=== PATIENT | female | born 1955 | race Caucasian/White ===

== ENCOUNTER → 2019-10-14 12:12 | Outpatient (BNVA) | payer MEDICARE, OTHER, SELFPAY | PROVIDERS: PCP Family Medicine; Visit Provider Family Medicine | DX: I10 Essential (primary) hypertension (principal); M25.50 Pain in unspecified joint; Z12.31 Encounter for screening mammogram for malignant neoplasm of breast; Z12.11 Encounter for screening for malignant neoplasm of colon; R60.0 Localized edema; Z00.00 Encounter for general adult medical examination without abnormal findings | CPT/HCPCS: 80053; 80061; 84443; 84550; 85025; 85651; 86431 ==

== ENCOUNTER 2019-10-27 08:39 | Day surgery (SDC) | payer MEDICARE, OTHER, SELFPAY ==
[2019-10-23 10:45] VITALS: BMI 57.4
[2019-10-27 08:55] VITALS: BP 198/88; PULSE 80; RESP 18; TEMP 36.3; O2SAT 98
[2019-10-27] MEDS: sodium chloride 0.9% 1,000 ML 30 ML IV (09:05)
--- NOTE | 2019-10-27 09:10 | P.ANESASSM_ITS ---
Pre-Anesthetic Assessment Pre-Anesthetic Assessment: Height/Weight: Height 1.65 m Weight 156.489 kg Temp Pulse Resp BP Pulse Ox 97.3 F L 80 18 198/88 98 10/27/19 08:55 10/27/19 08:55 10/27/19 08:55 10/27/19 08:55 10/27/19 08:55 Preop Diagnosis: s Proposed Procedure: Operation Date: 10/27/19 10:15 Proposed Procedures p Colonoscopy 15052 Z12.11(Not Applicable) - Prabhjot Ojeda MD Last intake: Intake Last Liquid Date 10/26/19 Last Liquid Time 21:00 Last Solid Date 10/24/19 Last Solid Time 18:00 Social: Social History: Tobacco (quit 2002) and No alcohol Exam: Pre-Anes Outpt Exam: alert, oriented x 3, clear to auscultation bilater ally and regular rate & rhythm Airway: Submandibular: WNL Cervical ROM: WNL MP: 2 Dentition: False (upper and lower) History/ROS: No significant history except as noted Pulmonary: Pulmonary: None reported CV/HEM: CV/HEM: HTN : : None reported Hepatic: Hepatic: None reported GI: GI: GERD (occ) Metabolic: Metabolic: Hyperlipidemia and Morbid obesity Musc/skel: Musc/skel: OA/DJD Neuropsych: Neuropsych: None reported Anesthetic Plan: ASA status: 3 Anesthesia: Anesthesia Evaluation and MAC Risk of > 500 ml blood loss (7ml/kg in children): No Meds/Allergies Current Medications: Current Medications Generic Name Dose Route Start Last Admin Trade Name Freq PRN Reason Stop Dose Admin Sodium Chloride 1,000 mls @ 30 ml s/hr 10/27/19 09:00 10/27/19 09:05 Sodium Chloride 0.9% IV 10/28/19 08:59 30 mls/hr .Q24H BETTY Administration PFSH Anesthesia PFSH: Medical History Arthralgia Essential hypertension Surgical History History of appendectomy History of bilateral cataract extraction History of hysterectomy Family History Mother CAD (coronary artery disease) Diabetes Hypertension Sister CAD (coronary artery disease) Cancer Diabetes Social History Smoking and tobacco status: smoker, details unknown Quit status (tobacco): has quit using tobacco Year quit tobacco: 2002 Second hand smoke exposure: No Alcohol intake: never Household members: spouse Marital status: History of recent travel: No Data Anesthesia Cardiac Studies: No Data to Display
--- NOTE | 2019-10-27 10:51 | W.PM.OPSUD ---
Surgery/Procedure H&P Update DATE OF PROCEDURE: October 27, 2019 DATE H&P PERFORMED: 10/22/19 PREOP DIAGNOSIS: s PLANNED PROCEDURE: Operation Date: 10/27/19 10:15 Proposed Procedures p Colonoscopy 81463 Z12.11(Not Applicable) - Prabhjot Ojeda MD
[2019-10-27 11:06] VITALS: BP 112/67; PULSE 94; RESP 16; TEMP 36.6; O2SAT 97
--- NOTE | 2019-10-27 11:07 | ANE.PACU2 ---
Inpatient post-anesthesia follow up: Airway intact: Yes Vital signs: Temperature 97.3 F Pulse Rate 80 Respiratory Rate 18 Blood Pressure 198/88 Pulse Oximetry 98 Oxygen Delivery Me thod Oxygen Flow Rate Fraction of Inspir ed Oxygen Hydration adequate: Yes Nausea and vomiting: No Pain level: 1 Mental status: Baseline
[2019-10-27 11:18] VITALS: BP 120/74; PULSE 69; RESP 16; O2SAT 100
== END 2019-10-27 11:33 | disposition home or self-care (01) ==
PROVIDERS: PCP Family Medicine; Visit Provider Internal Medicine
PROC: 0DJD8ZZ Inspection of Lower Intestinal Tract, Via Natural or Artificial Opening Endoscopic (ICD-10-PCS; CPT 45378; principal; 2019-10-27 10:15)
DX: Z12.11 Encounter for screening for malignant neoplasm of colon (principal); I10 Essential (primary) hypertension; K21.9 Gastro-esophageal reflux disease without esophagitis; E78.5 Hyperlipidemia, unspecified; E66.01 Morbid (severe) obesity due to excess calories; Z68.43 Body mass index [BMI] 50.0-59.9, adult; M19.90 Unspecified osteoarthritis, unspecified site; Z87.891 Personal history of nicotine dependence
CPT/HCPCS: 12345; G0121; J2704; J7030

== ENCOUNTER 2019-10-28 09:05 | Emergency (ER) | payer MEDICARE, OTHER, SELFPAY ==
[2019-10-28 09:11] VITALS: BMI 57.0
[2019-10-28 09:17] VITALS: BP 178/74; PULSE 73; RESP 20; TEMP 36.8; O2SAT 97
--- NOTE | 2019-10-28 09:27 | XR_ITS ---
WS: [id number] PORTABLE CHEST HISTORY: cp COMPARISON: 04/27/2009 Lungs are clear and well expanded. No pleural effusion or pneumothorax. Cardiac size: Normal. Mediastinum/Aorta: Normal mediastinum. No osseous abnormality seen. XR/XR chest 1V portable [id number] IMPRESSION: Unremarkable portable chest.
--- NOTE | 2019-10-28 09:27 | ECG_ITS ---
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 Measurements Intervals [place] Rate: 72 P: 83 FL: 172 QRS: -41 QRSD: 134 T: 80 QT: 391 QTc: 430 Interpretive Statements SINUS RHYTHM LEFT AXIS DEVIATION [QRS AXIS < -30] INTRAVENTRICULAR CONDUCTION DELAY [130+ ms QRS DURATION] LEFT VENTRICULAR HYPERTROPHY AND ST-T CHANGE [VOLTAGE CRITERIA PLUS ST/T ABNORMALITY] POSSIBLE SEPTAL MYOCARDIAL INFARCTION , OF INDETERMINATE AGE [30 ms Q WAVE IN V1/V2] No previous ECG available for comparison Electronically Signed On 10-28-2019 23:41:31 CDT by Yamil Vu M.D. [id number]
[2019-10-28 09:33] LABS: Basophils # 0.1 10^3/uL (0.0-0.1); Eosinophils # 0.3 10^3/uL (0.0-0.8); Eosinophils % 3.1 %; Hematocrit 40.3 % (37.0-47.0); Hemoglobin 12.5 g/dL (11.5-15.3); Lymphocytes # 1.5 10^3/uL (0.8-4.8); Lymphocytes % 14.9 %; Mean Corpuscular Hemoglobin 27.1 pg (28.0-34.0); Mean Corpuscular Volume 87.4 fL (81-99); Mean Platelet Volume 10.9 fL (7.4-10.4); Monocytes # 0.8 10^3/uL (0.2-0.9); Monocytes % 8.4 %; Neutrophils # 7.2 10^3/uL (1.8-7.7); Neutrophils % 72.4 %; Nucleated Red Blood Cells % 0 %; Platelet Count 273 10^3/cmm (130-400); Red Blood Count 4.61 10^6/uL (4.1-5.3); Red Cell Distribution Width 13.3 % (12.1-15.1)
[2019-10-28 09:58] LABS: Alanine Aminotransferase 13 U/L (0-33); Albumin Level 4.1 g/dL (3.5-5.2); Alkaline Phosphatase 83 IU/L (35-105); Anion Gap 16.9 (5-19); Aspartate Amino Transferase 12 U/L (0-32); Blood Urea Nitrogen 19 mg/dL (8-23); Calcium 9.3 mg/dL (8.5-10.5); Carbon Dioxide 28 mmol/L (22-29); Chloride 96 mmol/L (98-107); Globulin 2.7 g/dL (1.3-4.6); Glucose 275 mg/dL (65-115); Osmolality Calculated 290 mOsm/kg (285-295); Potassium 3.9 mmol/L (3.5-5.1); Sodium 137 mmol/L (136-145); Total Bilirubin 0.5 mg/dL (0.15-1.2); Total Protein 6.8 g/dL (6.6-8.7); Troponin(5th) Baseline 10 ng/L (0-10)
--- NOTE | 2019-10-28 11:25 | W.ED.CHESTPA ---
HPI - Chest Pain General: Chief Complaint: Chest Pain Stated Complaint: CP/HEAVY ARMS Time Seen by Provider: 10/28/19 09:14 History of Present Illness: HPI narrative: 63-year-old female presents with left jaw pain and left arm pain. She had some left-sided chest pain she describes as a stabbing sensation that began while she was sitting at the table and picked up a bowl. She is not previously had episodes like this before she has no known cardiac history she is never had any kind of cardiac work-up. She denied any shortness of breath or diaphoresis with it she did get nauseous she said it only lasted for a few minutes and then is completely resolved. She did have a colonoscopy yesterday. She still has some loose stools as a result of that. MD complaint: chest pain and chest heaviness Onset (ago): minute(s) Timing of current episode: episodic and now resolved Prior episodes: No Onset: during rest Pain location: left chest Pain radiation: left arm and left shoulder Severity: mild Quality: sharp and shooting Relieving factors: nothing Exacerbating factors: nothing Context: recent surgery (Colonoscopy yesterday) Associated symptoms: Reports no associated symptoms; Deny abdominal pain, dyspnea, fever(s), nausea or vomiting Review of Systems Const: Denies: fever(s), chills, body aches, change in appetite, fatigue or malaise ENMT: Denies: throat pain, ear or mastoid pain, nasal discharge or nasal congestion Card: Denies: chest pain, edema, dyspnea on exertion or orthopnea Resp: Denies: dyspnea, productive cough or non-productive cough GI: Reports: diarrhea; Denies: abdominal pain, nausea, vomiting, hematemesis, coffee ground emesis, constipation, bloating, hematochezia or melena : Denies: flank pain, difficulty voiding, dysuria, urinary frequency or urinary urgency Skin/Breast: Denies: rash or pruritus PFSH ED PFSH: Medical History Arthralgia Essential hypertension Surgical History History of appendectomy History of bilateral cataract extraction History of hysterectomy Family History Mother CAD (coronary artery disease) Diabetes Hypertension Sister CAD (coronary artery disease) Cancer Diabetes Social History Smoking and tobacco status: former smoker Quit status (tobacco): has quit using tobacco Year quit tobacco: 2002 Second hand smoke exposure: No Alcohol intake: never Household members: spouse Marital status: History of recent travel: No Physical Exam Const: COMMON NORMALS: no acute distress GENERAL APPEARANCE: cooperative and comfortable ORIENTATION/CONSCIOUSNESS: Yes awake, Yes oriented to person, Yes oriented to place and Yes oriented to time HENMT: COMMON NORMALS: normocephalic, atraumatic, hearing grossly normal bilaterally, external ears normal, EAC's normal, TM's normal bilaterally, Normal nasal mucous membranes and turbinates present, moist oral mucous membranes and oropharynx normal HEAD & SCALP: normocephalic and atraumatic NOSE: Normal nasal mucous membranes and turbinates present EXTERNAL EAR: Yes external ears normal EXTERNAL AUDITORY CANAL: EAC's normal TYMPANIC MEMBRANE: TM's normal bilaterally Eye: COMMON NORMALS: Equal, round and reactive pupils present, EOMs intact bilaterally, conjunctivae normal and no scleral icterus CONJUNCTIVA: Yes conjunctivae normal PUPIL: Yes Equal, round and reactive pupils present Neck/C-Spine: COMMON NORMALS: full ROM, no lymphadenopathy, supple and no JVD Lymph: LYMPHATIC: no lymphadenopathy noted and no lymphedema noted Resp: COMMON NORMALS: normal respiratory effort, No retractions, No use of accessory muscles and clear to auscultation bilaterally AUSCULTATION: clear to auscultation bilaterally Cardio: COMMON NORMALS: no JVD, regular rate, regular rhythm and No murmurs present (Cardio) RATE: regular rate RHYTHM: regular rhythm GI: COMMON NORMALS: Soft to palpation and No hepatosplenomegaly present AUSCULTATION: Yes normoactive bowel sounds PALPATION: Yes Soft to palpation, No Tenderness to palpation present (GI), No Guarding due to palpation present (GI) and Yes No hepatosplenomegaly present Extremity: COMMON NORMALS: normal to inspection, capillary refill normal, no clubbing, cyanosis or edema, no calf tenderness and no pedal edema Neuro: SENSORIUM/ORIENTATION: Yes oriented to person, Yes oriented to place and Yes oriented to time Skin: COMMON NORMALS: no rashes or lesions noted GENERAL SKIN EXAM: no rashes or lesions noted Course Vital Signs: Vital signs: Vital Signs Temperature 98.2 F 10/28/19 09:17 Pulse Rate 64 10/28/19 12:29 Respiratory Rate 16 10/28/19 12:29 Blood Pressure 141/56 10/28/19 12:29 Pulse Oximetry 96 10/28/19 12:29 MDM - Chest Pain MDM Narrative: Medical decision making narrative: Troponin x2 is negative. We will go ahead and discharge patient home on baby aspirin daily and set up for outpatient stress testing. Lab Data: Labs: Lab Results 10/28/19 10/28/19 10/28/19 Range/Units 09:27 09:27 09:27 WBC 10.0 (4.0-10.0) 10^3/ uL RBC 4.61 (4.1-5.3) 10^6/u L Hgb 12.5 (11.5-15.3) g/dL Hct 40.3 (37.0-47.0) % MCV 87.4 (81-99) fL MCH 27.1 L (28.0-34.0) pg MCHC 31.0 (30.0-36.0) g/dL RDW 13.3 (12.1-15.1) % Plt Count 273 (130-400) 10^3/c mm MPV 10.9 H (7.4-10.4) fL Neut % (Auto) 72.4 % Lymph % (Auto) 14.9 % [place] % (Auto) 8.4 % Eos % (Auto) 3.1 % Baso % (Auto) 1.0 % Neut # (Auto) 7.2 (1.8-7.7) 10^3/u L Lymph # (Auto) 1.5 (0.8-4.8) 10^3/u L [place] # (Auto) 0.8 (0.2-0.9) 10^3/u L Eos # (Auto) 0.3 (0.0-0.8) 10^3/u L Baso # (Auto) 0.1 (0.0-0.1) 10^3/u L Nucleated RBC % (a uto) 0 % Nucleated RBCs # 0.0 /100WBC Sodium 137 (136-145) mmol/L Potassium 3.9 (3.5-5.1) mmol/L Chloride 96 L (98-107) mmol/L Carbon Dioxide 28 (22-29) mmol/L Anion Gap 16.9 (5-19) BUN 19 (8-23) mg/dL Creatinine 1.1 H (0.5-0.9) mg/dL GFR Calculation 50.0 L (90-130) mL/min Glucose 275 H (65-115) mg/dL Calculated Osmolal ity 290 (285-295) mOsm/k g Calcium 9.3 (8.5-10.5) mg/dL Total Bilirubin 0.5 (0.15-1.2) mg/dL AST 12 (0-32) U/L ALT 13 (0-33) U/L Alkaline Phosphata se 83 (35-105) IU/L Troponin T Baselin e 10 (0-10) ng/L Troponin T 120 Min hoopa (0-10) ng/L Delta Troponin T (0-10) ABS# Total Protein 6.8 (6.6-8.7) g/dL Albumin 4.1 (3.5-5.2) g/dL Globulin 2.7 (1.3-4.6) g/dL 10/28/19 Range/Units 11:30 WBC (4.0-10.0) 10^3/ uL RBC (4.1-5.3) 10^6/u L Hgb (11.5-15.3) g/dL Hct (37.0-47.0) % MCV (81-99) fL MCH (28.0-34.0) pg MCHC (30.0-36.0) g/dL RDW (12.1-15.1) % Plt Count (130-400) 10^3/c mm MPV (7.4-10.4) fL Neut % (Auto) % Lymph % (Auto) % [place] % (Auto) % Eos % (Auto) % Baso % (Auto) % Neut # (Auto) (1.8-7.7) 10^3/u L Lymph # (Auto) (0.8-4.8) 10^3/u L [place] # (Auto) (0.2-0.9) 10^3/u L Eos # (Auto) (0.0-0.8) 10^3/u L Baso # (Auto) (0.0-0.1) 10^3/u L Nucleated RBC % (a uto) % Nucleated RBCs # /100WBC Sodium (136-145) mmol/L Potassium (3.5-5.1) mmol/L Chloride (98-107) mmol/L Carbon Dioxide (22-29) mmol/L Anion Gap (5-19) BUN (8-23) mg/dL Creatinine (0.5-0.9) mg/dL GFR Calculation (90-130) mL/min Glucose (65-115) mg/dL Calculated Osmolal ity (285-295) mOsm/k g Calcium (8.5-10.5) mg/dL Total Bilirubin (0.15-1.2) mg/dL AST (0-32) U/L ALT (0-33) U/L Alkaline Phosphata se (35-105) IU/L Troponin T Baselin e (0-10) ng/L Troponin T 120 Min hoopa 9.87 (0-10) ng/L Delta Troponin T -0.13 L (0-10) ABS# Total Protein (6.6-8.7) g/dL Albumin (3.5-5.2) g/dL Globulin (1.3-4.6) g/dL Discharge Plan Discharge Patient Disposition: Home, Self-Care Clinical Impression: Atypical chest pain, Essential hypertension Condition: Stable Prescriptions: New Aspir-81 81 mg tablet,delayed release (DR/EC) 81 mg PO DAILY Qty: 30 RF: 0 No Action lisinopril-hydrochlorothiazide 20-25 mg tablet 1 tab PO DAILY Qty: 30 RF: 1 acetaminophen [Tylenol Arthritis Pain] 650 mg tablet extended release 650 mg PO DAILY RF: 0 rosuvastatin [Crestor] 5 mg tablet 5 mg PO DAILY Qty: 90 RF: 0 Discharge Orders: Discharge Order (Routine); Ordered 10/28/19 Ordered By: Remberto Sheffield Referrals: Helena Frazier MD [Primary Care Provider] - Discharge Diet: Usual diet Discharge Activity: Limit activity as instructed Activity Restrictions/Additional Instructions: Case management will call to set up a stress test for you. Discharge Date/Time: 10/28/19 12:30 Coding Level of Care Code ED Manager Location for Chg Fwd Exam Comprehensive
--- NOTE | 2019-10-28 11:27 | ECG_ITS ---
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 Measurements Intervals [place] Rate: 61 P: 64 [place]: 175 QRS: -38 QRSD: 129 T: 53 QT: 409 QTc: 413 Interpretive Statements SINUS RHYTHM LEFT AXIS DEVIATION [QRS AXIS < -30] POSSIBLE RIGHT VENTRICULAR CONDUCTION DELAY [RSR (QR) IN V1/V2] MINIMAL VOLTAGE CRITERIA FOR LVH, CONSIDER NORMAL VARIANT [MEETS CRITERIA IN ONE OF: R(aVL), S(V1), R(V5), R(V5/V6)+S(V1)] SEPTAL MYOCARDIAL INFARCTION , OF INDETERMINATE AGE [40+ ms Q WAVE IN V1/V2] No previous ECG available for comparison Electronically Signed On 10-29-2019 0:10:17 CDT by Yamil Vu M.D. [id number]
[2019-10-28 11:52] LABS: Troponin 5 2HR 9.87 ng/L (0-10)
[2019-10-28 11:57] LABS: Troponin 5 2HR Delta -0.13 ABS# (0-10)
[2019-10-28 12:29] VITALS: BP 141/56; PULSE 64; RESP 16; O2SAT 96
--- NOTE | 2019-10-28 12:39 | DCPLANNER ---
manager golf was asked to schedule an outpatient stress test for patient. manager golf spoke with patient, she stated that she did want test scheduled and that she sees at the [facility]. manager golf had order signed, faxed to centralized scheduling, will call for appointment information.
--- NOTE | 2019-10-30 14:18 | DCPLANNER ---
Patient has an out patient stress test scheduled for , November at 10:00. Centralized scheduling will call patient with appointment information.
--- NOTE | 2019-11-18 11:24 | DCPLANNER ---
Patient did attend stress test scheduled for 11.13.19.
== END 2019-10-28 12:30 | disposition home or self-care (01) ==
PROVIDERS: Emergency Provider Family Medicine; PCP Family Medicine
DX: R07.89 Other chest pain (principal); I10 Essential (primary) hypertension; Z87.891 Personal history of nicotine dependence
CPT/HCPCS: 12345; 36415; 71045; 80053; 84484; 85025; 93005; 99283; 99284

== ENCOUNTER 2019-11-13 07:13 | Outpatient (CLI) | payer MEDICARE, OTHER, SELFPAY ==
--- NOTE | 2019-11-13 07:37 | NMCV_ITS ---
NM brenda perf SPECT r/s* [id number] Alicja Flaherty Age: 64 Gender: F : 1955 Exam Date: 11/13/2019 08:46 Ordering Phys: Helena Frazier MD Technologist: IRA Garduno Exam Location: [facility] Indications: Atypical chest pain STRESS TEST [facility] IMAGE PROTOCOL Rest/Stress 1 Lexiscan Day Radiopharmaceutical Dose (mCi) Administration Site Administered by Rest: Tc-99m 10.2 IV IRA Garduno Sestamibi Stress:Tc-99m 33.0 IV IRA Holman Sestamibi Rest: 13-Nov-2019 60 Discovery 630 Stress: 13-Nov-2019 60 Discovery 630 0.4mg Lexiscan. Images obtained in supine and prone position. SPECT RESULTS Technical Quality: Good Raw Data Analysis: Breast attenuation, Soft tissue attenuation Image Corrections: No attenuation or motion correction applied Summed Stress Score: 0 Summed Rest Score: 0 Summed Difference Score: 0 PERFUSION FINDINGS SPECT images demonstrate homogeneous tracer distribution throughout the myocardium. FUNCTIONAL RESULTS (calculated via Gated SPECT) Stress Image LV EF (%): 74 Stress EDV (mL):101 TID: 1.02 Stress ESV (mL):26 FUNCTIONAL FINDINGS: The left ventricle is normal in size. Transient Ischemia Dilatation of 1. There is normal left ventricular systolic function. The left ventricular ejection fraction is normal with a value of 74%. There is normal left ventricular wall thickening. Normal end diastolic and end systolic volumes. IMPRESSIONS 1. Myocardial perfusion imaging is normal. 2. Overall left ventricular systolic function is normal without regional wall motion abnormalities. 3. The left ventricular ejection fraction is normal with a value of 74%. 4. This study suggests a low likelihood of angiographically significant coronary artery disease. Edith Mcdaniels MD (Electronically Signed) Final Date: 13 November 2019 12:21 S
--- NOTE | 2019-11-13 07:37 | ECG_ITS ---
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 Interpretive Statements NAME OF STUDY: LEXISCAN SESTAMIBI STRESS TEST INDICATION: Atypical Chest Pain, NOTE: Please note that this is the electrocardiogram portion of the Lexiscan/Sestamibi stress test. The perfusion scan will be documented separately. DATA: Baseline heart rate was 72 beats per minute. Baseline blood pressure was 146/82 millimeters of mercury. Target heart rate was 155. Maximum heart rate achieved was 84. which was 54 % of the predicted target heart rate. Maximum blood pressure was 150/83 millimeters of mercury. The reason for ending the test was completion of the protocol. The patient did not experience any symptoms. ELECTROCARDIOGRAM: BASELINE: Sinus rhythm. Normal axis. Interventricular conduction delay old anterior wall myocardial infarction EXERCISE: After Lexiscan injection, no ST-T changes suggestive of ischemic noted. No arrhythmia noted. CONCLUSION: Please note due to baseline abnormality of the EKG specificity and sensitivity of the EKG portion of LexiScan MIBI stress test will be low 1. EKG not suggestive of ischemia 2. Lexiscan injection unremarkable. 3. Perfusion scan will be documented separately. Electronically Signed On 11-18-2019 19:43:17 CDT by Africa Carr M.D. [id number]
[2019-11-13 08:01] VITALS: BMI 57.0
[2019-11-13] MEDS: ondansetron 2 mg/ML SDV 2 mL 4 MG IVP (09:41)
[2019-11-13 10:23] VITALS: BP 144/79; PULSE 83
== END 2019-11-13 07:14 | disposition home or self-care (01) ==
PROVIDERS: PCP Family Medicine; Visit Provider Family Medicine
DX: R07.89 Other chest pain (principal)
CPT/HCPCS: 78452; 93017; A9500; J2785

== ENCOUNTER 2019-11-18 13:29 | Outpatient (CLI) | payer MEDICARE, OTHER, SELFPAY ==
--- NOTE | 2019-11-18 14:00 | MM_ITS ---
WS: [id number] BILATERAL DIGITAL SCREENING MAMMOGRAPHY WITH CAD CLINICAL INFORMATION: screening HISTORY: Screening mammogram. No current complaints. COMPARISON: February 06, 2007 TECHNIQUE: Bilateral CC and MLO views. FINDINGS: Scattered fibroglandular densities bilaterally. No suspicious focal mass, asymmetry, calcifications, or architectural distortion. No evidence of malignancy. Stable Punctate calcifications left breast. MM/[place] [id number] IMPRESSION: BI-RADS: 2-Benign FOLLOW UP: 1 Year Follow-up Recommend return to annual screening mammography.
== END 2019-11-18 13:30 | disposition home or self-care (01) ==
LOC: RADSHAW 13:35
PROVIDERS: PCP Family Medicine; Visit Provider Family Medicine
DX: Z12.31 Encounter for screening mammogram for malignant neoplasm of breast (principal)
CPT/HCPCS: 77067

== ENCOUNTER → 2020-02-04 10:39 | Outpatient (BNVA) | payer MEDICARE, OTHER, SELFPAY | PROVIDERS: PCP Family Medicine; Visit Provider Family Medicine | DX: I10 Essential (primary) hypertension (principal); E78.5 Hyperlipidemia, unspecified; E78.2 Mixed hyperlipidemia | CPT/HCPCS: 80053; 80061; 84443; 85025 ==

== ENCOUNTER → 2020-02-11 13:56 | Outpatient (BNVA) | payer MEDICARE, OTHER, SELFPAY | PROVIDERS: PCP Family Medicine; Visit Provider Podiatrist Foot & Ankle Surgery | DX: M79.675 Pain in left toe(s) (principal) | CPT/HCPCS: 73630 ==

== ENCOUNTER 2020-04-14 12:18 | Outpatient (CLI) | payer MEDICARE, OTHER, SELFPAY ==
--- NOTE | 2020-04-14 12:45 | USCV_ITS ---
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 Some features of extensive arterial sclerosis Dr Yamil Vu MD [facility] (Electronically Signed) Final Date: 16 April 2020 18:53 S
== END 2020-04-14 12:19 | disposition home or self-care (01) ==
LOC: US 12:18
PROVIDERS: PCP Family Medicine; Visit Provider Podiatrist Foot & Ankle Surgery
DX: M79.672 Pain in left foot (principal)
CPT/HCPCS: 93923

== ENCOUNTER → 2020-05-26 11:59 | Outpatient (BNVA) | payer MEDICARE, OTHER, SELFPAY | PROVIDERS: PCP Family Medicine; Visit Provider Family Medicine | DX: E78.2 Mixed hyperlipidemia (principal); I10 Essential (primary) hypertension; Z76.0 Encounter for issue of repeat prescription; M25.50 Pain in unspecified joint | CPT/HCPCS: 80053; 80061; 84443; 85025 ==

== ENCOUNTER → 2020-08-25 11:38 | Outpatient (BNVA) | payer MEDICARE, OTHER, SELFPAY | PROVIDERS: PCP Family Medicine; Visit Provider Family Medicine | DX: E78.2 Mixed hyperlipidemia (principal); I10 Essential (primary) hypertension; M25.50 Pain in unspecified joint | CPT/HCPCS: 80053; 80061; 84443; 85025 ==

== ENCOUNTER → 2020-08-29 14:53 | Outpatient (BNVA) | payer MEDICARE, OTHER, SELFPAY | PROVIDERS: PCP Family Medicine; Visit Provider Nurse Practitioner | DX: M17.12 Unilateral primary osteoarthritis, left knee (principal) | CPT/HCPCS: 73562 ==

== ENCOUNTER → 2020-11-24 10:24 | Outpatient (BNVA) | payer MEDICARE, OTHER, SELFPAY | PROVIDERS: PCP Family Medicine; Visit Provider Nurse Practitioner Family | DX: I10 Essential (primary) hypertension (principal); E78.2 Mixed hyperlipidemia; M79.89 Other specified soft tissue disorders; M17.12 Unilateral primary osteoarthritis, left knee; R73.9 Hyperglycemia, unspecified | CPT/HCPCS: 80053; 80061; 83036; 84443; 85025 ==

== ENCOUNTER → 2020-12-01 09:12 | Outpatient (BNVA) | payer MEDICARE, OTHER, SELFPAY | PROVIDERS: PCP Family Medicine; Visit Provider Nurse Practitioner Family | DX: D64.9 Anemia, unspecified (principal); E11.9 Type 2 diabetes mellitus without complications | CPT/HCPCS: 82728; 83550 ==

== ENCOUNTER → 2020-12-10 10:16 | Outpatient (BNVA) | payer MEDICARE, OTHER, SELFPAY | PROVIDERS: PCP Nurse Practitioner Family; Visit Provider Nurse Practitioner Family | DX: D64.9 Anemia, unspecified (principal) | CPT/HCPCS: 82270 ==

== ENCOUNTER → 2020-12-22 09:42 | Outpatient (BNVA) | payer MEDICARE, OTHER, SELFPAY | PROVIDERS: PCP Nurse Practitioner Family; Visit Provider Podiatrist Foot & Ankle Surgery | DX: M19.072 Primary osteoarthritis, left ankle and foot (principal) | CPT/HCPCS: 73630 ==

== ENCOUNTER 2021-02-03 14:20 | Outpatient (CLI) | payer MEDICARE, OTHER, SELFPAY ==
--- NOTE | 2021-02-03 14:30 | MM_ITS ---
WS: [id number] BILATERAL SCREENING DIGITAL MAMMOGRAM WITH CAD HISTORY: SCREENING COMPARISON: 11/18/2019 and 02/06/2007 Bilateral CC and MLO views submitted. Computer aided detection analyzed. Breast composition: There are scattered areas of fibroglandular density. No suspicious masses, microc alcifications or architectural distortion. Benign calcifications in the LEFT breast is stable. No lili picious masses. MM/[place] [id number] IMPRESSION: BI-RADS: 2-Benign FOLLOW UP: 1 Year Follow-up
== END 2021-02-03 14:21 | disposition home or self-care (01) ==
LOC: RADSHAW 14:27
PROVIDERS: PCP Nurse Practitioner Family; Visit Provider Nurse Practitioner Family
DX: Z12.31 Encounter for screening mammogram for malignant neoplasm of breast (principal)
CPT/HCPCS: 77067

== ENCOUNTER → 2021-02-23 08:37 | Outpatient (BNVA) | payer MEDICARE, OTHER, SELFPAY | PROVIDERS: PCP Nurse Practitioner Family; Visit Provider Nurse Practitioner Family | DX: E11.9 Type 2 diabetes mellitus without complications (principal); Z79.4 Long term (current) use of insulin; E78.2 Mixed hyperlipidemia; M25.50 Pain in unspecified joint; M79.89 Other specified soft tissue disorders; I10 Essential (primary) hypertension | CPT/HCPCS: 80053; 80061; 83036; 84443; 85025 ==

== ENCOUNTER 2021-04-18 11:38 | Outpatient (CLI) | payer MEDICARE, OTHER, SELFPAY ==
--- NOTE | 2021-04-18 11:44 | XR_ITS ---
WS: [id number] CHEST 2 VIEWS HISTORY: R05.9 - Cough, unspecified COMPARISON: 10/28/2019 Lungs: Costophrenic angles are excluded on the PA projection. Diffuse haziness and increased intersti tial thickening throughout both lungs but greatest on the LEFT. Pulmonary vasculature is mildly promi nent. No pleural effusion. Cardiac size: Normal. Mediastinum/Aorta: Mild atherosclerosis aorta. Bones: Anterior bridging osteophytes throughout the thoracic spine. XR/XR chest 2V* [id number] IMPRESSION: 1. Mild diffuse acute pneumonitis versus mild pulmonary edema. 2. No pneumonia.
== END 2021-04-18 11:39 | disposition home or self-care (01) ==
PROVIDERS: PCP Nurse Practitioner Family; Visit Provider Nurse Practitioner Family
DX: R05.9 Cough, unspecified (principal); Z20.822 Contact with and (suspected) exposure to COVID-19
CPT/HCPCS: 71046; 87400; 87635

== ENCOUNTER 2021-04-27 10:26 | Outpatient (CLI) | payer MEDICARE, OTHER, SELFPAY ==
--- NOTE | 2021-04-27 10:41 | XR_ITS ---
WS: [id number] PROCEDURE: XR chest 2V* [id number] CLINICAL INFORMATION: J18.9 - Pneumonia, unspecified organism COMPARISON: April 18, 2021 FINDINGS: Heart: Mild cardiomegaly. Aortic calcification. Lungs: Both lungs are well aerated. No acute pulmonary infiltrates today. Previously described inters titial infiltrates have essentially resolved. No focal pneumonia or pleural fluid. Bones: Hypertrophic changes thoracic spine with bridging osteophytes.. XR/XR chest 2V* [id number] IMPRESSION: Previously described interstitial infiltrates have resolved. No acute pulmonary infiltrates today.
== END 2021-04-27 10:27 | disposition home or self-care (01) ==
PROVIDERS: PCP Nurse Practitioner Family; Visit Provider Nurse Practitioner Family
DX: J18.9 Pneumonia, unspecified organism (principal); R05.9 Cough, unspecified
CPT/HCPCS: 71046

== ENCOUNTER → 2021-05-11 08:39 | Outpatient (BNVA) | payer MEDICARE, OTHER, SELFPAY | PROVIDERS: PCP Nurse Practitioner Family; Visit Provider Nurse Practitioner Family | DX: E11.9 Type 2 diabetes mellitus without complications (principal); Z79.4 Long term (current) use of insulin; D64.9 Anemia, unspecified | CPT/HCPCS: 80053; 80061; 83036; 83540; 84443; 85025 ==

== ENCOUNTER → 2021-08-03 08:50 | Outpatient (BNVA) | payer MEDICARE, OTHER, SELFPAY | PROVIDERS: PCP Nurse Practitioner Family; Visit Provider Nurse Practitioner Family | DX: E78.2 Mixed hyperlipidemia (principal); E11.9 Type 2 diabetes mellitus without complications | CPT/HCPCS: 80053; 80061; 83036; 84443; 85025 ==

== ENCOUNTER → 2021-09-01 11:00 | Outpatient (BNVA) | payer MEDICARE, OTHER, SELFPAY | PROVIDERS: PCP Nurse Practitioner Family; Visit Provider Nurse Practitioner Family | DX: R10.30 Lower abdominal pain, unspecified (principal); R00.0 Tachycardia, unspecified | CPT/HCPCS: 80053; 81000; 84484; 85025; 87400 ==

== ENCOUNTER 2021-09-02 10:39 | Emergency (ER) | payer MEDICARE, OTHER, SELFPAY ==
[2021-09-02 10:44] VITALS: BP 198/62; PULSE 84; RESP 20; TEMP 36.3; O2SAT 95; BMI 59.3
--- NOTE | 2021-09-02 11:00 | ECG_ITS ---
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 Measurements Intervals [place] Rate: 65 P: 84 OH: 166 QRS: -62 QRSD: 116 T: 81 QT: 401 QTc: 417 Interpretive Statements SINUS RHYTHM LEFT ANTERIOR FASCICULAR BLOCK [QRS AXIS <= -45, QR IN I, RS IN II] Compared to ECG 10/28/2019 11:22:16 Left anterior fascicular block now present Left-axis deviation no longer present Myocardial infarct finding no longer present Electronically Signed On 09-02-2021 20:17:18 CDT by Edith Mcdaniels M.D. [email or web address] Bioscienceregency meridianGuangzhou Metechun[email or web address]/store/NU/[id number] sanderson
--- NOTE | 2021-09-02 11:00 | XRR_ITS ---
PROCEDURE INFORMATION: Exam: XR Chest Exam date and time: 09/02/2021 11:18 AM Age: 65 years old Clinical indication: Pain; Angina pectoris; Additional info: Cp TECHNIQUE: Imaging protocol: XR of the chest. Views: 1 view. COMPARISON: CR XR chest 2V* [id number] 04/27/2021 10:47 AM FINDINGS: Lungs: Unremarkable. No consolidation. Pleural spaces: Unremarkable. No pleural effusion. No pneumothorax. Heart/Mediastinum: Unremarkable. No cardiomegaly. Bones/joints: Unremarkable. XR/XR chest 1V portable [id number] IMPRESSION: No acute findings.
--- NOTE | 2021-09-02 11:01 | W.ED.RECABL ---
Documented by User: MARYSE Cook 09/02/21 11:04 HPI - Recheck/Abnormal Lab/Rx General: Chief Complaint: Recheck/Abnormal Lab/Rx Stated Complaint: poss heart attack Time Seen by Provider: 09/02/21 10:55 History of Present Illness: Patient states he started having some chest pain on Sunday then it woke her up with through the night occasionally she was seen at the clinic yesterday and had lab work done. Said her troponin was elevated so she was sent here to the ER patient she has mild discomfort middle of her chest. She denies any pressure. She had shortness of breath x1 with this. Denies any diaphoresis. Patient is diabetic and her blood sugars been doing well she said. She is currently treated for hypertension and high cholesterol and diabetes. Review of Systems Const: Denies: fever(s), chills or body aches Eyes: Denies: eye discomfort ENMT: Denies: throat pain Card: Reports: chest pain; Denies: irregular heart rhythm, lightheadedness or dyspnea on exertion Resp: Denies: dyspnea GI: Denies: abdominal pain, nausea or vomiting Skin/Breast: Denies: rash Neuro: Denies: headache(s) Psych: Denies: depression or suicidal ideation PFSH ED PFSH: Medical History Arthralgia Essential hypertension Surgical History History of appendectomy History of bilateral cataract extraction History of hysterectomy History of tonsillectomy History of tubal ligation Family History Mother CAD (coronary artery disease) Diabetes Hypertension Sister CAD (coronary artery disease) Cancer Diabetes Social History Smoking and tobacco status: never smoked Quit status (tobacco): has quit using tobacco Year quit tobacco: 2002 Second hand smoke exposure: No Alcohol intake: never Household members: spouse Marital status: History of recent travel: No Physical Exam Const: COMMON NORMALS: no acute distress, patient oriented x3 and alert HENMT: COMMON NORMALS: normocephalic and external ears normal HEAD & SCALP: normocephalic EXTERNAL EAR: Yes external ears normal Eye: COMMON NORMALS: EOMs intact bilaterally Neck/C-Spine: COMMON NORMALS: no JVD Resp: COMMON NORMALS: normal respiratory effort and No use of accessory muscles Cardio: COMMON NORMALS: no JVD GI: INSPECTION: Yes normal to inspection Extremity: COMMON NORMALS: normal to inspection and full ROM Neuro: COMMON NORMALS: patient oriented x3 SENSORIUM/ORIENTATION: Yes alert Psych: COMMON NORMALS: mental status grossly normal Skin: COMMON NORMALS: no rashes or lesions noted GENERAL SKIN EXAM: no rashes or lesions noted Course Vital Signs: Vital signs: Vital Signs Temperature 97.6 F 09/02/21 14:03 Pulse Rate 67 09/02/21 14:03 Respiratory Rate 17 09/02/21 14:03 Blood Pressure 124/78 09/02/21 14:03 Pulse Oximetry 95 09/02/21 14:03 MDM - Recheck/Abnormal Lab/Rx Lab Data : 09/02/21 11:20 09/02/21 11:20 Radiology Impressions Chest X-Ray 09/02/21 11:00 IMPRESSION: No acute findings. Laboratory Results WBC 10.7 10^3/uL (4.0-10.0) H 09/02/21 11:20 RBC 4.07 10^6/uL (4.1-5.3) L 09/02/21 11:20 Hgb 11.2 g/dL (11.5-15.3) L 09/02/21 11:20 Hct 35.7 % (37.0-47.0) L 09/02/21 11:20 MCV 87.7 fl (81-99) 09/02/21 11:20 MCH 27.5 pg (28.0-34.0) L 09/02/21 11:20 MCHC 31.4 g/dL (30.0-36.0) D 09/02/21 11:20 RDW 14.4 % (12.1-15.1) 09/02/21 11:20 Plt Count 316 10^3/cmm (130-400) 09/02/21 11:20 MPV 10.7 fL (7.4-10.4) H 09/02/21 11:20 Neut % (Auto) 71.4 % 09/02/21 11:20 Lymph % (Auto) 15.1 % 09/02/21 11:20 [place] % (Auto) 6.8 % 09/02/21 11:20 Eos % (Auto) 5.3 % 09/02/21 11:20 Baso % (Auto) 0.9 % 09/02/21 11:20 Neut # (Auto) 7.61 10^3/uL (1.8-7.7) 09/02/21 11:20 Lymph # (Auto) 1.6 10^3/uL (0.8-4.8) 09/02/21 11:20 [place] # (Auto) 0.7 10^3/uL (0.2-0.9) 09/02/21 11:20 Eos # (Auto) 0.6 10^3/uL (0.0-0.8) 09/02/21 11:20 Baso # (Auto) 0.1 10^3/uL (0.0-0.1) 09/02/21 11:20 Nucleated RBC % (auto) 0 % 09/02/21 11:20 Nucleated RBCs # 0.0 /100WBC 09/02/21 11:20 PT 13.10 SECONDS (12.1-14.9) 09/02/21 11:20 INR 0.96 (0.8-1.2) 09/02/21 11:20 Sodium 136 mmol/L (136-145) 09/02/21 11:20 Potassium 4.5 mmol/L (3.5-5.1) 09/02/21 11:20 Chloride 101 mmol/L (98-107) 09/02/21 11:20 Carbon Dioxide 25 mmol/L (22-29) 09/02/21 11:20 Anion Gap 14.5 (5-19) 09/02/21 11:20 BUN 23 mg/dL (8-23) 09/02/21 11:20 Creatinine 1.1 mg/dL (0.5-0.9) H 09/02/21 11:20 GFR Calculation 49.7 mL/min (90-130) L 09/02/21 11:20 Glucose 109 mg/dL (65-115) 09/02/21 11:20 Calculated Osmolality 286 mOsm/kg (285-295) 09/02/21 11:20 Calcium 8.6 mg/dL (8.5-10.5) 09/02/21 11:20 Total Bilirubin 0.3 mg/dL (0.15-1.2) 09/02/21 11:20 AST 13 U/L (0-32) 09/02/21 11:20 ALT 15 U/L (0-33) 09/02/21 11:20 Alkaline Phosphatase 71 IU/L (35-105) 09/02/21 11:20 Troponin T Baseline 15 ng/L (0-10) H 09/02/21 11:20 Troponin T 120 Minute 15.33 ng/L (0-10) H 09/02/21 12:43 Delta Troponin T 0.33 ABS# (0-10) 09/02/21 12:43 Total Protein 6.9 g/dL (6.6-8.7) 09/02/21 11:20 Albumin 4.4 g/dL (3.5-5.2) 09/02/21 11:20 Globulin 2.5 g/dL (1.3-4.6) 09/02/21 11:20 EKG Data EKG 1: EKG interpretation date: 09/02/21 EKG interpretation time: 10:51 Computer generated interpretation: Sinus rhythm with a ventricular rate 65 bpm left anterior fascicular block. RI interval 166 ms QRS duration 116 ms QT is 401 ms Discharge Plan Discharge Patient Disposition: Home Clinical Impression: Chest pain Condition: Stable Prescriptions: New isosorbide mononitrate 30 mg tablet extended release 24 hr 30 mg PO DAILY PRN (Reason: chest pain) 20 Days Qty: 20 0RF No Action Estroven Menopause 400 mcg-40 mg- 40 mg-100 mg tablet 1 tab PO BEDTIME 0RF albuterol sulfate [ProAir HFA] 90 mcg/actuation HFA aerosol inhaler 2 puff inhalation QID PRN (Reason: shortness of breath or wheezing) Qty: 6.7 0RF albuterol sulfate 2.5 mg /3 mL (0.083 %) solution for nebulization 2.5 mg inhalation QID PRN (Reason: shortness of breath or wheezing) Qty: 75 0RF (DME) compressor, for nebulizer Device See Rx Instructions .Route Qty: 1 0RF Rx Instructions: As directed (DME) nebulizer accessories Kit See Rx Instructions .Route Qty: 1 0RF Rx Instructions: As directed Aspir-81 81 mg Tablet,Delayed Release (Dr/Ec) 81 mg PO QAM 0RF budesonide 0.5 mg/2 mL suspension for nebulization 0.5 mg inhalation BID PRN (Reason: Shortness Of Breath) 0RF Vitamin B-12 1 tab PO QAM 0RF amlodipine 10 mg tablet 10 mg PO BEDTIME 0RF diclofenac sodium 75 mg tablet,delayed release (DR/EC) 75 mg PO BID 0RF Lasix 20 mg tablet 20 mg PO QAM 0RF lisinopril 40 mg tablet 40 mg PO QAM 0RF metformin 500 mg tablet extended release 24 hr 500 mg PO BEDTIME 0RF rosuvastatin 5 mg tablet 5 mg PO BEDTIME 0RF Discharge Orders: Discharge ED (Routine); Ordered 09/02/21 Ordered By: Doretha Urban Referrals: Joelle Jones FNP-C [Primary Care Provider] - Discharge Diet: Advance as tolerated Discharge Activity: Increase activity as tolerated Patient Instructions: Chest Pain (ED) Activity Restrictions/Additional Instructions: Come back to the emergency room if your chest pain worsens, have any fever or chills, worsening shortness of breath, worsening exertional lightheadedness, or any new or concerning complaints. Our catalytic case operator will have you follow-up with Cardiology in the next few days. You would be expected to have a phone call with our catalytic case operator who will put you on the schedule. You can expect a call from us in the next 2-3 days. If you don't hear from us, call us back in the emergency room at [phone]. Sign Out Sign Out Data: Patient Sign Out occurred on 09/02/21 at 12:31. Patient's care was discussed, and care was transferred from to Doretha Urban MD. Coding Level of Care Code ED Abap Developer for Chg Fwd Exam Comprehensive Documented by User: Doretha Urban MD 09/02/21 18:40 HPI - Recheck/Abnormal Lab/Rx General: Chief Complaint: Recheck/Abnormal Lab/Rx Stated Complaint: poss heart attack Time Seen by Provider: 09/02/21 10:55 PFSH ED PFSH: Medical History Arthralgia Essential hypertension Surgical History History of appendectomy History of bilateral cataract extraction History of hysterectomy History of tonsillectomy History of tubal ligation Family History Mother CAD (coronary artery disease) Diabetes Hypertension Sister CAD (coronary artery disease) Cancer Diabetes Social History Smoking and tobacco status: never smoked Quit status (tobacco): has quit using tobacco Year quit tobacco: 2002 Second hand smoke exposure: No Alcohol intake: never Household members: spouse Marital status: History of recent travel: No Physical Exam Cardio: COMMON NORMALS: regular rate and regular rhythm RATE: regular rate RHYTHM: regular rhythm OTHER: 2+ radial pulses b/l Course Vital Signs: Vital signs: Vital Signs Temperature 97.6 F 09/02/21 14:03 Pulse Rate 67 09/02/21 14:03 Respiratory Rate 17 09/02/21 14:03 Blood Pressure 124/78 09/02/21 14:03 Pulse Oximetry 95 09/02/21 14:03 MDM - Recheck/Abnormal Lab/Rx Medical Decision Making 65-year-old female with history of diabetes, hypertension, former smoking presenting to emergency room with concerns for chest pressure. On physical exam, patient has 2+ radial pulses. No active chest pressure currently. EKG showing regular sinus rhythm at HT of [56]. Normal axis. No ST elevations/depressions to suggest coronary occlusion. Normal RI, QRS, QT intervals. X-ray chest did not show any signs of acute pathologies. Troponin of 15 with similar deltra troponin. While observed the emergency room, patient did not have any active chest pain lightheadedness or shortness of breath. Patient did not have any dysrhythmia on the monitor. No suspicion for aortic dissection given no widened mediastinum, 2+ upper extremity pulses, or tearing pain. No suspicion for PE given no pleuritic chest pain, recent immobilization or surgery hemoptysis, or other VTE risk factors. EKG is non-ischemic. XR normal. At 1:20 PM, I discussed with case with Dr. Dominguez, on-call cardiology. Patient has 2 troponin with delta changes <5. EKG appears to be slightly different compared to prior. At the present time patient does not have any active chest pain. Because of all these factors, Dr. Dominguez recommend starting patient on isosorbide mononitrate with close outpatient follow-up at this time for chest pain. I have discussed this extensively with patient and informed patient to come back to the emergency room should she have any severe chest pain, palpitation, lightheadedness, or any new concerning complaints. Patient agrees with close follow-up with outpatient cardiology and tells me that she will take her isosorbide mononitrate. Rx isosorbide mononitrite PRN chest pain Disposition: Discharge. Patient counseled regarding diagnostic impression, treatment plan. Patient given ED strict return precautions to return for continuation, worsening, or development of new symptoms. Instructed to f/u w/ Cardiology regarding symptoms today. Patient verbalized understanding. Lab Data : 09/02/21 11:20 09/02/21 11:20 Radiology Impressions Chest X-Ray 09/02/21 11:00 IMPRESSION: No acute findings. Laboratory Results WBC 10.7 10^3/uL (4.0-10.0) H 09/02/21 11:20 RBC 4.07 10^6/uL (4.1-5.3) L 09/02/21 11:20 Hgb 11.2 g/dL (11.5-15.3) L 09/02/21 11:20 Hct 35.7 % (37.0-47.0) L 09/02/21 11:20 MCV 87.7 fl (81-99) 09/02/21 11:20 MCH 27.5 pg (28.0-34.0) L 09/02/21 11:20 MCHC 31.4 g/dL (30.0-36.0) D 09/02/21 11:20 RDW 14.4 % (12.1-15.1) 09/02/21 11:20 Plt Count 316 10^3/cmm (130-400) 09/02/21 11:20 MPV 10.7 fL (7.4-10.4) H 09/02/21 11:20 Neut % (Auto) 71.4 % 09/02/21 11:20 Lymph % (Auto) 15.1 % 09/02/21 11:20 [place] % (Auto) 6.8 % 09/02/21 11:20 Eos % (Auto) 5.3 % 09/02/21 11:20 Baso % (Auto) 0.9 % 09/02/21 11:20 Neut # (Auto) 7.61 10^3/uL (1.8-7.7) 09/02/21 11:20 Lymph # (Auto) 1.6 10^3/uL (0.8-4.8) 09/02/21 11:20 [place] # (Auto) 0.7 10^3/uL (0.2-0.9) 09/02/21 11:20 Eos # (Auto) 0.6 10^3/uL (0.0-0.8) 09/02/21 11:20 Baso # (Auto) 0.1 10^3/uL (0.0-0.1) 09/02/21 11:20 Nucleated RBC % (auto) 0 % 09/02/21 11:20 Nucleated RBCs # 0.0 /100WBC 09/02/21 11:20 PT 13.10 SECONDS (12.1-14.9) 09/02/21 11:20 INR 0.96 (0.8-1.2) 09/02/21 11:20 Sodium 136 mmol/L (136-145) 09/02/21 11:20 Potassium 4.5 mmol/L (3.5-5.1) 09/02/21 11:20 Chloride 101 mmol/L (98-107) 09/02/21 11:20 Carbon Dioxide 25 mmol/L (22-29) 09/02/21 11:20 Anion Gap 14.5 (5-19) 09/02/21 11:20 BUN 23 mg/dL (8-23) 09/02/21 11:20 Creatinine 1.1 mg/dL (0.5-0.9) H 09/02/21 11:20 GFR Calculation 49.7 mL/min (90-130) L 09/02/21 11:20 Glucose 109 mg/dL (65-115) 09/02/21 11:20 Calculated Osmolality 286 mOsm/kg (285-295) 09/02/21 11:20 Calcium 8.6 mg/dL (8.5-10.5) 09/02/21 11:20 Total Bilirubin 0.3 mg/dL (0.15-1.2) 09/02/21 11:20 AST 13 U/L (0-32) 09/02/21 11:20 ALT 15 U/L (0-33) 09/02/21 11:20 Alkaline Phosphatase 71 IU/L (35-105) 09/02/21 11:20 Troponin T Baseline 15 ng/L (0-10) H 09/02/21 11:20 Troponin T 120 Minute 15.33 ng/L (0-10) H 09/02/21 12:43 Delta Troponin T 0.33 ABS# (0-10) 09/02/21 12:43 Total Protein 6.9 g/dL (6.6-8.7) 09/02/21 11:20 Albumin 4.4 g/dL (3.5-5.2) 09/02/21 11:20 Globulin 2.5 g/dL (1.3-4.6) 09/02/21 11:20 Imaging Data Other Imaging: Radiologist's impression: [address] [address] XRay Report Signed Patient: Alicaj Flaherty Unit #: [id number] : 1955 Age/Sex: 65 / F ADM Date: 09/02/21 Loc: ER Room/Bed: Attending Dr: Ordering Provider/Ordering MD: Delores Mccarthy Sr, [facility]- Date of Service: 09/02/21 Procedure(s): XR chest 1V portable [id number] Accession Number(s): [id number] Report Number: [id number] PROCEDURE INFORMATION: Exam: XR Chest Exam date and time: 09/02/2021 11:18 AM Age: 65 years old Clinical indication: Pain; Angina pectoris; Additional info: Cp TECHNIQUE: Imaging protocol: XR of the chest. Views: 1 view. COMPARISON: CR XR chest 2V* [id number] 04/27/2021 10:47 AM FINDINGS: Lungs: Unremarkable. No consolidation. Pleural spaces: Unremarkable. No pleural effusion. No pneumothorax. Heart/Mediastinum: Unremarkable. No cardiomegaly. Bones/joints: Unremarkable. XR/XR chest 1V portable [id number] IMPRESSION: No acute findings. ? Dictated By: Nba Alford Signed By: Nba Alford Signed Date/Time: 09/02/21 1158 DD/ 1118 Discharge Plan Discharge Patient Disposition: Home Clinical Impression: Chest pain Condition: Stable Prescriptions: New isosorbide mononitrate 30 mg tablet extended release 24 hr 30 mg PO DAILY PRN (Reason: chest pain) 20 Days Qty: 20 0RF No Action Estroven Menopause 400 mcg-40 mg- 40 mg-100 mg tablet 1 tab PO BEDTIME 0RF albuterol sulfate [ProAir HFA] 90 mcg/actuation HFA aerosol inhaler 2 puff inhalation QID PRN (Reason: shortness of breath or wheezing) Qty: 6.7 0RF albuterol sulfate 2.5 mg /3 mL (0.083 %) solution for nebulization 2.5 mg inhalation QID PRN (Reason: shortness of breath or wheezing) Qty: 75 0RF (DME) compressor, for nebulizer Device See Rx Instructions .Route Qty: 1 0RF Rx Instructions: As directed (DME) nebulizer accessories Kit See Rx Instructions .Route Qty: 1 0RF Rx Instructions: As directed Aspir-81 81 mg Tablet,Delayed Release (Dr/Ec) 81 mg PO QAM 0RF budesonide 0.5 mg/2 mL suspension for nebulization 0.5 mg inhalation BID PRN (Reason: Shortness Of Breath) 0RF Vitamin B-12 1 tab PO QAM 0RF amlodipine 10 mg tablet 10 mg PO BEDTIME 0RF diclofenac sodium 75 mg tablet,delayed release (DR/EC) 75 mg PO BID 0RF Lasix 20 mg tablet 20 mg PO QAM 0RF lisinopril 40 mg tablet 40 mg PO QAM 0RF metformin 500 mg tablet extended release 24 hr 500 mg PO BEDTIME 0RF rosuvastatin 5 mg tablet 5 mg PO BEDTIME 0RF Discharge Orders: Discharge ED (Routine); Ordered 09/02/21 Ordered By: Doretha Urban Referrals: Joelle Jones FNP-C [Primary Care Provider] - Discharge Diet: Advance as tolerated Discharge Activity: Increase activity as tolerated Patient Instructions: Chest Pain (ED) Activity Restrictions/Additional Instructions: Come back to the emergency room if your chest pain worsens, have any fever or chills, worsening shortness of breath, worsening exertional lightheadedness, or any new or concerning complaints. Our catalytic case operator will have you follow-up with Cardiology in the next few days. You would be expected to have a phone call with our catalytic case operator who will put you on the schedule. You can expect a call from us in the next 2-3 days. If you don't hear from us, call us back in the emergency room at [phone]. Sign Out Sign Out Data: Patient Sign Out occurred on 09/02/21 at 12:31. Patient's care was discussed, and care was transferred from to Doretha Urban MD. Coding Level of Care Code ED Abap Developer for Chg Fwd Exam Comprehensive
[2021-09-02 11:40] LABS: Basophils # 0.1 10^3/uL (0.0-0.1); Basophils % 0.9 %; Eosinophils # 0.6 10^3/uL (0.0-0.8); Eosinophils % 5.3 %; Hematocrit 35.7 % (37.0-47.0); Hemoglobin 11.2 g/dL (11.5-15.3); Lymphocytes # 1.6 10^3/uL (0.8-4.8); Lymphocytes % 15.1 %; Mean Corpuscular HGB Conc 31.4 g/dL (30.0-36.0); Mean Corpuscular Hemoglobin 27.5 pg (28.0-34.0); Mean Corpuscular Volume 87.7 fl (81-99); Mean Platelet Volume 10.7 fL (7.4-10.4); Monocytes # 0.7 10^3/uL (0.2-0.9); Monocytes % 6.8 %; Neutrophils # 7.61 10^3/uL (1.8-7.7); Neutrophils % 71.4 %; Nucleated Red Blood Cells % 0 %; Platelet Count 316 10^3/cmm (130-400); Red Blood Count 4.07 10^6/uL (4.1-5.3); Red Cell Distribution Width 14.4 % (12.1-15.1); White Blood Count 10.7 10^3/uL (4.0-10.0)
[2021-09-02 12:05] VITALS: BP 164/65; PULSE 67; RESP 15; O2SAT 96
[2021-09-02 12:06] LABS: Alanine Aminotransferase 15 U/L (0-33); Albumin Level 4.4 g/dL (3.5-5.2); Alkaline Phosphatase 71 IU/L (35-105); Anion Gap 14.5 (5-19); Aspartate Amino Transferase 13 U/L (0-32); Blood Urea Nitrogen 23 mg/dL (8-23); Calcium 8.6 mg/dL (8.5-10.5); Carbon Dioxide 25 mmol/L (22-29); Chloride 101 mmol/L (98-107); Globulin 2.5 g/dL (1.3-4.6); Glomerular Filtration Rate 49.7 mL/min (90-130); Glucose 109 mg/dL (65-115); Osmolality Calculated 286 mOsm/kg (285-295); Potassium 4.5 mmol/L (3.5-5.1); Sodium 136 mmol/L (136-145); Total Bilirubin 0.3 mg/dL (0.15-1.2); Total Protein 6.9 g/dL (6.6-8.7)
[2021-09-02 12:07] LABS: Troponin(5th) Baseline 15 ng/L (0-10)
[2021-09-02 12:16] LABS: INR 0.96 (0.8-1.2)
--- NOTE | 2021-09-02 13:00 | ECG_ITS ---
[facility] Test Date: 2021-09-02 Pat Name: Alicja Flaherty Department: Room: Gender: Female Patient Care Representative: : 1955 Requested By: Govind Mccarthy Order Number: [id number] Lili MD: Edith Mcdaniels M.D. Measurements Intervals [place] Rate: 56 P: 81 IA: 160 QRS: -58 QRSD: 124 T: 76 QT: 435 QTc: 422 Interpretive Statements SINUS BRADYCARDIA WITH SINUS ARRHYTHMIA LEFT ANTERIOR FASCICULAR BLOCK [QRS AXIS <= -45, QR IN I, RS IN II] Compared to ECG 09/02/2021 10:51:19 Sinus rhythm no longer present Electronically Signed On 09-02-2021 20:46:29 CDT by Edith Mcdaniels M.D. [id number]
[2021-09-02 13:19] LABS: Troponin 5 2HR 15.33 ng/L (0-10)
[2021-09-02 13:21] LABS: Troponin 5 2HR Delta 0.33 ABS# (0-10)
[2021-09-02 14:02] VITALS: BP 124/78; PULSE 67; RESP 17; TEMP 36.4; O2SAT 95
[2021-09-02 14:03] VITALS: BP 124/78; PULSE 67; RESP 17; TEMP 36.4; O2SAT 95
--- NOTE | 2021-09-05 14:38 | DCPLANNER ---
Addendum entered by Nighat Covington 12/28/21 11:26: Patient had a follow up appointment scheduled for 11.02.[address] Mcdaniels at [facility] - patient did attend appointment. Addendum entered by Nighat Covington 09/08/21 10:36: Patient has a follow up appointment scheduled for Tuesday, November 02, 2021 at 1:[address] Mcdaniels at [facility]. Clinic will call patient with appointment information. Original Note: manager research development had message to schedule a follow up appointment for patient with heart care. manager research development sent patients information to the front office staff at [facility]. Patients information will be printed and reviewed. Clinic will call patient with appointment information.
== END 2021-09-02 14:00 | disposition home or self-care (01) ==
PROVIDERS: Nurse Practitioner Family; Emergency Provider Emergency Medicine; PCP Nurse Practitioner Family
DX: R07.9 Chest pain, unspecified (principal); I10 Essential (primary) hypertension; E11.9 Type 2 diabetes mellitus without complications; Z87.891 Personal history of nicotine dependence; Z82.49 Family history of ischemic heart disease and other diseases of the circulatory system; Z79.82 Long term (current) use of aspirin; Z79.84 Long term (current) use of oral hypoglycemic drugs
CPT/HCPCS: 71045; 80053; 84484; 85025; 85610; 93005; 99283

== ENCOUNTER → 2021-09-21 13:16 | Outpatient (BNVA) | payer MEDICARE, OTHER, SELFPAY | PROVIDERS: PCP Nurse Practitioner Family; Visit Provider Nurse Practitioner | DX: M16.11 Unilateral primary osteoarthritis, right hip (principal); M25.551 Pain in right hip | CPT/HCPCS: 73502 ==

== ENCOUNTER 2021-10-25 20:00 | Outpatient (CLI) | payer MEDICARE, OTHER, SELFPAY | END 2021-10-25 20:01 | disposition home or self-care (01) | LOC: SLEEP 10-26 05:02 | PROVIDERS: PCP Nurse Practitioner Family; Visit Provider Nurse Practitioner Family | DX: G47.33 Obstructive sleep apnea (adult) (pediatric) (principal) | CPT/HCPCS: 95810 ==

== ENCOUNTER → 2021-11-02 12:39 | Outpatient (BNVA) | payer MEDICARE, OTHER, SELFPAY | PROVIDERS: PCP Nurse Practitioner Family; Visit Provider Internal Medicine Cardiovascular Disease | DX: R07.9 Chest pain, unspecified (principal); I10 Essential (primary) hypertension; E78.2 Mixed hyperlipidemia; E11.9 Type 2 diabetes mellitus without complications; M19.079 Primary osteoarthritis, unspecified ankle and foot; Z87.891 Personal history of nicotine dependence | CPT/HCPCS: 80053; 80061; 84443; 99204 ==

== ENCOUNTER 2021-11-15 20:00 | Outpatient (CLI) | payer MEDICARE, OTHER, SELFPAY | END 2021-11-15 20:01 | disposition home or self-care (01) | LOC: SLEEP 11-16 06:24 | PROVIDERS: PCP Nurse Practitioner Family; Visit Provider Nurse Practitioner Family | DX: G47.33 Obstructive sleep apnea (adult) (pediatric) (principal) | CPT/HCPCS: 95811 ==

== ENCOUNTER → 2022-02-01 08:34 | Outpatient (BNVA) | payer MEDICARE, OTHER, SELFPAY | PROVIDERS: PCP Nurse Practitioner Family; Visit Provider Nurse Practitioner Family | DX: J44.9 Chronic obstructive pulmonary disease, unspecified (principal); I10 Essential (primary) hypertension; E11.9 Type 2 diabetes mellitus without complications; M25.50 Pain in unspecified joint | CPT/HCPCS: 80053; 80061; 83036; 83540; 84443; 85025 ==

== ENCOUNTER 2022-02-10 13:34 | Outpatient (CLI) | payer MEDICARE, OTHER, SELFPAY ==
--- NOTE | 2022-02-10 13:41 | MM_ITS ---
WS: [id number] BILATERAL 3D TOMOSYNTHESIS DIGITAL SCREENING MAMMOGRAPHY WITH CAD CLINICAL INFORMATION: SCREENING HISTORY: Screening mammogram. No current complaints. COMPARISON: February 03, 2021 TECHNIQUE: Bilateral CC and MLO views. FINDINGS: Scattered fibroglandular densities bilaterally. No suspicious focal mass, asymmetry, calcifications, or architectural distortion. No evidence of malignancy. Punctate calcifications LEFT breast. MM/[place] [id number] IMPRESSION: BI-RADS: 2-Benign FOLLOW UP: 1 Year Follow-up Recommend return to annual screening mammography.
== END 2022-02-10 13:35 | disposition home or self-care (01) ==
LOC: RAD 13:38
PROVIDERS: PCP Nurse Practitioner Family; Visit Provider Nurse Practitioner Family
DX: Z12.31 Encounter for screening mammogram for malignant neoplasm of breast (principal)
CPT/HCPCS: 77063; 77067

== ENCOUNTER → 2022-02-28 15:12 | Outpatient (BNVA) | payer MEDICARE, OTHER, SELFPAY | PROVIDERS: PCP Nurse Practitioner Family; Visit Provider Internal Medicine Cardiovascular Disease | DX: R07.9 Chest pain, unspecified (principal); I11.0 Hypertensive heart disease with heart failure; I50.32 Chronic diastolic (congestive) heart failure; Z87.891 Personal history of nicotine dependence | CPT/HCPCS: 99214 ==

== ENCOUNTER → 2022-05-03 08:50 | Outpatient (BNVA) | payer MEDICARE, OTHER, SELFPAY | PROVIDERS: PCP Nurse Practitioner Family; Visit Provider Nurse Practitioner Family | DX: E11.9 Type 2 diabetes mellitus without complications (principal); G47.30 Sleep apnea, unspecified | CPT/HCPCS: 80053; 80061; 83036; 84443; 85025 ==

== ENCOUNTER → 2022-05-17 08:56 | Outpatient (BNVA) | payer MEDICARE, OTHER, SELFPAY | PROVIDERS: PCP Nurse Practitioner Family; Visit Provider Nurse Practitioner Family | DX: E61.1 Iron deficiency (principal) | CPT/HCPCS: 83540; 85025 ==

== ENCOUNTER 2022-05-25 12:53 | Emergency (ER) | payer MEDICARE, OTHER, SELFPAY ==
[2022-05-25 12:58] VITALS: BP 145/69; PULSE 69; RESP 20; TEMP 36.2; O2SAT 96
--- NOTE | 2022-05-25 13:28 | XRR_ITS ---
PROCEDURE INFORMATION: Exam: XR Chest Exam date and time: 05/25/2022 1:34 PM Age: 66 years old Clinical indication: Shortness of breath; Additional info: SOB TECHNIQUE: Imaging protocol: Radiologic exam of the chest. Views: 1 view. COMPARISON: CR XR chest 1V portable [id number] 09/02/2021 11:18 AM FINDINGS: Lungs: Unremarkable. No consolidation. Pleural spaces: Unremarkable. No pleural effusion. No pneumothorax. Heart/Mediastinum: Unremarkable. No cardiomegaly. Bones/joints: Unremarkable. XR/XR chest 1V portable [id number] IMPRESSION: No acute findings.
[2022-05-25 13:54] LABS: Basophils # 0.1 10^3/uL (0.0-0.1); Basophils % 0.9 %; Eosinophils # 0.5 10^3/uL (0.0-0.8); Eosinophils % 3.7 %; Hematocrit 34.2 % (37.0-47.0); Hemoglobin 10.1 g/dL (11.5-15.3); Lymphocytes # 1.9 10^3/uL (0.8-4.8); Lymphocytes % 13.9 %; Mean Corpuscular HGB Conc 29.5 g/dL (30.0-36.0); Mean Corpuscular Hemoglobin 25.8 pg (28.0-34.0); Mean Corpuscular Volume 87.2 fl (81-99); Mean Platelet Volume 10.1 fL (7.4-10.4); Monocytes # 1.1 10^3/uL (0.2-0.9); Monocytes % 7.6 %; Neutrophils # 10.17 10^3/uL (1.8-7.7); Neutrophils % 73.4 %; Nucleated Red Blood Cells % 0 %; Platelet Count 340 10^3/cmm (130-400); Red Blood Count 3.92 10^6/uL (4.1-5.3); Red Cell Distribution Width 15.3 % (12.1-15.1); White Blood Count 13.9 10^3/uL (4.0-10.0)
[2022-05-25 14:26] LABS: Alanine Aminotransferase 17 U/L (0-33); Albumin Level 4.2 g/dL (3.5-5.2); Alkaline Phosphatase 89 U/L (35-105); Anion Gap 16.9 (5-19); Aspartate Amino Transferase 19 U/L (0-32); Blood Urea Nitrogen 25 mg/dL (8-23); Calcium 9.1 mg/dL (8.5-10.5); Carbon Dioxide 23 mmol/L (22-29); Chloride 102 mmol/L (98-107); Glomerular Filtration Rate 37.5 mL/min (90-130); Glucose 129 mg/dL (65-115); NT Pro B Type Natriuretic Pept 547 pg/mL (0-125); Osmolality Calculated 290 mOsm/kg (285-295); Potassium 4.9 mmol/L (3.5-5.1); Sodium 137 mmol/L (136-145); Total Bilirubin 0.3 mg/dL (0.15-1.2); Total Protein 7.2 g/dL (6.6-8.7)
[2022-05-25 15:03] VITALS: BP 121/88; PULSE 62; O2SAT 96
[2022-05-25 15:35] VITALS: PULSE 66; O2SAT 95
--- NOTE | 2022-05-25 16:49 | ED_ITS ---
HPI - SOB/Dyspnea General: Chief Complaint: Shortness of Breath/Dyspnea Stated Complaint: SOB, abnormal labs Time Seen by Provider: 05/25/22 15:32 Source: patient Mode of arrival: ambulatory History of Present Illness: HPI Narrative: 66-year-old female presents emergency room complaining of weakness shortness of breath headache. She has had this intermittently for the last couple of weeks. She had some mild chest discomfort as well as not was sitting exacerbates or relieves it. No fever sweats chills shortness of breath no abdominal pain no dysuria urgency or frequency. MD elicited complaint: shortness of breath and cough Severity: mild Exacerbating factors: nothing Relieving factors: nothing Associated symptoms: Reports chest congestion and cough; Deny abdominal pain, chest pain, diaphoresis, dizziness, extremity pain, fever(s), hemoptysis, lightheadedness, myalgias, nausea, orthopnea, palpitations, paresthesias, polydipsia, polyuria, sense of impending doom, syncope or vomiting Treatment prior to arrival: none Review of Systems Const: Denies: fever(s), chills or diaphoresis ENMT: Denies: throat pain, ear or mastoid pain, nasal discharge or nasal congestion Card: Denies: chest pain, palpitations, lightheadedness, syncope or orthopnea Resp: Reports: chest congestion; Denies: hemoptysis GI: Denies: abdominal pain, nausea or vomiting : Denies: flank pain, difficulty voiding, dysuria, urinary frequency or urinary urgency Musc: Denies: extremity pain Skin/Breast: Denies: rash or pruritus Neuro: Denies: dizziness Endo: Denies: polyuria or polydipsia PFS ED PFSH: Medical History Arthralgia CHF (congestive heart failure) CHF exacerbation Essential hypertension Sleep apnea Surgical History History of appendectomy History of bilateral cataract extraction History of hysterectomy History of tonsillectomy History of tubal ligation Family History Mother CAD (coronary artery disease) Diabetes Hypertension Sister CAD (coronary artery disease) Cancer Diabetes Social History (Reviewed 01/31/23 @ 17:18 by MADDIE Macdonald Smoking and tobacco status: former smoker Quit status (tobacco): has quit using tobacco Year quit tobacco: 2002 Second hand smoke exposure: No Alcohol intake: never Household members: spouse Marital status: History of recent travel: No Physical Exam Const: GENERAL APPEARANCE: cooperative and comfortable ORIENTATION/CON SCIOUSNESS: Yes awake, Yes oriented to person, Yes oriented to place and Yes oriented to time HENMT: COMMON NORMALS: normocephalic, atraumatic and hearing grossly normal bilaterally HEAD & SCALP: normocephalic and atraumatic Resp: COMMON NORMALS: normal respiratory effort, No retractions, No use of accessory muscles and clear to auscultation bilaterally AUSCULTATION: clear to auscultation bilaterally Cardio: COMMON NORMALS: regular rate, regular rhythm and No murmurs present (Cardio) RATE: regular rate RHYTHM: regular rhythm GI: COMMON NORMALS: Soft to palpation and No hepatosplenomegaly present AUSCULTATION: Yes normoactive bowel sounds PALPATION: Yes Soft to palpation, No Tenderness to palpation present (GI), No Guarding due to palpation present (GI) and Yes No hepatosplenomegaly present Extremity: COMMON NORMALS: normal to inspection, capillary refill normal, no clubbing, cyanosis or edema, no calf tenderness and no pedal edema Neuro: SENSORIUM/ORIENTATION: Yes oriented to person, Yes oriented to place and Yes oriented to time Skin: COMMON NORMALS: no rashes or lesions noted GENERAL SKIN EXAM: no rash es or lesions noted Course Vital Signs: Vital signs: Vital Signs Temperature 97.2 F L 05/25/22 12:58 Pulse Rate 60 05/25/22 16:57 Respiratory Rate 19 H 05/25/22 16:57 Blood Pressure 160/67 05/25/22 16:57 Pulse Oximetry 93 05/25/22 16:57 Oxygen Delivery Me thod 05/25/22 15:35 MDM - SOB/Dyspnea Medical Decision Making Labs imaging and EKG reviewed as found in the chart troponins were unremarkable EKG did not show any acute ST changes no signs of pneumonia on her chest x-ray. She does have some mild anemia is actually somewhat improved. We will discharge patient home follow-up with her primary care doctor. She did have a low iron at 32 that can be followed up with primary care or referred to oncology for infusions if felt appropriate. Medical Records I reviewed the patient's medical records. Lab Data I reviewed the patient's lab results. 05/25/22 13:48 05/25/22 13:48 Labs/Radiology: Radiology Impressions Chest X-Ray 05/25/22 13:28 IMPRESSION: No acute findings. Laboratory Results WBC 13.9 10^3/uL (4.0-10.0) H 05/25/22 13:48 RBC 3.92 10^6/uL (4.1-5.3) L 05/25/22 13:48 Hgb 10.1 g/dL (11.5-15.3) L 05/25/22 13:48 Hct 34.2 % (37.0-47.0) L 05/25/22 13:48 MCV 87.2 fl (81-99) 05/25/22 13:48 MCH 25.8 pg (28.0-34.0) L 05/25/22 13:48 MCHC 29.5 g/dL (30.0-36.0) L 05/25/22 13:48 RDW 15.3 % (12.1-15.1) H 05/25/22 13:48 Plt Count 340 10^3/cmm (130-400) 05/25/22 13:48 MPV 10.1 fL (7.4-10.4) 05/25/22 13:48 Neut % (Auto) 73.4 % 05/25/22 13:48 Lymph % (Auto) 13.9 % 05/25/22 13:48 [place] % (Auto) 7.6 % 05/25/22 13:48 Eos % (Auto) 3.7 % 05/25/22 13:48 Baso % (Auto) 0.9 % 05/25/22 13:48 Neut # (Auto) 10.17 10^3/uL (1.8-7.7) H 05/25/22 13:48 Lymph # (Auto) 1.9 10^3/uL (0.8-4.8) 05/25/22 13:48 [place] # (Auto) 1.1 10^3/uL (0.2-0.9) H 05/25/22 13:48 Eos # (Auto) 0.5 10^3/uL (0.0-0.8) 05/25/22 13:48 Baso # (Auto) 0.1 10^3/uL (0.0-0.1) 05/25/22 13:48 Nucleated RBC % (auto) 0 % 05/25/22 13:48 Nucleated RBCs # 0.0 /100WBC 05/25/22 13:48 Sodium 137 mmol/L (136-145) 05/25/22 13:48 Potassium 4.9 mmol/L (3.5-5.1) 05/25/22 13:48 Chloride 102 mmol/L (98-107) 05/25/22 13:48 Carbon Dioxide 23 mmol/L (22-29) 05/25/22 13:48 Anion Gap 16.9 (5-19) 05/25/22 13:48 BUN 25 mg/dL (8-23) H 05/25/22 13:48 Creatinine 1.4 mg/dL (0.5-0.9) H 05/25/22 13:48 GFR Calculation 37.5 mL/min (90-130) L 05/25/22 13:48 Glucose 129 mg/dL (65-115) H 05/25/22 13:48 Calculated Osmolality 290 mOsm/kg (285-295) 05/25/22 13:48 Calcium 9.1 mg/dL (8.5-10.5) 05/25/22 13:48 Total Bilirubin 0.3 mg/dL (0.15-1.2) 05/25/22 13:48 AST 19 U/L (0-32) 05/25/22 13:48 ALT 17 U/L (0-33) 05/25/22 13:48 Alkaline Phosphatase 89 U/L (35-105) 05/25/22 13:48 NT-Pro-B Natriuret Pep 547 pg/mL (0-125) H 05/25/22 13:48 Total Protein 7.2 g/dL (6.6-8.7) 05/25/22 13:48 Albumin 4.2 g/dL (3.5-5.2) 05/25/22 13:48 Globulin 3.0 g/dL (1.3-4.6) 05/25/22 13:48 Discharge Plan Discharge Patient Disposition: Home Clinical Impression: Iron (Fe) deficiency anemia, HINTON (dyspnea on exertion) Condition: Stable Prescriptions: No Action Estroven Menopause 400 mcg-40 mg- 40 mg-100 mg tablet 1 tab PO BEDTIME albuterol sulfate [ProAir HFA] 90 mcg/actuation HFA aerosol inhaler 2 puff inhalation QID PRN (Reason: shortness of breath or wheezing) Qty: 6.7 0RF nitroglycerin 0.4 mg tablet, sublingual 0.4 mg sublingual Q5M PRN (Reason: chest pain) Qty: 30 2RF Rx Instructions: do not exceed 3 doses per episode fluticasone propion-salmeterol [Advair Diskus] 250-50 mcg/dose blister with device 1 inh inhalation BID Qty: 60 5RF Lasix 40 mg tablet 40 mg PO QAM Qty: 90 1RF ferrous gluconate 324 mg (38 mg iron) tablet 324 mg PO BID 90 Days Qty: 180 1RF amlodipine 10 mg tablet 10 mg PO BEDTIME Qty: 90 1RF diclofenac sodium 75 mg tablet,delayed release (DR/EC) 75 mg PO BID Qty: 90 1RF lisinopril 40 mg tablet 40 mg PO QAM Qty: 90 1RF metformin 500 mg tablet extended release 24 hr 500 mg PO BEDTIME Qty: 90 1RF rosuvastatin 5 mg tablet 5 mg PO BEDTIME Qty: 90 1RF isosorbide mononitrate 30 mg tablet extended release 24 hr 30 mg PO DAILY Qty: 90 1RF (DME) CPAP and supplies See Rx Instructions .Route .MEDSUPPLY Qty: 1 0RF Rx Instructions: lifetime, 99+ (DME) bipap auto titrating machine See Rx Instructions .Route .MEDSUPPLY Qty: 1 0RF Rx Instructions: As directed 99 months auto titrating bipap () with supplies albuterol sulfate 2.5 mg /3 mL (0.083 %) solution for nebulization 2.5 mg inhalation QID PRN (Reason: shortness of breath or wheezing) Qty: 75 1RF Vitamin B-12 1 tab PO QAM Discharge Orders: Discharge ED (Routine); Ordered 05/25/22 Ordered By: Remberto Sheffield Referrals: Joelle Jones FNP-C [Primary Care Provider] - Patient Instructions: Opioid Safety, Pain Management Activity Restrictions/Additional Instructions: Case management make arrangements for Lexiscan sestamibi stress test. Dyspnea on exertion. Creatinine deficiency anemia recommend that you follow-up with your your primary animal caretaker to reevaluate. You may benefit from iron infusions. Coding Level of Care Code ED Tip Inserter for Ruperto Zepeda
[2022-05-25 16:57] VITALS: BP 160/67; PULSE 60; RESP 19; O2SAT 93
== END 2022-05-25 16:59 | disposition home or self-care (01) ==
PROVIDERS: Emergency Medicine; Emergency Provider Family Medicine; PCP Nurse Practitioner Family
DX: D50.9 Iron deficiency anemia, unspecified (principal); R06.00 Dyspnea, unspecified; Z79.84 Long term (current) use of oral hypoglycemic drugs; I11.0 Hypertensive heart disease with heart failure; I50.9 Heart failure, unspecified; Z87.891 Personal history of nicotine dependence
CPT/HCPCS: 71045; 80053; 83880; 85025; 99285

== ENCOUNTER → 2022-06-14 08:12 | Outpatient (BNVA) | payer MEDICARE, OTHER, SELFPAY | PROVIDERS: PCP Nurse Practitioner Family; Visit Provider Nurse Practitioner Family | DX: D64.9 Anemia, unspecified (principal); E11.9 Type 2 diabetes mellitus without complications | CPT/HCPCS: 80053; 85025 ==

== ENCOUNTER 2022-06-30 07:36 | Oncology outpatient (recurring) (ONCR) | payer MEDICARE, OTHER, SELFPAY ==
[2022-06-30 09:24] LABS: Basophils # 0.1 10^3/uL (0.0-0.1); Basophils % 0.9 %; Eosinophils # 0.5 10^3/uL (0.0-0.8); Eosinophils % 4.4 %; Hematocrit 32.3 % (37.0-47.0); Hemoglobin 9.8 g/dL (11.5-15.3); Lymphocytes # 1.8 10^3/uL (0.8-4.8); Lymphocytes % 16.6 %; Mean Corpuscular HGB Conc 30.3 g/dL (30.0-36.0); Mean Corpuscular Hemoglobin 27.1 pg (28.0-34.0); Mean Corpuscular Volume 89.2 fl (81-99); Mean Platelet Volume 10.5 fL (7.4-10.4); Monocytes # 0.8 10^3/uL (0.2-0.9); Monocytes % 7.4 %; Neutrophils # 7.43 10^3/uL (1.8-7.7); Neutrophils % 70.2 %; Nucleated Red Blood Cells % 0 %; Platelet Count 281 10^3/cmm (130-400); Red Blood Count 3.62 10^6/uL (4.1-5.3); Red Cell Distribution Width 15.2 % (12.1-15.1); White Blood Count 10.6 10^3/uL (4.0-10.0)
[2022-06-30 09:25] LABS: Reticulocyte % 1.6 % (0.5-2.0)
[2022-06-30 09:42] LABS: Erythrocyte Sedimentation Rate 34 mm/hr (0-15)
[2022-06-30 09:48] LABS: Alanine Aminotransferase 17 U/L (0-33); Albumin Level 4.1 g/dL (3.5-5.2); Alkaline Phosphatase 77 U/L (35-105); Anion Gap 16.4 (5-19); Aspartate Amino Transferase 17 U/L (0-32); Blood Urea Nitrogen 33 mg/dL (8-23); C Reactive Protein 7.2 mg/L (0.0-4.9); Calcium 9.6 mg/dL (8.5-10.5); Carbon Dioxide 24 mmol/L (22-29); Chloride 105 mmol/L (98-107); Ferritin 109 ng/mL (15-150); Glomerular Filtration Rate 32.2 mL/min (90-130); Glucose 123 mg/dL (65-115); Iron 36 ug/dL (37-145); Lactate Dehydrogenase 239 U/L (135-214); Osmolality Calculated 301 mOsm/kg (285-295); Percent Saturation 11.8 % (20-50); Potassium 4.4 mmol/L (3.5-5.1); Sodium 141 mmol/L (136-145); Total Bilirubin 0.4 mg/dL (0.15-1.2); Total Iron Binding Capacity 304 mcg/dl; Total Protein 7.1 g/dL (6.6-8.7); Unsaturated Iron Binding 268 ug/dL (112-347)
[2022-06-30 09:58] LABS: Vitamin B12 1620 pg/mL (232-1245)
[2022-06-30 10:38] LABS: LAB Peripheral Smear Sent for Review
[2022-06-30 10:39] LABS: Folate Level > 20.0 ng/mL (4.8-37.3)
[2022-07-03 11:34] LABS: KAPPA LIGHT CHAIN, FREE, SERUM 21.1 mg/L (3.3-19.4); KAPPA/LAMBDA LIGHT CHAINS FREE 0.31 (0.26-1.65); LAMBDA LIGHT CHAIN, FREE, SERU 68.3 mg/L (5.7-26.3)
[2022-07-03 14:25] LABS: PROTEIN, TOTAL 6.7 g/dL (6.1-8.1)
[2022-07-03 15:49] LABS: ABNORMAL PROTEIN BAND 1 0.7 g/dL (NONE DETECTED); ALBUMIN 3.8 g/dL (3.8-4.8); ALPHA 1 GLOBULIN 0.4 g/dL (0.2-0.3); ALPHA 2 GLOBULIN 0.8 g/dL (0.5-0.9); BETA 1 GLOBULIN 0.4 g/dL (0.4-0.6); BETA 2 GLOBULIN 0.3 g/dL (0.2-0.5)
== END 2022-07-04 23:59 | disposition home or self-care (01) ==
LOC: ONCMED 07:37
PROVIDERS: PCP Nurse Practitioner Family; Visit Provider Internal Medicine Medical Oncology
DX: D64.9 Anemia, unspecified (principal); R06.02 Shortness of breath; R53.83 Other fatigue
CPT/HCPCS: 36415; 80053; 82607; 82728; 82746; 83010; 83540; 83550; 83615; 83883; 84155; 84165; 85025; 85045; 85651; 86140; 99204

== ENCOUNTER 2022-07-20 15:00 | Oncology outpatient (recurring) (ONCR) | payer MEDICARE, OTHER, SELFPAY ==
[2022-07-13] MEDS: ferric carboxy (IVPB) 750 MG in sodium chloride 0.9% (100 ml) 100 ML 345 MG IV (14:37)
[2022-07-13] MEDS: sodium chloride 0.9% 250 ML 100 ML IV (14:37)
[2022-07-13 15:10] VITALS: BP 145/67; PULSE 66; TEMP 36.6; O2SAT 93
[2022-07-20] MEDS: sodium chloride 0.9% 250 ML 100 ML IV (14:57)
[2022-07-20] MEDS: ferric carboxy (IVPB) 750 MG in sodium chloride 0.9% (100 ml) 100 ML 345 MG IV (15:01)
[2022-07-20 15:44] VITALS: BP 140/59; PULSE 63; TEMP 36.4; O2SAT 95
== END 2022-08-04 23:59 | disposition home or self-care (01) ==
PROVIDERS: PCP Nurse Practitioner Family; Visit Provider Internal Medicine Medical Oncology
DX: D50.8 Other iron deficiency anemias (principal); Z79.899 Other long term (current) drug therapy
CPT/HCPCS: 82274; 96365; J1439; J7050

== ENCOUNTER 2022-08-23 08:08 | Outpatient (CLI) | payer MEDICARE, OTHER, SELFPAY ==
--- NOTE | 2022-08-23 13:00 | US_ITS ---
WS: [id number] RENAL ULTRASOUND HISTORY: Chronic Kidney disease, worsening COMPARISON: None available. TECHNIQUE: 2-D and color Doppler imaging of the kidney submitted. Technically difficult exam due to body habitus. Right kidney: 10.5 cm x 4.9 cm x 5.8 cm. Cortex: 1.6 cm Normal echogenicity with no hydronephrosis or mass. Left kidney: 11.1 cm x 5.8 cm x 5.0 cm. Cortex: 1.9 cm Normal echogenicity with no hydronephrosis or mass. Aorta: Not visualized. Urinary Bladder: Distended but otherwise poorly visualized due to body habitus. US/US renal BI* [id number] IMPRESSION: Technically difficult evaluation of the kidneys and urinary bladder. No renal a bnormality identified.
== END 2022-08-23 08:09 | disposition home or self-care (01) ==
LOC: RAD 08:11
PROVIDERS: PCP Family Medicine; Visit Provider Family Medicine
DX: D63.1 Anemia in chronic kidney disease (principal); N18.9 Chronic kidney disease, unspecified
CPT/HCPCS: 76770

== ENCOUNTER 2022-08-29 15:51 | Oncology outpatient (recurring) (ONCR) | payer MEDICARE, OTHER, SELFPAY ==
[2022-08-23 09:03] LABS: Basophils # 0.1 10^3/uL (0.0-0.1); Basophils % 0.7 %; Eosinophils # 0.4 10^3/uL (0.0-0.8); Eosinophils % 3.9 %; Hematocrit 33.4 % (37.0-47.0); Hemoglobin 10.1 g/dL (11.5-15.3); Lymphocytes # 1.4 10^3/uL (0.8-4.8); Lymphocytes % 12.6 %; Mean Corpuscular HGB Conc 30.2 g/dL (30.0-36.0); Mean Corpuscular Hemoglobin 27.6 pg (28.0-34.0); Mean Corpuscular Volume 91.3 fl (81-99); Mean Platelet Volume 10.8 fL (7.4-10.4); Monocytes # 0.8 10^3/uL (0.2-0.9); Monocytes % 7.4 %; Neutrophils # 8.02 10^3/uL (1.8-7.7); Neutrophils % 74.6 %; Nucleated Red Blood Cells % 0 %; Platelet Count 247 10^3/cmm (130-400); Red Blood Count 3.66 10^6/uL (4.1-5.3); Red Cell Distribution Width 15.8 % (12.1-15.1); White Blood Count 10.8 10^3/uL (4.0-10.0)
[2022-08-23 09:17] LABS: Estmated Average Glucose 117; Hemoglobin A1C 5.7 % (4.0-6.0)
[2022-08-23 09:33] LABS: Alanine Aminotransferase 14 U/L (0-33); Alkaline Phosphatase 74 U/L (35-105); Aspartate Amino Transferase 17 U/L (0-32); Blood Urea Nitrogen 24 mg/dL (8-23); Calcium 8.6 mg/dL (8.5-10.5); Carbon Dioxide 25 mmol/L (22-29); Chloride 102 mmol/L (98-107); Ferritin 682 ng/mL (15-150); Globulin 2.7 g/dL (1.3-4.6); Glomerular Filtration Rate 40.9 mL/min (90-130); Glucose 155 mg/dL (65-115); Iron 52 ug/dL (37-145); Osmolality Calculated 297 mOsm/kg (285-295); Percent Saturation 19.3 % (20-50); Sodium 140 mmol/L (136-145); Total Bilirubin 0.4 mg/dL (0.15-1.2); Total Iron Binding Capacity 269 mcg/dl; Total Protein 6.7 g/dL (6.6-8.7); Unsaturated Iron Binding 217 ug/dL (112-347)
[2022-08-24 08:29] LABS: PROTEIN, TOTAL 6.3 g/dL (6.1-8.1)
[2022-08-24 10:33] LABS: KAPPA LIGHT CHAIN, FREE, SERUM 19.9 mg/L (3.3-19.4); KAPPA/LAMBDA LIGHT CHAINS FREE 0.34 (0.26-1.65); LAMBDA LIGHT CHAIN, FREE, SERU 59.4 mg/L (5.7-26.3)
[2022-08-24 15:38] LABS: ABNORMAL PROTEIN BAND 1 0.6 g/dL (NONE DETECTED); ALBUMIN 3.6 g/dL (3.8-4.8); ALPHA 1 GLOBULIN 0.4 g/dL (0.2-0.3); ALPHA 2 GLOBULIN 0.8 g/dL (0.5-0.9); BETA 1 GLOBULIN 0.4 g/dL (0.4-0.6); BETA 2 GLOBULIN 0.3 g/dL (0.2-0.5); GAMMA GLOBULIN 0.9 g/dL (0.8-1.7)
== END 2022-09-03 23:59 | disposition home or self-care (01) ==
PROVIDERS: PCP Family Medicine; Visit Provider Internal Medicine Medical Oncology
DX: D64.9 Anemia, unspecified (principal); R74.8 Abnormal levels of other serum enzymes; Z79.899 Other long term (current) drug therapy
CPT/HCPCS: 36415; 76770; 80053; 82728; 83036; 83540; 83550; 83883; 84155; 84165; 85025; 86334; 99214

== ENCOUNTER 2022-09-11 10:05 | Day surgery (SDC) | payer MEDICARE, OTHER, SELFPAY ==
[2022-09-07 12:26] VITALS: BMI 60.2
[2022-09-11 10:33] VITALS: BP 143/61; PULSE 69; RESP 18; TEMP 36.3; O2SAT 98
[2022-09-11] MEDS: sodium chloride 0.9% 1,000 ML 30 ML IV (10:33)
[2022-09-11 10:46] LABS: Glucose Point of Care 138 mg/dL (70-110)
[2022-09-11 10:54] LABS: Basophils # 0.1 10^3/uL (0.0-0.1); Basophils % 1.2 %; Eosinophils # 0.6 10^3/uL (0.0-0.8); Eosinophils % 5.2 %; Hemoglobin 10.7 g/dL (11.5-15.3); Lymphocytes # 1.9 10^3/uL (0.8-4.8); Lymphocytes % 17.4 %; Mean Corpuscular HGB Conc 30.6 g/dL (30.0-36.0); Mean Corpuscular Hemoglobin 27.6 pg (28.0-34.0); Mean Corpuscular Volume 90.2 fl (81-99); Mean Platelet Volume 10.5 fL (7.4-10.4); Monocytes # 0.9 10^3/uL (0.2-0.9); Monocytes % 8.5 %; Neutrophils # 7.15 10^3/uL (1.8-7.7); Nucleated Red Blood Cells % 0 %; Platelet Count 278 10^3/cmm (130-400); Red Blood Count 3.88 10^6/uL (4.1-5.3); Red Cell Distribution Width 15.1 % (12.1-15.1); White Blood Count 10.7 10^3/uL (4.0-10.0)
--- NOTE | 2022-09-11 12:02 | ANES.PREANE2 ---
Pre-Anesthetic Assessment Height/Weight: Height 1.6 m Weight 154.221 kg Temp Pulse Resp BP Pulse Ox O2 Del Method 97.3 F L 69 18 143/61 98 Room Air 09/11/22 10:33 09/11/22 10:33 09/11/22 10:33 09/11/22 10:33 09/11/22 10:33 09/11/22 10:33 Preop Diagnosis: Anemia Operation Date: 09/11/22 12:00 Proposed Procedures p Bone Marrow Biospy With Aspiration(Not Applicable) - Deepak Lopes MD Was Beta Bill taken within 24 hours: Yes Was Clonidine taken within 24 hours: N/A Last intake: Intake Last Liquid Date 09/10/22 Last Liquid Time 21:00 Last Solid Date 09/10/22 Last Solid Time 18:00 Social No alcohol and No tobacco Exam alert, oriented x 3, clear to auscultation bilaterally and regular rate & rhythm Airway Submandibular: within normal limits Cervical ROM: within normal limits Mallampati: Class III Dentition: false History/ROS No significant history except as noted and No significant complaints Pulmonary Chronic Obstructive Pulmonary Disease, Exertional Dyspnea and Sleep Apnea CV/HEM Hypertension Chronic Renal Insufficiency Hepatic None reported GI None reported Metabolic Diabetes Mellitus, Morbid Obesity and Thyroid Disease [facility] [place] None reported Anesthetic Plan ASA status: 3 Anesthesia: Anesthesia Evaluation and MAC Risk of > 500 ml blood loss (7ml/kg in children): No Medications/Allergies Home Medications Medication Instructions Recorded Confirmed Last Taken Type mvi,min-folic acid 400 mcg-black 1 tab PO BEDTIME 02/23/21 09/11/22 09/10/22 History coh 40 mg-isoflav 40 mg-jujube tablet (Estroven Menopause) albuterol sulfate 90 mcg/actuation 2 puff inhalation QID PRN 04/25/21 09/11/22 09/10/22 Rx aerosol inhaler (ProAir HFA) shortness of breath or wheezing #6.7 grams nitroglycerin 0.4 mg sublingual 0.4 mg sublingual Q5M PRN chest 09/05/21 09/11/22 Unknown Rx tablet pain #30 tabs CPAP and supplies #1 ea 11/02/21 09/11/22 Unknown Rx bipap auto titrating machine #1 ea 12/06/21 09/11/22 Unknown Rx albuterol sulfate 2.5 mg/3 mL 2.5 mg (3 mL) inhalation QID PRN 03/29/22 09/11/22 09/10/22 Rx (0.083 %) solution for nebulization shortness of breath or wheezing #75 mL fluticasone 250 mcg-salmeterol 50 1 inh inhalation BID #60 ea 04/10/22 09/11/22 09/10/22 Rx mcg/dose blistr powdr for inhalation (Advair Diskus) furosemide 40 mg tablet 40 mg PO QAM #90 tabs 04/10/22 09/11/22 09/10/22 Rx isosorbide mononitrate 30 mg 30 mg PO DAILY chest pain #90 tabs 04/10/22 09/11/22 09/10/22 Rx tablet,extended release 24 hr lisinopril 40 mg tablet 40 mg PO QAM #90 tabs 04/10/22 09/11/22 09/10/22 Rx rosuvastatin 5 mg tablet 5 mg PO BEDTIME #90 tabs 04/10/22 09/11/22 09/10/22 Rx amlodipine 5 mg tablet 5 mg PO DAILY 07/24/22 09/11/22 09/10/22 History metformin 850 mg tablet 850 mg PO DAILY 07/24/22 09/11/22 09/09/22 History acetaminophen 325 mg tablet 325 mg PO QID PRN Pain 08/29/22 09/11/22 09/10/22 History (Tylenol) turmeric 400 mg capsule 400 mg PO BID 08/29/22 09/11/22 09/10/22 History Allergies Allergy/AdvReac Type Severity Reaction Status Date / Time No Known Allergies Allergy Verified 09/11/22 10:23 Current Medications Generic Name Dose Route Start Last Admin Trade Name Freq PRN Reason Stop Dose Admin Sodium Chloride 1,000 mls @ 30 mls/hr 09/11/22 10:15 09/11/22 10:33 Sodium Chloride 0.9% IV 09/12/22 10:14 30 mls/hr .Q24H BETTY Administration PFSH Anesthesia Medical History Anemia CHF (congestive heart failure) Chronic kidney disease Degenerative arthritis Essential hypertension Hyperlipidemia Obstructive sleep apnea Type 2 diabetes mellitus Surgical History History of appendectomy History of bilateral cataract extraction History of cholecystectomy History of hysterectomy with bilateral oophorectomy History of tonsillectomy History of tubal ligation Family History Mother CAD (coronary artery disease) Diabetes Hypertension Sister CAD (coronary artery disease) Cancer Diabetes Father Suicide Social History Smoking and tobacco status: former smoker Quit status (tobacco): has quit using tobacco Year quit tobacco: 2002 Former quit date comment: Smoked from age 8 to 2002. Second hand smoke exposure: No Smoking risk assessment/counseling performed?: No Alcohol intake: never Desire information about alcohol rehabilitation?: No Counseling given: No Substance/Drug Use: never Desire information about substance/drug rehabilitation?: No Counseling given: No Adopted: No Caregiver/support person: No Lives independently: Yes Household members: spouse Marital status: Data Anesthesia 09/11/22 10:40 Short CBC 09/11/22 Range/Units 10:40 WBC 10.7 H (4.0-10.0) 10^3/uL Hgb 10.7 L (11.5-15.3) g/dL Hct 35.0 L (37.0-47.0) % MCV 90.2 (81-99) fl Plt Count 278 (130-400) 10^3/cmm Neut % (Auto) 67.0 % Neut # (Auto) 7.15 (1.8-7.7) 10^3/uL Cardiac Studies: Sestamibi Stress Test (Cardiology) 11/13/19
--- NOTE | 2022-09-11 12:11 | W.PM.OPSUD ---
Surgery/Procedure H&P Update DATE OF PROCEDURE: September 11, 2022 DATE H&P PERFORMED: 10/22/19 CHANGES TO PREVIOUS DOCUMENTATION: Patient seen and examined, no obvious changes or new symptoms since her last visit to the clinic PREOP DIAGNOSIS: Anemia PRIMARY INDICATION FOR PROCEDURE: Anemia and MGUS PLANNED PROCEDURE: Operation Date: 09/11/22 12:00 Proposed Procedures p Bone Marrow Biospy With Aspiration(Not Applicable) - Deepak Lopes MD
--- NOTE | 2022-09-11 12:38 | P.PCN_ITS ---
Bone Marrow Biopsy Bone Marrow Biopsy: I was consulted by [] office regarding bone marrow biopsy on [Alicja Flaherty]. Briefly, the patient is a [66] year old [Female] with [Anemia and MGUS]. In the Outpatient Services Department, with nursing staff and laboratory technologists in attendance, the procedure was discussed with the patient. Appropriate consent form had been signed. Appropriate alternatives, benefits and risks of procedure were discussed with the patient and she was pre- operatively assessed with a history and physical by myself and cleared for the biopsy procedure. The patient did request IV sedation and that was provided by the Anesthesia Department. Under aseptic condition right posterior iliac area was cleaned and prepped, local anesthesia was given and about 15 cc of bone marrow aspirate and core biopsy was obtained, patient tolerated procedure well, specimen was sent for routine histopathology and flow cytometry, and myeloma panel and FISH for MDS. Postprocedure nursing instructions were given Thank you for allowing me to participate in this patient's care and diagnosis. Coding Level of Care Code Acute Code for Ruperto Zepeda
[2022-09-11 12:39] VITALS: BP 123/58; PULSE 65; RESP 20; TEMP 36.4; O2SAT 97
[2022-09-11 12:57] VITALS: BP 118/55; PULSE 59; RESP 18; O2SAT 97
--- NOTE | 2022-09-11 16:25 | ANE.PACU2 ---
Inpatient post-anesthesia follow up: Airway intact: Yes Vital signs: Temperature 97.5 F Pulse Rate 59 Respiratory Rate 18 Blood Pressure 118/55 Pulse Oximetry 97 Oxygen Delivery Me thod Room Air Oxygen Flow Rate Fraction of Inspir ed Oxygen Hydration adequate: Yes Nausea and vomiting: No Pain level: 2 Mental status: Baseline
[2022-09-12 13:04] LABS: Leukemia Profile (BBPL) See Report; Lymphoma Profile (BBPL) See Report
[2022-09-21 07:42] LABS: Miscellaneous Test See Scanned Lab Rpt
[2022-09-29 08:21] LABS: Chromosome Analysis BBPL See Report; MDS Panel (BBPL) See Report
== END 2022-09-11 13:15 | disposition home or self-care (01) ==
PROVIDERS: PCP Family Medicine; Visit Provider Internal Medicine Hematology & Oncology
PROC: 07DT3ZX Extraction of Bone Marrow, Percutaneous Approach, Diagnostic (ICD-10-PCS; CPT 38222; principal; 2022-09-11 12:00)
DX: D47.2 Monoclonal gammopathy (principal); D64.9 Anemia, unspecified; I13.0 Hypertensive heart and chronic kidney disease with heart failure and stage 1 through stage 4 chronic kidney disease, or unspecified chronic kidney disease; E11.22 Type 2 diabetes mellitus with diabetic chronic kidney disease; I50.9 Heart failure, unspecified; N18.9 Chronic kidney disease, unspecified; J44.9 Chronic obstructive pulmonary disease, unspecified; G47.33 Obstructive sleep apnea (adult) (pediatric); Z79.84 Long term (current) use of oral hypoglycemic drugs; Z79.899 Other long term (current) drug therapy; Z87.891 Personal history of nicotine dependence
CPT/HCPCS: 36415; 36416; 38222; 82962; 85025; 88184; 88185; 88237; 88264; 88291; 88305; 88311; 88367; 88374; J2704; J7030

== ENCOUNTER 2022-10-19 13:56 | Oncology outpatient (recurring) (ONCR) | payer MEDICARE, OTHER, SELFPAY ==
[2022-10-19 15:22] LABS: Basophils # 0.1 10^3/uL (0.0-0.1); Basophils % 0.8 %; Eosinophils # 0.4 10^3/uL (0.0-0.8); Eosinophils % 3.7 %; Hematocrit 35.3 % (37.0-47.0); Hemoglobin 10.9 g/dL (11.5-15.3); Lymphocytes # 1.8 10^3/uL (0.8-4.8); Mean Corpuscular HGB Conc 30.9 g/dL (30.0-36.0); Mean Corpuscular Hemoglobin 27.9 pg (28.0-34.0); Mean Corpuscular Volume 90.3 fl (81-99); Mean Platelet Volume 10.8 fL (7.4-10.4); Monocytes % 8.3 %; Neutrophils # 8.54 10^3/uL (1.8-7.7); Neutrophils % 71.9 %; Nucleated Red Blood Cells % 0 %; Platelet Count 308 10^3/cmm (130-400); Red Blood Count 3.91 10^6/uL (4.1-5.3); Red Cell Distribution Width 13.8 % (12.1-15.1); White Blood Count 11.9 10^3/uL (4.0-10.0)
[2022-10-19 15:58] LABS: Alanine Aminotransferase 19 U/L (0-33); Albumin Level 4.3 g/dL (3.5-5.2); Alkaline Phosphatase 77 U/L (35-105); Anion Gap 17.7 (5-19); Aspartate Amino Transferase 18 U/L (0-32); Blood Urea Nitrogen 30 mg/dL (8-23); Calcium 9.4 mg/dL (8.5-10.5); Carbon Dioxide 22 mmol/L (22-29); Chloride 104 mmol/L (98-107); Globulin 2.4 g/dL (1.3-4.6); Glomerular Filtration Rate 32.2 mL/min (90-130); Glucose 106 mg/dL (65-115); Immunoglobulin IGA 79 mg/dL (70-400); Immunoglobulin IGG 1084 mg/dL (700-1600); Immunoglobulin IGM 52 mg/dL (40-230); Osmolality Calculated 295 mOsm/kg (285-295); Potassium 4.7 mmol/L (3.5-5.1); Sodium 139 mmol/L (136-145); Total Bilirubin 0.3 mg/dL (0.15-1.2); Total Protein 6.7 g/dL (6.6-8.7)
[2022-10-23 12:00] LABS: KAPPA/LAMBDA LIGHT CHAINS FREE 0.34 (0.26-1.65); LAMBDA LIGHT CHAIN, FREE, SERU 66.7 mg/L (5.7-26.3)
[2022-10-23 12:39] LABS: ABNORMAL PROTEIN BAND 1 0.7 g/dL (NONE DETECTED); ALBUMIN 4.1 g/dL (3.8-4.8); ALPHA 1 GLOBULIN 0.4 g/dL (0.2-0.3); ALPHA 2 GLOBULIN 0.8 g/dL (0.5-0.9); BETA 1 GLOBULIN 0.5 g/dL (0.4-0.6); BETA 2 GLOBULIN 0.3 g/dL (0.2-0.5)
== END 2022-11-03 23:59 | disposition home or self-care (01) ==
PROVIDERS: PCP Family Medicine; Visit Provider Internal Medicine Medical Oncology
DX: C90.00 Multiple myeloma not having achieved remission (principal); D50.8 Other iron deficiency anemias
CPT/HCPCS: 80053; 82784; 83883; 84155; 84165; 85025; 99215

== ENCOUNTER 2022-11-04 05:35 | Outpatient (CLI) | payer MEDICARE, OTHER, SELFPAY ==
--- NOTE | 2022-11-06 07:49 | PETR_ITS ---
PROCEDURE INFORMATION: Exam: PET/CT Whole Body Exam date and time: 11/04/2022 9:35 AM Age: 67 years old Clinical indication: Condition or disease; Patient HX: Myeloma dx 1 month ago, biopsy positive; Additional info: Myeloma staging LABS AND CLINICAL REPORTS: Glucose: 70 mg/dl Treatment strategy for malignancy (PET staging): Initial Staging (PI) TECHNIQUE: Imaging protocol: Following at least four-hour fasting and following the injection of radiopharmaceutical, low dose CT images were obtained. Then, PET images were obtained. Attenuation corrected images were constructed using the CT scan. Fused images of PET and CT were reviewed. The standardized uptake values (SUV) reported below are maximum values within a region of interest, expressed in gm/ml. Exam includes the whole body. Radiopharmaceutical: 11.78 mCi F-18 FDG (Fluorodeoxyglucose), IV. Time of imaging post radiopharmaceutical administration: 1 hour Injection site: Right AC COMPARISON: US renal BI* [id number] 08/23/2022 1:04 PM FINDINGS: Brain: Visualized brain has normal physiologic uptake. Pharynx: No abnormal uptake. Larynx: No abnormal uptake. Lungs, pleura and trachea: No abnormal uptake. Heart: Normal physiologic uptake. Mediastinal space: No abnormal uptake. Liver: No abnormal uptake. Gallbladder and bile ducts: Cholecystectomy. Pancreas: No abnormal uptake. Spleen: No abnormal uptake. Adrenal glands: No abnormal uptake. Kidneys and ureters: Left renal cyst without FDG uptake. Hysterectomy. Stomach and bowel: Hypermetabolic uptake is seen throughout the colon with more focal uptake in the region of the rectum with SUV max of 16.3. Vasculature: No abnormal uptake. Lymph nodes: No abnormal uptake. No lymphadenopathy in the head, neck, chest, abdomen, pelvis, and extremities. Bones/joints: See Soft tissues finding. Soft tissues: Hypermetabolic uptake within musculature about the right scapula may be physiologic (SUV max 6.8). PET/PET WB melanoma INITIAL [id number] IMPRESSION: 1. Hypermetabolic uptake is seen throughout the colon with more focal uptake in the region of the rectum. This could be infectious or inflammatory, though neoplasm is not entirely excluded. Recommend correlation with colonoscopy. 2. Hypermetabolic uptake within musculature about the right scapula may be physiologic.
== END 2022-11-04 05:36 | disposition home or self-care (01) ==
LOC: RAD 11-06 05:36
PROVIDERS: PCP Family Medicine; Visit Provider Internal Medicine Medical Oncology
DX: C90.00 Multiple myeloma not having achieved remission (principal); R93.3 Abnormal findings on diagnostic imaging of other parts of digestive tract
CPT/HCPCS: 78816; A9552

== ENCOUNTER 2022-11-14 13:58 | Outpatient (CLI) | payer MEDICARE, OTHER, SELFPAY ==
[2022-11-15 10:54] LABS: CREATININE, 24 HOUR URINE 2.15 g/24 h (0.50-2.15); PROTEIN, TOTAL, 24 HR UR 103 mg/24 h (<150); Protein/Creatinine Ratio 0.048 (<0.150); Protein/Creatinine Ratio 48 mg/g creat (<150)
[2022-11-17 13:45] LABS: ALBUMIN 0 %; ALPHA-1-GLOBULINS 0 %; ALPHA-2-GLOBULINS 0 %; BETA GLOBULINS 0 %; GAMMA GLOBULINS 0 %
== END 2022-11-14 13:59 | disposition home or self-care (01) ==
PROVIDERS: Internal Medicine Medical Oncology; PCP Family Medicine; Referring Provider Internal Medicine Nephrology; Visit Provider Family Medicine
DX: C90.00 Multiple myeloma not having achieved remission (principal)
CPT/HCPCS: 84156; 84166

== ENCOUNTER 2022-11-16 13:58 | Oncology outpatient (recurring) (ONCR) | payer MEDICARE, OTHER, SELFPAY ==
[2022-11-09 14:48] VITALS: BP 138/63; PULSE 65; RESP 18; TEMP 36.3; O2SAT 96
[2022-11-09 15:14] LABS: Basophils # 0.1 10^3/uL (0.0-0.1); Basophils % 0.9 %; Eosinophils # 0.4 10^3/uL (0.0-0.8); Hematocrit 32.6 % (37.0-47.0); Lymphocytes # 1.7 10^3/uL (0.8-4.8); Lymphocytes % 14.9 %; Mean Corpuscular HGB Conc 30.7 g/dL (30.0-36.0); Mean Corpuscular Hemoglobin 27.9 pg (28.0-34.0); Mean Corpuscular Volume 91.1 fl (81-99); Mean Platelet Volume 10.9 fL (7.4-10.4); Monocytes # 0.9 10^3/uL (0.2-0.9); Neutrophils # 7.98 10^3/uL (1.8-7.7); Neutrophils % 71.8 %; Nucleated Red Blood Cells % 0 %; Platelet Count 276 10^3/cmm (130-400); Red Blood Count 3.58 10^6/uL (4.1-5.3); Red Cell Distribution Width 13.4 % (12.1-15.1); White Blood Count 11.1 10^3/uL (4.0-10.0)
[2022-11-09 15:42] LABS: Alanine Aminotransferase 18 U/L (0-33); Albumin Level 4.1 g/dL (3.5-5.2); Alkaline Phosphatase 74 U/L (35-105); Anion Gap 19.1 (5-19); Aspartate Amino Transferase 21 U/L (0-32); Blood Urea Nitrogen 32 mg/dL (8-23); Carbon Dioxide 24 mmol/L (22-29); Chloride 104 mmol/L (98-107); Glomerular Filtration Rate 34.5 mL/min (90-130); Glucose 102 mg/dL (65-115); Immunoglobulin IGA 75 mg/dL (70-400); Immunoglobulin IGG 987 mg/dL (700-1600); Immunoglobulin IGM 49 mg/dL (40-230); Osmolality Calculated 301 mOsm/kg (285-295); Potassium 5.1 mmol/L (3.5-5.1); Sodium 142 mmol/L (136-145); Total Bilirubin 0.3 mg/dL (0.15-1.2); Total Protein 7.1 g/dL (6.6-8.7)
[2022-11-09 15:46] LABS: Creatinine Clr Calc Pharmacy 51.9504
[2022-11-10 11:05] LABS: PROTEIN, TOTAL 6.9 g/dL (6.1-8.1)
[2022-11-10 12:16] LABS: KAPPA LIGHT CHAIN, FREE, SERUM 22.6 mg/L (3.3-19.4); KAPPA/LAMBDA LIGHT CHAINS FREE 0.37 (0.26-1.65); LAMBDA LIGHT CHAIN, FREE, SERU 60.6 mg/L (5.7-26.3)
[2022-11-10 15:50] LABS: ABNORMAL PROTEIN BAND 1 0.7 g/dL (NONE DETECTED); ALPHA 1 GLOBULIN 0.4 g/dL (0.2-0.3); ALPHA 2 GLOBULIN 0.8 g/dL (0.5-0.9); BETA 1 GLOBULIN 0.5 g/dL (0.4-0.6); BETA 2 GLOBULIN 0.3 g/dL (0.2-0.5); GAMMA GLOBULIN 0.9 g/dL (0.8-1.7)
== END 2022-12-04 23:59 | disposition home or self-care (01) ==
PROVIDERS: PCP Family Medicine; Visit Provider Internal Medicine Medical Oncology
DX: C90.00 Multiple myeloma not having achieved remission (principal); D64.9 Anemia, unspecified; D47.2 Monoclonal gammopathy; I12.9 Hypertensive chronic kidney disease with stage 1 through stage 4 chronic kidney disease, or unspecified chronic kidney disease; N18.4 Chronic kidney disease, stage 4 (severe); Z79.899 Other long term (current) drug therapy; Z87.891 Personal history of nicotine dependence
CPT/HCPCS: 36415; 80053; 82784; 83883; 84155; 84165; 85025; 86334; 99214

== ENCOUNTER → 2022-12-05 15:08 | Outpatient (BNVA) | payer MEDICARE, OTHER, SELFPAY | PROVIDERS: PCP Family Medicine; Visit Provider Family Medicine | DX: I10 Essential (primary) hypertension (principal); E11.9 Type 2 diabetes mellitus without complications; N18.9 Chronic kidney disease, unspecified; E83.52 Hypercalcemia | CPT/HCPCS: 82306; 82310; 83036; 83970 ==

== ENCOUNTER → 2023-01-04 13:17 | Outpatient (BNVA) | payer MEDICARE, OTHER, SELFPAY | PROVIDERS: PCP Family Medicine; Visit Provider Internal Medicine Cardiovascular Disease | DX: I13.0 Hypertensive heart and chronic kidney disease with heart failure and stage 1 through stage 4 chronic kidney disease, or unspecified chronic kidney disease (principal); E11.22 Type 2 diabetes mellitus with diabetic chronic kidney disease; N18.9 Chronic kidney disease, unspecified; I50.30 Unspecified diastolic (congestive) heart failure; Z87.891 Personal history of nicotine dependence; Z79.84 Long term (current) use of oral hypoglycemic drugs | CPT/HCPCS: 99214 ==

== ENCOUNTER 2023-01-13 15:27 | Emergency (ER) | payer MEDICARE, OTHER, SELFPAY ==
[2023-01-13 15:30] VITALS: BP 165/66; PULSE 73; RESP 18; TEMP 36.9; O2SAT 95; BMI 55.0
[2023-01-13 15:39] VITALS: BP 133/48; PULSE 78; RESP 18; O2SAT 98
--- NOTE | 2023-01-13 16:09 | XRR_ITS ---
PROCEDURE INFORMATION: Exam: XR Left Knee Exam date and time: 01/13/2023 5:04 PM Age: 67 years old Clinical indication: Pain; Knee; Left TECHNIQUE: Imaging protocol: Radiologic exam of the left knee. Views: 3 views. COMPARISON: No relevant prior studies available. FINDINGS: Bones/joints: Severe joint space narrowing of the medial femoral compartment. Moderate osteophyte formation medially. Lateral view demonstrates prominent osteophyte and/or enthesophyte formation anteriorly about the left knee, including hypertrophic bony change at the patellofemoral compartment. No fracture or dislocation. No significant suprapatellar effusion. Lateral view demonstrates a few ossifications posteriorly and possibly anteriorly raising the possibility synovial osteochondromatosis. Soft tissues: No significant focal soft tissue abnormality. Soft tissue prominence could be related to body habitus or edema. XR/XR knee LT 3V* [id number] IMPRESSION: Moderate to severe osteoarthritis of the left knee, particularly involving medial femoral and patellofemoral compartments. 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 No fracture or acute osseous abnormality.
--- NOTE | 2023-01-13 17:42 | ED_ITS ---
HPI - Extremity Problem General: Chief complaint: Extremity Injury, Lower Stated complaint: knee pain Time Seen by Provider: 01/13/23 15:50 History of Present Illness: Alicja Flaherty is a 67-year-old female that presents to the emergency department with left knee pain. Patient states she was getting out of a vehicle had put her left foot on the side board she felt a sudden pop and had pain. Patient denies any twisting motion. Denies any falls or injuries She has trialed Tylenol and Carl wrap but finds the Carl wrap is intolerable. Patient states that she has never injured this knee before. Associated symptoms: Deny chest pain, fever(s) or rash Review of Systems General: Reports: 10 or more systems reviewed and unremarkable except in HPI and below Const: Denies: fever(s), chills, change in appetite, change in weight, fatigue or malaise Eyes: Denies: change in vision, eye discomfort, eye discharge or eye redness ENMT: Denies: throat pain, enlarged tonsils, odynophagia, hoarseness, ear or mastoid pain, ear discharge, change in hearing, tinnitus, nasal discharge, nasal congestion, post nasal drip or sinus pain Card: Denies: chest pain, palpitations, irregular heart rhythm, edema, dyspnea on exertion, orthopnea or leg pain with exertion Resp: Denies: dyspnea, productive cough, non-productive cough, wheezing, stridor or chest congestion GI: Denies: abdominal pain, nausea, vomiting, dysphagia, diarrhea, constipation, bloating, GI cramping or hematochezia : Denies: flank pain, difficulty voiding, dysuria, urinary frequency, urinary urgency, urinary hesitancy, oliguria or hematuria Musc: Reports: extremity pain, joint pain and muscle weakness; Denies: neck pain, back pain, joint swelling, joint redness or joint warmth Skin/Breast: Denies: rash, pruritus, erythema, photosensitivity or new lesions Neuro: Denies: headache(s), numbness in extremities, weakness in extremities, sensory changes, lack of coordination, difficulty walking, frequent falls, dizziness, confusion, Slurred speech present, difficulty communicating thoughts, seizure-like activity or involuntary movements Endo: Denies: polyuria, polydipsia or tired all the time Trey/Lymph: Denies: easy bruising or easy bleeding PFSH ED PFSH: Medical History Anemia CHF (congestive heart failure) Chronic kidney disease Degenerative arthritis Essential hypertension Hyperlipidemia Obstructive sleep apnea Type 2 diabetes mellitus Surgical History History of appendectomy History of bilateral cataract extraction History of cholecystectomy History of hysterectomy with bilateral oophorectomy History of tonsillectomy History of tubal ligation Family History Mother CAD (coronary artery disease) Diabetes Hypertension Sister CAD (coronary artery disease) Cancer Diabetes Father Suicide Social History Smoking and tobacco status: former smoker Quit status (tobacco): has quit using tobacco Year quit tobacco: 2002 Former quit date comment: Smoked from age 8 to 2002. Second hand smoke exposure: No Smoking risk assessment/counseling performed?: No Alcohol intake: never Desire information about alcohol rehabilitation?: No Counseling given: No Substance/Drug Use: never Desire information about substance/drug rehabilitation?: No Counseling given: No Adopted: No Caregiver/support person: No Lives independently: Yes Household members: spouse Marital status: Physical Exam Const: COMMON NORMALS: no acute distress, patient oriented x3 and alert GENERAL APPEARANCE: cooperative ORIENTATION/CONSCIOUSNESS: Yes awake, Yes oriented to person, Yes oriented to place and Yes oriented to time HENMT: COMMON NORMALS: normocephalic and atraumatic HEAD & SCALP: normocephalic and atraumatic FACE & SINUS: normal facial exam MOUTH: Normal oral and palatal mucosa present THROAT: posterior oropharynx normal Eye: COMMON NORMALS: Equal, round and reactive pupils present, EOMs intact bilaterally, conjunctivae normal and no scleral icterus GENERAL EYE: appearance normal, both eyes and all related structures ALIGNMENT: Yes alignment normal PERIORBITAL: periorbital findings normal CONJUNCTIVA: Yes conjunctivae normal PUPIL: Yes Equal, round and reactive pupils present Neck/C-Spine: COMMON NORMALS: full ROM GENERAL: Yes normal visual inspection Lymph: LYMPHATIC: no lymphadenopathy noted Chest: COMMONS NORMALS: normal inspection of the chest Breast/axilla inspection: Yes no chest deformity, asymmetry, normal contours, no nodules, masses, tenderness Resp: COMMON NORMALS: normal respiratory effort, No retractions and No use of accessory muscles EFFORT & INSPECTION: Yes able to speak in complete sentences and Yes symmetric chest movement Cardio: COMMON NORMALS: regular rate, regular rhythm and Peripheral pulses 2+ throughout RATE: regular rate RHYTHM: regular rhythm PERIPHERAL PULSES: Peripheral pulses 2+ throughout GI: COMMON NORMALS: Soft to palpation and non-tender INSPECTION: Yes normal to inspection and Yes central obesity AUSCULTATION: Yes normoactive bowel sounds PALPATION: Yes Soft to palpation RECTAL EXAM: deferred Extremity: COMMON NORMALS: normal to inspection GENERAL: Yes normal exam except as noted LEFT LOWER EXTREMITY: Yes knee joint OTHER: Left lower extremity exam Skin is clean dry and intact Mild tenderness to palpation the posterior knee as well as anterior knee Patient reports pain with flexion or weightbearing Patient can contract quad and gastroc to attempt straight leg raise but does not lift it off the bed She has dorsiflexion plantarflexion of the foot She has dorsiflexion of the great toe Sensation is intact to light touch at medial, lateral, dorsal, plantar surface of the foot and first webspace DP pulses palpable cap refills less than 3 seconds Neuro: COMMON NORMALS: patient oriented x3 SENSORIUM/ORIENTATION: Yes alert, Yes oriented to person, Yes oriented to place and Yes oriented to time CRANIAL NERVES: Yes CN normal except as noted Psych: COMMON NORMALS: mental status grossly normal, Normal thought process present, cooperative, activity/motor behavior normal, denies homicidal ideation and denies suicidal ideation THOUGHT PROCESS: Normal thought process present Skin: COMMON NORMALS: no rashes or lesions noted, no wounds and turgor normal GENERAL SKIN EXAM: no rashes or lesions noted and turgor normal Course Vital Signs: Vital signs: Vital Signs Temperature 98.4 F 01/13/23 15:30 Pulse Rate 78 01/13/23 18:09 Respiratory Rate 18 01/13/23 18:09 Blood Pressure 133/48 01/13/23 18:09 Pulse Oximetry 98 01/13/23 18:09 Oxygen Delivery Me thod Room Air 01/13/23 15:39 MDM - Extremity (Nontraumatic) Medical Decision Making Patient presented with left knee pain. Patient has a history of complaints of knee pain in this leg although she did not immediately recall. She was seen in 2020 with knee pain and was diagnosed with [place] patella, Lilliana Schlatter disease, and severe osteoarthritis. Here in the emergency Spike I had a differential that included ligamentous injury, fracture, dislocation, Ojeda's cyst I was unable to assess for stability as the patient would not comply. It was too painful. I did obtain an XR of the knee which revealed advanced degenerative changes in the left knee joint. No acute fractures visualized. Give the patient tramadol here in the emergency department and send her home with a few pills to get through the weekend. She needs to follow-up with her primary care doctor or orthopedics for further pain management. outside sales account manager has been consulted for referral to Dr. Juarez, patient's preference Lab Data Radiology Impressions Knee X-Ray 01/13/23 16:09 IMPRESSION: Moderate to severe osteoarthritis of the left knee, particularly involving medial femoral and patellofemoral compartments. 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 No fracture or acute osseous abnormality. Discharge Plan Discharge Patient Disposition: Home Clinical Impression: Knee osteoarthritis, Acute knee pain Condition: Stable Prescriptions: New tramadol 50 mg tablet 50 mg PO BID PRN (Reason: pain) Qty: 6 0RF No Action Estroven Menopause 400 mcg-40 mg- 40 mg-100 mg tablet 1 tab PO BEDTIME albuterol sulfate [ProAir HFA] 90 mcg/actuation HFA aerosol inhaler 2 puff inhalation QID PRN (Reason: shortness of breath or wheezing) Qty: 6.7 0RF nitroglycerin 0.4 mg tablet, sublingual 0.4 mg sublingual Q5M PRN (Reason: chest pain) Qty: 30 2RF Rx Instructions: do not exceed 3 doses per episode vitamin B complex [B Complex-Vitamin B12] Tablet 1 tab PO DAILY fluticasone propion-salmeterol [Advair Diskus] 250-50 mcg/dose blister with device 1 inh inhalation BID Qty: 60 5RF metformin 750 mg tablet extended release 24 hr 750 mg PO BID Qty: 60 5RF acetaminophen [Tylenol] 325 mg tablet 650 mg PO BID turmeric 400 mg capsule 400 mg PO DAILY albuterol sulfate 2.5 mg /3 mL (0.083 %) solution for nebulization 2.5 mg inhalation QID PRN (Reason: shortness of breath or wheezing) Qty: 75 1RF isosorbide mononitrate 30 mg tablet extended release 24 hr 30 mg PO DAILY Qty: 90 1RF Hold Instructions: Doctor's Order lisinopril 40 mg tablet 40 mg PO QAM Qty: 90 1RF rosuvastatin 5 mg tablet 5 mg PO BEDTIME Qty: 90 1RF furosemide 40 mg tablet 40 mg PO QAM Qty: 90 1RF amlodipine 5 mg tablet See Rx Instructions .ROUTE .COMPLEX Qty: 90 0RF Dose Instruction: TAKE 1 TABLET EVERY DAY Rx Instructions: TAKE 1 TABLET EVERY DAY Discharge Orders: Discharge ED (Routine); Ordered 01/13/23 Ordered By: Chayo Mcgregor Referrals: Shay Horton DO [Primary Care Provider] - Discharge Diet: Advance as tolerated Discharge Activity: Resume usual activity Patient Instructions: Osteoarthritis (ED), Opioid Safety, Pain Management Activity Restrictions/Additional Instructions: Please follow-up with your primary care doctor as well as orthopedics. I have reached out to case management to assist in setting up a referral to Dr. Juarez. Please use your walker Please return to the emergency department for new concerning or worsening sy mptoms Coding Level of Care Code ED Target Network Analyst for Ruperto Zepeda
[2023-01-13] MEDS: TRAMadol 50 mg Tablet 100 MG PO (18:02)
[2023-01-13 18:09] VITALS: BP 133/48; PULSE 78; RESP 18; O2SAT 98
--- NOTE | 2023-01-15 07:41 | DCPLANNER ---
customer acquisition manager had message to schedule a follow up appointment for patient with ortho. customer acquisition manager sent patients information to the front office staff at ortho. Patients information will be printed and reviewed. Clinic will call patient with appointment information.
== END 2023-01-13 18:10 | disposition home or self-care (01) ==
PROVIDERS: Emergency Provider Nurse Practitioner; PCP Family Medicine
DX: M17.12 Unilateral primary osteoarthritis, left knee (principal); Z79.84 Long term (current) use of oral hypoglycemic drugs; I13.0 Hypertensive heart and chronic kidney disease with heart failure and stage 1 through stage 4 chronic kidney disease, or unspecified chronic kidney disease; E11.22 Type 2 diabetes mellitus with diabetic chronic kidney disease; N18.9 Chronic kidney disease, unspecified; I50.9 Heart failure, unspecified; E78.5 Hyperlipidemia, unspecified; Z87.891 Personal history of nicotine dependence
CPT/HCPCS: 73562; 99283

== ENCOUNTER → 2023-01-22 13:36 | Outpatient (BNVA) | payer MEDICARE, OTHER, SELFPAY | PROVIDERS: PCP Family Medicine; Referring Provider Nurse Practitioner; Visit Provider Specialist | DX: S89.92XA Unspecified injury of left lower leg, initial encounter; X58.XXXA Exposure to other specified factors, initial encounter; M17.0 Bilateral primary osteoarthritis of knee; E66.01 Morbid (severe) obesity due to excess calories; Z68.43 Body mass index [BMI] 50.0-59.9, adult; C90.00 Multiple myeloma not having achieved remission | CPT/HCPCS: 73560; 73565; 99204 ==

== ENCOUNTER 2023-02-07 10:25 | Outpatient (CLI) | payer MEDICARE, OTHER, SELFPAY ==
[2023-02-07 11:12] LABS: Basophils # 0.1 10^3/uL (0.0-0.1); Basophils % 0.9 %; Eosinophils # 0.4 10^3/uL (0.0-0.8); Eosinophils % 4.3 %; Lymphocytes # 1.6 10^3/uL (0.8-4.8); Lymphocytes % 15.7 %; Mean Corpuscular HGB Conc 31.7 g/dL (30-55); Mean Corpuscular Hemoglobin 28.9 pg (27-33); Mean Corpuscular Volume 91.2 fl (85-98); Mean Platelet Volume 10.4 fL (7.4-10.4); Monocytes # 0.8 10^3/uL (0.2-0.9); Monocytes % 8.4 %; Neutrophils # 6.99 10^3/uL (1.8-7.7); Neutrophils % 70.3 %; Nucleated Red Blood Cells % 0 %; Platelet Count 270 10^3/cmm (157-399); Red Blood Count 3.29 10^6/uL (3.85-5.65); Red Cell Distribution Width 13.7 % (12.1-15.1); White Blood Count 9.95 10^3/uL (3.29-11.43)
[2023-02-07 11:37] LABS: Creatinine Urine, Random 64 mg/dL (28-217); Microalbum Creatinine Ratio Ur 16 mg/dL (0-20); Microalbumin Random Urine 1 ug/dL (0-20)
[2023-02-07 11:40] LABS: Anion Gap 15.6 (5-19); Blood Urea Nitrogen 27 mg/dL (8-23); Calcium 8.7 mg/dL (8.5-10.5); Carbon Dioxide 24 mmol/L (22-29); Chloride 104 mmol/L (98-107); Glomerular Filtration Rate 37.4 mL/min (90-130); Glucose 106 mg/dL (65-115); Phosphorus 3.6 mg/dL (2.5-4.5); Potassium 4.6 mmol/L (3.5-5.1); Sodium 139 mmol/L (136-145)
[2023-02-07 11:41] LABS: Calcium 8.6 mg/dL (8.5-10.5)
[2023-02-07 11:48] LABS: Parathyroid Hormone 83.4 pg/mL (15-65)
[2023-02-07 11:56] LABS: 25 Hydroxy Vitamin D 31 ng/mL (30-100)
== END 2023-02-07 10:26 | disposition home or self-care (01) ==
PROVIDERS: PCP Family Medicine; Visit Provider Registered Nurse
DX: N18.32 Chronic kidney disease, stage 3b (principal); E55.9 Vitamin D deficiency, unspecified
CPT/HCPCS: 36415; 80069; 82044; 82306; 82310; 83970; 85025

== ENCOUNTER 2023-02-13 09:55 | Outpatient (CLI) | payer MEDICARE, OTHER, SELFPAY ==
--- NOTE | 2023-02-13 10:07 | MM_ITS ---
WS: [id number] BILATERAL 3D TOMOSYNTHESIS DIGITAL SCREENING MAMMOGRAPHY WITH CAD CLINICAL INFORMATION: SCREENING HISTORY: Screening mammogram. No current complaints. COMPARISON: 2021 TECHNIQUE: Bilateral CC and MLO views. FINDINGS: Scattered fibroglandular densities bilaterally. No suspicious focal mass, asymmetry, calcifications, or architectural distortion. No evidence of malignancy. Punctate calcifications LEFT breast IMPRESSION: MM/[place] [id number] BI-RADS: 2-Benign FOLLOW UP: 1 Year Follow-up Recommend return to annual screening mammography.
== END 2023-02-13 09:56 | disposition home or self-care (01) ==
LOC: RAD 09:59
PROVIDERS: PCP Family Medicine; Visit Provider Family Medicine
DX: Z12.31 Encounter for screening mammogram for malignant neoplasm of breast (principal)
CPT/HCPCS: 77063; 77067

== ENCOUNTER 2023-02-15 10:50 | Oncology outpatient (recurring) (ONCR) | payer MEDICARE, OTHER, SELFPAY ==
[2023-02-13 12:33] LABS: Basophils # 0.1 10^3/uL (0.0-0.1); Basophils % 0.8 %; Eosinophils # 0.4 10^3/uL (0.0-0.8); Eosinophils % 4.6 %; Hematocrit 29.8 % (36-47); Lymphocytes # 1.5 10^3/uL (0.8-4.8); Lymphocytes % 15.1 %; Mean Corpuscular HGB Conc 31.2 g/dL (30-55); Mean Corpuscular Hemoglobin 28.8 pg (27-33); Mean Corpuscular Volume 92.3 fl (85-98); Mean Platelet Volume 10.6 fL (7.4-10.4); Monocytes # 0.8 10^3/uL (0.2-0.9); Monocytes % 8.2 %; Neutrophils # 6.86 10^3/uL (1.8-7.7); Neutrophils % 70.9 %; Nucleated Red Blood Cells % 0 %; Platelet Count 253 10^3/cmm (157-399); Red Blood Count 3.23 10^6/uL (3.85-5.65); Red Cell Distribution Width 13.6 % (12.1-15.1); White Blood Count 9.67 10^3/uL (3.29-11.43)
[2023-02-13 13:09] LABS: Alanine Aminotransferase 14 U/L (0-33); Albumin Level 4.1 g/dL (3.5-5.2); Alkaline Phosphatase 66 U/L (35-105); Anion Gap 14.7 (5-19); Aspartate Amino Transferase 16 U/L (0-32); Blood Urea Nitrogen 33 mg/dL (8-23); Calcium 9.1 mg/dL (8.5-10.5); Carbon Dioxide 25 mmol/L (22-29); Chloride 107 mmol/L (98-107); Globulin 2.7 g/dL (1.3-4.6); Glomerular Filtration Rate 26.3 mL/min (90-130); Glucose 110 mg/dL (65-115); Immunoglobulin IGA 61 mg/dL (70-400); Immunoglobulin IGG 996 mg/dL (700-1600); Immunoglobulin IGM 43 mg/dL (40-230); Osmolality Calculated 302 mOsm/kg (285-295); Potassium 4.7 mmol/L (3.5-5.1); Sodium 142 mmol/L (136-145); Total Bilirubin 0.3 mg/dL (0.15-1.2); Total Protein 6.8 g/dL (6.6-8.7)
[2023-02-13 15:04] VITALS: BP 174/65; PULSE 76; RESP 16; TEMP 36.4; O2SAT 93
[2023-02-14 07:48] LABS: PROTEIN, TOTAL 6.4 g/dL (6.1-8.1)
[2023-02-14 13:15] LABS: KAPPA LIGHT CHAIN, FREE, SERUM 23.7 mg/L (3.3-19.4); KAPPA/LAMBDA LIGHT CHAINS FREE 0.35 (0.26-1.65); LAMBDA LIGHT CHAIN, FREE, SERU 67.1 mg/L (5.7-26.3)
[2023-02-14 15:19] LABS: ABNORMAL PROTEIN BAND 1 0.6 g/dL (NONE DETECTED); ALBUMIN 3.6 g/dL (3.8-4.8); ALPHA 1 GLOBULIN 0.4 g/dL (0.2-0.3); ALPHA 2 GLOBULIN 0.8 g/dL (0.5-0.9); BETA 1 GLOBULIN 0.4 g/dL (0.4-0.6); BETA 2 GLOBULIN 0.3 g/dL (0.2-0.5); GAMMA GLOBULIN 0.9 g/dL (0.8-1.7)
== END 2023-03-06 23:59 | disposition home or self-care (01) ==
PROVIDERS: PCP Family Medicine; Visit Provider Internal Medicine Medical Oncology
DX: D64.9 Anemia, unspecified (principal); C90.00 Multiple myeloma not having achieved remission; Z79.899 Other long term (current) drug therapy
CPT/HCPCS: 36415; 80053; 82784; 83883; 84155; 84165; 85025; 99214

== ENCOUNTER → 2023-03-19 09:11 | Outpatient (BNVA) | payer MEDICARE, OTHER, SELFPAY | PROVIDERS: PCP Family Medicine; Visit Provider Specialist | DX: M17.0 Bilateral primary osteoarthritis of knee (principal); S89.92XD Unspecified injury of left lower leg, subsequent encounter; X58.XXXD Exposure to other specified factors, subsequent encounter; E66.01 Morbid (severe) obesity due to excess calories; Z68.43 Body mass index [BMI] 50.0-59.9, adult | CPT/HCPCS: 73560; 73565; 99214 ==

== ENCOUNTER 2023-05-14 07:45 | Oncology outpatient (recurring) (ONCR) | payer MEDICARE, OTHER, SELFPAY ==
[2023-05-14 07:54] VITALS: BP 138/73; PULSE 97; RESP 20; TEMP 35.9; O2SAT 97
[2023-05-14 08:18] LABS: Basophils # 0.1 10^3/uL (0.0-0.1); Basophils % 0.8 %; Eosinophils # 0.4 10^3/uL (0.0-0.8); Eosinophils % 4.1 %; Hematocrit 31.3 % (36-47); Lymphocytes # 1.5 10^3/uL (0.8-4.8); Lymphocytes % 16.2 %; Mean Corpuscular Hemoglobin 29.2 pg (27-33); Mean Corpuscular Volume 94.3 fl (85-98); Mean Platelet Volume 10.5 fL (7.4-10.4); Monocytes # 0.7 10^3/uL (0.2-0.9); Monocytes % 7.4 %; Neutrophils # 6.32 10^3/uL (1.8-7.7); Neutrophils % 70.8 %; Nucleated Red Blood Cells % 0 %; Platelet Count 222 10^3/cmm (157-399); Red Blood Count 3.32 10^6/uL (3.85-5.65); Red Cell Distribution Width 13.9 % (12.1-15.1); White Blood Count 8.93 10^3/uL (3.29-11.43)
[2023-05-14 08:38] LABS: Alanine Aminotransferase 13 U/L (0-33); Alkaline Phosphatase 66 U/L (35-105); Anion Gap 14.9 (5-19); Aspartate Amino Transferase 13 U/L (0-32); Blood Urea Nitrogen 29 mg/dL (8-23); Calcium 9.5 mg/dL (8.5-10.5); Carbon Dioxide 25 mmol/L (22-29); Chloride 103 mmol/L (98-107); Glomerular Filtration Rate 37.4 mL/min (90-130); Glucose 145 mg/dL (65-115); Immunoglobulin IGA 77 mg/dL (70-400); Immunoglobulin IGG 1039 mg/dL (700-1600); Immunoglobulin IGM 52 mg/dL (40-230); Osmolality Calculated 294 mOsm/kg (285-295); Potassium 4.9 mmol/L (3.5-5.1); Sodium 138 mmol/L (136-145); Total Bilirubin 0.3 mg/dL (0.15-1.2)
[2023-05-14 09:33] LABS: Estmated Average Glucose 120; Hemoglobin A1C 5.8 % (4.0-6.0)
[2023-05-15 07:54] LABS: PROTEIN, TOTAL 6.5 g/dL (6.1-8.1)
[2023-05-15 13:30] LABS: KAPPA LIGHT CHAIN, FREE, SERUM 26.1 mg/L (3.3-19.4); KAPPA/LAMBDA LIGHT CHAINS FREE 0.37 (0.26-1.65); LAMBDA LIGHT CHAIN, FREE, SERU 70.7 mg/L (5.7-26.3)
[2023-05-15 16:14] LABS: ABNORMAL PROTEIN BAND 1 0.7 g/dL (NONE DETECTED); ALBUMIN 3.8 g/dL (3.8-4.8); ALPHA 1 GLOBULIN 0.4 g/dL (0.2-0.3); ALPHA 2 GLOBULIN 0.7 g/dL (0.5-0.9); BETA 1 GLOBULIN 0.4 g/dL (0.4-0.6); BETA 2 GLOBULIN 0.3 g/dL (0.2-0.5); GAMMA GLOBULIN 0.9 g/dL (0.8-1.7)
== END 2023-06-06 23:59 | disposition home or self-care (01) ==
PROVIDERS: PCP Family Medicine; Visit Provider Internal Medicine Medical Oncology
DX: C90.00 Multiple myeloma not having achieved remission (principal); D64.9 Anemia, unspecified; Z79.899 Other long term (current) drug therapy
CPT/HCPCS: 36415; 80053; 82784; 83036; 83883; 84155; 84165; 85025; 86334; 99213

== ENCOUNTER → 2023-05-14 07:45 | Outpatient (BNVA) | payer MEDICARE, OTHER, SELFPAY | PROVIDERS: PCP Family Medicine; Visit Provider Internal Medicine | DX: Z53.9 Procedure and treatment not carried out, unspecified reason (principal) | CPT/HCPCS: 99213 ==

== ENCOUNTER 2023-08-28 10:14 | Outpatient (CLI) | payer MEDICARE, OTHER, SELFPAY ==
[2023-08-28 10:57] LABS: Basophils # 0.1 10^3/uL (0.0-0.1); Basophils % 0.9 %; Eosinophils # 0.5 10^3/uL (0.0-0.8); Eosinophils % 4.5 %; Hematocrit 31.1 % (36-47); Lymphocytes # 1.5 10^3/uL (0.8-4.8); Lymphocytes % 14.8 %; Mean Corpuscular HGB Conc 30.9 g/dL (30-55); Mean Corpuscular Hemoglobin 29.4 pg (27-33); Mean Corpuscular Volume 95.1 fl (85-98); Mean Platelet Volume 10.3 fL (7.4-10.4); Monocytes # 0.8 10^3/uL (0.2-0.9); Monocytes % 7.4 %; Neutrophils # 7.41 10^3/uL (1.8-7.7); Neutrophils % 71.8 %; Nucleated Red Blood Cells % 0 %; Platelet Count 246 10^3/cmm (157-399); Red Blood Count 3.27 10^6/uL (3.85-5.65); White Blood Count 10.31 10^3/uL (3.29-11.43)
[2023-08-28 11:16] LABS: Creatinine Urine, Random 45 mg/dL (28-217); Microalbum Creatinine Ratio Ur 22 mg/dL (0-20); Microalbumin Random Urine 1 ug/dL (0-20)
[2023-08-28 11:23] LABS: Calcium 8.7 mg/dL (8.5-10.5)
[2023-08-28 11:31] LABS: Parathyroid Hormone 40.1 pg/mL (15-65)
[2023-08-28 11:36] LABS: 25 Hydroxy Vitamin D 28 ng/mL (30-100); Anion Gap 12.4 (5-19); Blood Urea Nitrogen 32 mg/dL (8-23); Calcium 8.9 mg/dL (8.5-10.5); Carbon Dioxide 26 mmol/L (22-29); Chloride 106 mmol/L (98-107); Glomerular Filtration Rate 26.3 mL/min (90-130); Glucose 128 mg/dL (65-115); Phosphorus 3.8 mg/dL (2.5-4.5); Potassium 4.4 mmol/L (3.5-5.1); Sodium 140 mmol/L (136-145)
== END 2023-08-28 10:15 | disposition home or self-care (01) ==
LOC: LAB 10:16
PROVIDERS: PCP Family Medicine; Visit Provider Internal Medicine Nephrology
DX: N18.32 Chronic kidney disease, stage 3b (principal)
CPT/HCPCS: 36415; 80069; 82044; 82306; 82310; 83970; 85025

== ENCOUNTER 2023-09-05 13:19 | Outpatient (CLI) | payer MEDICARE, OTHER, SELFPAY ==
[2023-09-05 14:18] LABS: Basophils # 0.1 10^3/uL (0.0-0.1); Basophils % 0.6 %; Eosinophils # 0.4 10^3/uL (0.0-0.8); Eosinophils % 3.8 %; Hematocrit 29.8 % (36-47); Lymphocytes # 1.7 10^3/uL (0.8-4.8); Lymphocytes % 15.5 %; Mean Corpuscular HGB Conc 31.5 g/dL (30-55); Mean Corpuscular Hemoglobin 29.7 pg (27-33); Mean Platelet Volume 10.7 fL (7.4-10.4); Monocytes # 0.9 10^3/uL (0.2-0.9); Monocytes % 8.4 %; Neutrophils # 7.96 10^3/uL (1.8-7.7); Neutrophils % 71.3 %; Nucleated Red Blood Cells % 0 %; Platelet Count 267 10^3/cmm (157-399); Red Blood Count 3.17 10^6/uL (3.85-5.65); Red Cell Distribution Width 13.7 % (12.1-15.1); White Blood Count 11.19 10^3/uL (3.29-11.43)
[2023-09-05 14:35] LABS: Estmated Average Glucose 120; Hemoglobin A1C 5.8 % (4.0-6.0)
[2023-09-05 14:42] LABS: Alanine Aminotransferase 15 U/L (0-33); Alkaline Phosphatase 79 U/L (35-105); Anion Gap 15.1 (5-19); Aspartate Amino Transferase 16 U/L (0-32); Blood Urea Nitrogen 28 mg/dL (8-23); Calcium 8.5 mg/dL (8.5-10.5); Carbon Dioxide 25 mmol/L (22-29); Chloride 104 mmol/L (98-107); Ferritin 331 ng/mL (15-150); Globulin 2.6 g/dL (1.3-4.6); Glomerular Filtration Rate 32.1 mL/min (90-130); Glucose 95 mg/dL (65-115); Iron 35 ug/dL (37-145); Lactate Dehydrogenase 191 U/L (135-214); Osmolality Calculated 295 mOsm/kg (285-295); Phosphorus 3.3 mg/dL (2.5-4.5); Potassium 4.1 mmol/L (3.5-5.1); Sodium 140 mmol/L (136-145); Total Bilirubin 0.3 mg/dL (0.15-1.2); Total Iron Binding Capacity 269 mcg/dl; Total Protein 6.6 g/dL (6.6-8.7); Unsaturated Iron Binding 234 ug/dL (112-347)
[2023-09-05 14:54] LABS: Vitamin B12 890 pg/mL (232-1245)
[2023-09-05 15:13] LABS: Immunoglobulin IGA 65 mg/dL (70-400); Immunoglobulin IGG 1028 mg/dL (700-1600); Immunoglobulin IGM 46 mg/dL (40-230)
[2023-09-05 16:06] LABS: Folate Level > 20.0 ng/mL (4.8-37.3)
[2023-09-06 12:50] LABS: PROTEIN, TOTAL 6.4 g/dL (6.1-8.1)
[2023-09-06 15:45] LABS: Creatinine, Random Urine 37 mg/dL (20-275); Protein, Total, Random <4 mg/dL (5-24); Protein/Creatinine Ratio NOTE (0.024-0.184); Protein/Creatinine Ratio NOTE mg/g creat (24-184)
[2023-09-07 09:45] LABS: Albumin,Urine Random 0 %; Alpha-1-Globulins Urine Random 0 %; Alpha-2-Globulins Urine Random 0 %; Beta-Globulin,Urine Random 0 %; Gamma Globulin,Urine Random 0 %
[2023-09-07 11:59] LABS: KAPPA/LAMBDA LIGHT CHAINS FREE 0.32 (0.26-1.65); LAMBDA LIGHT CHAIN, FREE, SERU 68.5 mg/L (5.7-26.3)
[2023-09-07 15:54] LABS: ABNORMAL PROTEIN BAND 1 0.7 g/dL (NONE DETECTED); ALBUMIN 3.6 g/dL (3.8-4.8); ALPHA 1 GLOBULIN 0.4 g/dL (0.2-0.3); ALPHA 2 GLOBULIN 0.8 g/dL (0.5-0.9); BETA 1 GLOBULIN 0.4 g/dL (0.4-0.6); BETA 2 GLOBULIN 0.3 g/dL (0.2-0.5); GAMMA GLOBULIN 0.9 g/dL (0.8-1.7)
[2023-09-10 01:13] LABS: Methylmalonic Acid 210 nmol/L (87-318)
== END 2023-09-05 13:20 | disposition home or self-care (01) ==
LOC: LAB 13:21
PROVIDERS: Internal Medicine; PCP Family Medicine; Visit Provider Family Medicine
DX: C90.00 Multiple myeloma not having achieved remission (principal); E11.9 Type 2 diabetes mellitus without complications
CPT/HCPCS: 36415; 80053; 80069; 82570; 82607; 82728; 82746; 82784; 83036; 83540; 83550; 83615; 83883; 83921; 84155; 84156; 84165; 84166; 85025; 86334; 86335

== ENCOUNTER 2023-09-26 11:54 | Oncology outpatient (recurring) (ONCR) | payer MEDICARE, OTHER, SELFPAY ==
[2023-09-26 13:36] LABS: Basophils # 0.1 10^3/uL (0.0-0.1); Basophils % 0.8 %; Eosinophils # 0.5 10^3/uL (0.0-0.8); Eosinophils % 3.5 %; Hematocrit 33.4 % (36-47); Lymphocytes # 1.8 10^3/uL (0.8-4.8); Lymphocytes % 13.6 %; Mean Corpuscular HGB Conc 31.1 g/dL (30-55); Mean Corpuscular Hemoglobin 29.6 pg (27-33); Mean Corpuscular Volume 95.2 fl (85-98); Mean Platelet Volume 10.6 fL (7.4-10.4); Monocytes # 1.1 10^3/uL (0.2-0.9); Monocytes % 8.3 %; Neutrophils # 9.48 10^3/uL (1.8-7.7); Neutrophils % 73.3 %; Nucleated Red Blood Cells % 0 %; Platelet Count 308 10^3/cmm (157-399); Red Blood Count 3.51 10^6/uL (3.85-5.65); Red Cell Distribution Width 13.6 % (12.1-15.1); Reticulocyte % 2.5 % (0.5-2.0); White Blood Count 12.97 10^3/uL (3.29-11.43)
[2023-09-26 14:16] LABS: Alanine Aminotransferase 19 U/L (0-33); Albumin Level 4.3 g/dL (3.5-5.2); Alkaline Phosphatase 77 U/L (35-105); Anion Gap 16.2 (5-19); Aspartate Amino Transferase 23 U/L (0-32); Blood Urea Nitrogen 40 mg/dL (8-23); Calcium 9.2 mg/dL (8.5-10.5); Carbon Dioxide 25 mmol/L (22-29); Chloride 101 mmol/L (98-107); Creatinine Clr Calc Pharmacy 43.5259; Ferritin 449 ng/mL (15-150); Globulin 3.3 g/dL (1.3-4.6); Glucose 101 mg/dL (65-115); Iron 40 ug/dL (37-145); Lactate Dehydrogenase 212 U/L (135-214); Osmolality Calculated 294 mOsm/kg (285-295); Percent Saturation 12.9 % (20-50); Potassium 5.2 mmol/L (3.5-5.1); Sodium 137 mmol/L (136-145); Total Bilirubin 0.3 mg/dL (0.15-1.2); Total Iron Binding Capacity 308 mcg/dl; Total Protein 7.6 g/dL (6.6-8.7); Unsaturated Iron Binding 268 ug/dL (112-347)
[2023-09-26 14:31] LABS: Vitamin B12 1183 pg/mL (232-1245)
[2023-09-26 14:53] LABS: Folate Level > 20.0 ng/mL (4.8-37.3)
[2023-09-26 15:00] LABS: LAB Peripheral Smear Sent for Review
[2023-09-28 02:30] LABS: PROTEIN, TOTAL 6.8 g/dL (6.1-8.1)
[2023-09-28 10:24] LABS: ABNORMAL PROTEIN BAND 1 0.7 g/dL (NONE DETECTED); ALPHA 1 GLOBULIN 0.4 g/dL (0.2-0.3); ALPHA 2 GLOBULIN 0.8 g/dL (0.5-0.9); BETA 1 GLOBULIN 0.4 g/dL (0.4-0.6); BETA 2 GLOBULIN 0.3 g/dL (0.2-0.5); GAMMA GLOBULIN 0.9 g/dL (0.8-1.7)
[2023-09-28 13:03] LABS: KAPPA LIGHT CHAIN, FREE, SERUM 25.7 mg/L (3.3-19.4); KAPPA/LAMBDA LIGHT CHAINS FREE 0.32 (0.26-1.65); LAMBDA LIGHT CHAIN, FREE, SERU 80.6 mg/L (5.7-26.3)
[2023-09-28 15:40] LABS: Copper Level 135 mcg/dL (70-175)
== END 2023-10-05 23:59 | disposition home or self-care (01) ==
PROVIDERS: Internal Medicine Hematology & Oncology; PCP Family Medicine; Visit Provider Internal Medicine Medical Oncology
DX: D50.8 Other iron deficiency anemias (principal); E11.22 Type 2 diabetes mellitus with diabetic chronic kidney disease; I12.9 Hypertensive chronic kidney disease with stage 1 through stage 4 chronic kidney disease, or unspecified chronic kidney disease; N18.32 Chronic kidney disease, stage 3b; D63.1 Anemia in chronic kidney disease; Z87.891 Personal history of nicotine dependence; Z79.84 Long term (current) use of oral hypoglycemic drugs; D47.2 Monoclonal gammopathy; Z98.890 Other specified postprocedural states
CPT/HCPCS: 36415; 80053; 80503; 82525; 82607; 82728; 82746; 83540; 83550; 83615; 83883; 84155; 84165; 85025; 85045; 99214

== ENCOUNTER → 2023-10-23 14:43 | Outpatient (BNVA) | payer MEDICARE, OTHER, SELFPAY | PROVIDERS: PCP Family Medicine; Visit Provider Family Medicine | DX: I50.9 Heart failure, unspecified (principal); R06.01 Orthopnea; R06.00 Dyspnea, unspecified; E78.2 Mixed hyperlipidemia; E83.42 Hypomagnesemia; E11.9 Type 2 diabetes mellitus without complications; I10 Essential (primary) hypertension | CPT/HCPCS: 80053; 80061; 83036; 83735; 83880; 84443; 85025 ==

== ENCOUNTER 2023-11-07 08:31 | Outpatient (CLI) | payer MEDICARE, OTHER, SELFPAY ==
--- NOTE | 2023-11-07 09:15 | USCV_ITS ---
Alicja Flaherty Age: 68 Gender: F : 1955 Exam Date: 11/07/2023 08:44 Ordering Phys: Shay Horton DO Technologist: CT Exam [place] [facility] [place]: sob BP: 125 / 76 HR: 64 Rhythm: Sinus Technical Quality: Technically difficult study MEASUREMENTS (Male / Female) Normal Values 2D ECHO LVOT Diameter 2.1 cm LV Ejection Fraction MOD 2C 68.5 % LV Ejection Fraction 2C AL 67.6 % LA Diameter 3.9 cm RA Systolic Volume 4C AL 55.3 ml RA Systolic Volume 4C MOD 56.5 ml LA Sys Volume AL 81.9 cm cubed LA Sys Volume Index AL 29.4 cm cubed/m squared Aorta at Sinotubular Diameter 2.7 cm IVC Diameter 2.1 cm M-MODE LA Ao Ratio MM 1.4 AV Cusp Separation MM 1.9 cm DOPPLER AV Peak Velocity 203.0 cm/s LVOT Peak Velocity 169.0 cm/s AV Area Cont Eq vti 2.9 cm squared AV Area Cont Eq pk 3.0 cm squared MV Peak Velocity 108.0 cm/s MV Area PHT 2.9 cm squared Mitral E to A Ratio 0.9 TR Peak Velocity 172.0 cm/s TR Peak Gradient 11.8 mmHg TV Peak E Velocity 77.0 cm/s Right Atrial Pressure 3.0 mmHg Pulmonary Artery Systolic Pressu 14.8 mmHg PV Peak Velocity 138.0 cm/s FINDINGS Left Ventricle Relatively poor quality imaging. The ventricle was seen in the apical view only. There is likely normal left ventricular size and function. Ejection fraction about 60%. Diastolic function evaluation not available. Right Ventricle Normal right ventricular size and systolic function. Normal right ventricular systolic pressure. Right Atrium The right atrium is normal in size. Left Atrium Mildly increased left atrial size. Mitral Valve Mitral valve not well-seen. No obvious regurgitation. Aortic Valve Aortic valve not well-seen. No obvious stenosis or regurgitation. Tricuspid Valve Tricuspid valve not well-seen. Pulmonic Valve Pulmonic valve not well visualized. Pericardium Normal pericardium without effusion. Aorta Normal ascending aorta dimension. IVC Inferior vena cava not visualized. CONCLUSIONS Relatively poor quality imaging. The ventricle was seen in the apical view only. There is likely normal left ventricular size and function. Ejection fraction about 60%. Diastolic function evaluation not available. Mildly increased left atrial size. There are no prior echocardiogram studies to compare. Dr. Mitchell Dominguez MD (Electronically Signed) Final Date: 07 November 2023 19:18 S
== END 2023-11-07 08:32 | disposition home or self-care (01) ==
LOC: RAD 08:32
PROVIDERS: PCP Family Medicine; Visit Provider Family Medicine
DX: I50.9 Heart failure, unspecified (principal); R06.01 Orthopnea; R06.00 Dyspnea, unspecified; I51.7 Cardiomegaly
CPT/HCPCS: 93306

== ENCOUNTER 2023-12-03 14:00 | Oncology outpatient (recurring) (ONCR) | payer MEDICARE, OTHER, SELFPAY ==
[2023-11-27 12:47] LABS: Basophils # 0.1 10^3/uL (0.0-0.1); Basophils % 0.8 %; Eosinophils # 0.5 10^3/uL (0.0-0.8); Eosinophils % 4.7 %; Hematocrit 28.5 % (36-47); Lymphocytes # 1.4 10^3/uL (0.8-4.8); Lymphocytes % 14.3 %; Mean Corpuscular HGB Conc 30.5 g/dL (30-55); Mean Corpuscular Hemoglobin 29.3 pg (27-33); Mean Platelet Volume 9.9 fL (7.4-10.4); Monocytes # 0.8 10^3/uL (0.2-0.9); Monocytes % 8.1 %; Neutrophils # 6.92 10^3/uL (1.8-7.7); Neutrophils % 71.6 %; Nucleated Red Blood Cells % 0 %; Platelet Count 253 10^3/cmm (157-399); Red Blood Count 2.97 10^6/uL (3.85-5.65); Red Cell Distribution Width 13.9 % (12.1-15.1); Reticulocyte % 2.2 % (0.5-2.0); White Blood Count 9.66 10^3/uL (3.29-11.43)
[2023-11-27 13:06] LABS: Alanine Aminotransferase 16 U/L (0-33); Albumin Level 4.1 g/dL (3.5-5.2); Alkaline Phosphatase 65 U/L (35-105); Anion Gap 15.7 (5-19); Aspartate Amino Transferase 14 U/L (0-32); Blood Urea Nitrogen 35 mg/dL (8-23); Carbon Dioxide 22 mmol/L (22-29); Chloride 102 mmol/L (98-107); Ferritin 360 ng/mL (15-150); Globulin 2.9 g/dL (1.3-4.6); Glomerular Filtration Rate 24.7 mL/min (90-130); Glucose 111 mg/dL (65-115); Iron 42 ug/dL (37-145); Lactate Dehydrogenase 177 U/L (135-214); Osmolality Calculated 287 mOsm/kg (285-295); Percent Saturation 14.5 % (20-50); Potassium 5.7 mmol/L (3.5-5.1); Sodium 134 mmol/L (136-145); Total Bilirubin 0.3 mg/dL (0.15-1.2); Total Iron Binding Capacity 289 mcg/dl; Unsaturated Iron Binding 247 ug/dL (112-347)
[2023-11-27 13:09] LABS: Creatinine Urine, Random 23 mg/dL (28-217); Microalbumin Random Urine 1 ug/dL (0-20)
[2023-11-27 13:21] LABS: Vitamin B12 720 pg/mL (232-1245)
[2023-11-27 13:21] LABS: Microalbum Creatinine Ratio Ur 43 mg/dL (0-20)
[2023-11-27 13:22] LABS: 25 Hydroxy Vitamin D 30 ng/mL (30-100)
[2023-11-27 13:27] LABS: Calcium 9.1 mg/dL (8.5-10.5)
[2023-11-27 13:30] LABS: Parathyroid Hormone 69.3 pg/mL (15-65)
[2023-11-27 14:08] LABS: Folate Level > 20.0 ng/mL (4.8-37.3)
[2023-12-03 14:18] LABS: Basophils # 0.1 10^3/uL (0.0-0.1); Basophils % 0.8 %; Eosinophils # 0.5 10^3/uL (0.0-0.8); Eosinophils % 4.7 %; Hematocrit 30.3 % (36-47); Lymphocytes # 1.7 10^3/uL (0.8-4.8); Lymphocytes % 16.7 %; Mean Corpuscular Hemoglobin 29.7 pg (27-33); Mean Corpuscular Volume 95.9 fl (85-98); Mean Platelet Volume 10.2 fL (7.4-10.4); Monocytes # 0.9 10^3/uL (0.2-0.9); Monocytes % 9.1 %; Neutrophils # 6.91 10^3/uL (1.8-7.7); Neutrophils % 68.2 %; Nucleated Red Blood Cells % 0 %; Platelet Count 267 10^3/cmm (157-399); Red Blood Count 3.16 10^6/uL (3.85-5.65); Red Cell Distribution Width 13.8 % (12.1-15.1); White Blood Count 10.13 10^3/uL (3.29-11.43)
[2023-12-03 14:36] LABS: Alanine Aminotransferase 17 U/L (0-33); Alkaline Phosphatase 80 U/L (35-105); Anion Gap 17.8 (5-19); Aspartate Amino Transferase 18 U/L (0-32); Blood Urea Nitrogen 44 mg/dL (8-23); Carbon Dioxide 21 mmol/L (22-29); Chloride 108 mmol/L (98-107); Creatinine Clr Calc Pharmacy 38.9477; Globulin 3.2 g/dL (1.3-4.6); Glomerular Filtration Rate 24.7 mL/min (90-130); Glucose 111 mg/dL (65-115); Immunoglobulin IGA 67 mg/dL (70-400); Immunoglobulin IGG 1111 mg/dL (700-1600); Immunoglobulin IGM 42 mg/dL (40-230); Osmolality Calculated 304 mOsm/kg (285-295); Potassium 5.8 mmol/L (3.5-5.1); Sodium 141 mmol/L (136-145); Total Bilirubin 0.3 mg/dL (0.15-1.2); Total Protein 7.2 g/dL (6.6-8.7)
[2023-12-04 10:20] LABS: PROTEIN, TOTAL 6.8 g/dL (6.1-8.1)
[2023-12-04 14:40] LABS: KAPPA LIGHT CHAIN, FREE, SERUM 25.8 mg/L (3.3-19.4); KAPPA/LAMBDA LIGHT CHAINS FREE 0.36 (0.26-1.65); LAMBDA LIGHT CHAIN, FREE, SERU 70.7 mg/L (5.7-26.3)
[2023-12-10 15:39] LABS: ABNORMAL PROTEIN BAND 1 0.7 g/dL (NONE DETECTED); ALPHA 1 GLOBULIN 0.4 g/dL (0.2-0.3); ALPHA 2 GLOBULIN 0.8 g/dL (0.5-0.9); BETA 1 GLOBULIN 0.4 g/dL (0.4-0.6); BETA 2 GLOBULIN 0.3 g/dL (0.2-0.5)
== END 2023-12-05 23:59 | disposition home or self-care (01) ==
PROVIDERS: Nurse Practitioner Family; Registered Nurse; PCP Family Medicine; Visit Provider Internal Medicine Medical Oncology
DX: D50.8 Other iron deficiency anemias (principal); E11.22 Type 2 diabetes mellitus with diabetic chronic kidney disease; D63.1 Anemia in chronic kidney disease; Z87.891 Personal history of nicotine dependence; Z79.84 Long term (current) use of oral hypoglycemic drugs; D47.2 Monoclonal gammopathy; Z98.890 Other specified postprocedural states; C90.00 Multiple myeloma not having achieved remission; Z79.899 Other long term (current) drug therapy; Z53.9 Procedure and treatment not carried out, unspecified reason
CPT/HCPCS: 36415; 80053; 82044; 82306; 82310; 82607; 82728; 82746; 82784; 83540; 83550; 83615; 83883; 83970; 84155; 84165; 85025; 85045; 86334; 99214

== ENCOUNTER 2023-12-14 09:44 | Outpatient (CLI) | payer MEDICARE, OTHER, SELFPAY ==
[2023-12-17 15:28] LABS: CREATININE, 24 HOUR URINE 1.86 g/24 h (0.50-2.15); PROTEIN, TOTAL, 24 HR UR 116 mg/24 h (<150); Protein/Creatinine Ratio 0.063 (<0.150); Protein/Creatinine Ratio 63 mg/g creat (<150)
[2023-12-18 14:39] LABS: ALBUMIN 0 %; ALPHA-1-GLOBULINS 0 %; ALPHA-2-GLOBULINS 0 %; BETA GLOBULINS 0 %; GAMMA GLOBULINS 0 %
== END 2023-12-14 09:45 | disposition home or self-care (01) ==
LOC: LAB 09:46
PROVIDERS: Internal Medicine; PCP Family Medicine; Visit Provider Nurse Practitioner Family
DX: C90.00 Multiple myeloma not having achieved remission (principal)
CPT/HCPCS: 84156; 84166; 86335

== ENCOUNTER → 2023-12-20 08:51 | Outpatient (BNVA) | payer MEDICARE, OTHER, SELFPAY | PROVIDERS: PCP Family Medicine; Visit Provider Physician Assistant | DX: G56.02 Carpal tunnel syndrome, left upper limb (principal); M65.322 Trigger finger, left index finger | CPT/HCPCS: 73130; 99204 ==

== ENCOUNTER → 2023-12-31 13:57 | Outpatient (BNVA) | payer MEDICARE, OTHER, SELFPAY | PROVIDERS: PCP Family Medicine; Visit Provider Internal Medicine | DX: R07.9 Chest pain, unspecified (principal); I11.0 Hypertensive heart disease with heart failure; I50.33 Acute on chronic diastolic (congestive) heart failure; E78.2 Mixed hyperlipidemia; E11.9 Type 2 diabetes mellitus without complications; M19.079 Primary osteoarthritis, unspecified ankle and foot; Z87.891 Personal history of nicotine dependence | CPT/HCPCS: 99213 ==

== ENCOUNTER 2024-01-30 12:17 | Oncology outpatient (recurring) (ONCR) | payer MEDICARE, OTHER, SELFPAY ==
[2024-01-30 12:48] LABS: Basophils # 0.1 10^3/uL (0.0-0.1); Basophils % 0.8 %; Eosinophils # 0.5 10^3/uL (0.0-0.8); Eosinophils % 3.8 %; Hematocrit 29.6 % (36-47); Lymphocytes # 1.8 10^3/uL (0.8-4.8); Lymphocytes % 14.6 %; Mean Corpuscular HGB Conc 31.1 g/dL (30-55); Mean Corpuscular Hemoglobin 28.9 pg (27-33); Mean Corpuscular Volume 93.1 fl (85-98); Mean Platelet Volume 10.1 fL (7.4-10.4); Monocytes # 1.1 10^3/uL (0.2-0.9); Monocytes % 8.4 %; Neutrophils # 9.07 10^3/uL (1.8-7.7); Neutrophils % 71.8 %; Nucleated Red Blood Cells % 0 %; Platelet Count 268 10^3/cmm (157-399); Red Blood Count 3.18 10^6/uL (3.85-5.65); Red Cell Distribution Width 13.5 % (12.1-15.1); White Blood Count 12.63 10^3/uL (3.29-11.43)
[2024-01-30 13:26] LABS: Alanine Aminotransferase 17 U/L (0-33); Albumin Level 4.1 g/dL (3.5-5.2); Alkaline Phosphatase 74 U/L (35-105); Aspartate Amino Transferase 16 U/L (0-32); Blood Urea Nitrogen 37 mg/dL (8-23); Calcium 8.5 mg/dL (8.5-10.5); Carbon Dioxide 24 mmol/L (22-29); Chloride 102 mmol/L (98-107); Globulin 2.9 g/dL (1.3-4.6); Glomerular Filtration Rate 26.2 mL/min (90-130); Glucose 108 mg/dL (65-115); Iron 29 ug/dL (37-145); Lactate Dehydrogenase 235 U/L (135-214); Osmolality Calculated 295 mOsm/kg (285-295); Percent Saturation 10.2 % (20-50); Sodium 138 mmol/L (136-145); Thyroid Stimulating Hormone 0.66 uIU/mL (0.27-4.20); Total Bilirubin 0.3 mg/dL (0.15-1.2); Total Iron Binding Capacity 282 mcg/dl; Unsaturated Iron Binding 253 ug/dL (112-347)
[2024-01-31 09:50] LABS: PROTEIN, TOTAL 6.6 g/dL (6.1-8.1)
[2024-02-01 11:48] LABS: ABNORMAL PROTEIN BAND 1 0.7 g/dL (NONE DETECTED); ALBUMIN 3.7 g/dL (3.8-4.8); ALPHA 1 GLOBULIN 0.4 g/dL (0.2-0.3); ALPHA 2 GLOBULIN 0.8 g/dL (0.5-0.9); BETA 1 GLOBULIN 0.4 g/dL (0.4-0.6); BETA 2 GLOBULIN 0.3 g/dL (0.2-0.5); GAMMA GLOBULIN 0.9 g/dL (0.8-1.7)
[2024-02-04 16:19] LABS: KAPPA LIGHT CHAIN, FREE, SERUM 23.4 mg/L (3.3-19.4); LAMBDA LIGHT CHAIN, FREE, SERU 78.6 mg/L (5.7-26.3)
== END 2024-02-04 23:59 | disposition home or self-care (01) ==
PROVIDERS: Nurse Practitioner; Visit Provider Internal Medicine Medical Oncology
DX: E11.22 Type 2 diabetes mellitus with diabetic chronic kidney disease; D63.1 Anemia in chronic kidney disease; Z87.891 Personal history of nicotine dependence; Z79.84 Long term (current) use of oral hypoglycemic drugs; D47.2 Monoclonal gammopathy; Z79.899 Other long term (current) drug therapy; N18.32 Chronic kidney disease, stage 3b; E78.2 Mixed hyperlipidemia; C90.00 Multiple myeloma not having achieved remission
CPT/HCPCS: 36415; 80053; 83540; 83550; 83615; 83883; 84155; 84165; 84443; 85025; 99214

== ENCOUNTER 2024-01-31 09:29 | Day surgery (SDC) | payer MEDICARE, OTHER, SELFPAY ==
[2024-01-31] VITALS (9 sets, daily range): BP systolic 139–182; BP diastolic 59–76; PULSE 59–76; RESP 14–21; TEMP 36.1–36.5; O2SAT 96–98; BMI 58.0
--- NOTE | 2024-01-31 10:03 | W.PM.OPSFHP ---
Same Day Surgery H&P Indication for Procedure/HPI DATE OF PROCEDURE: January 31, 2024 CHIEF COMPLAINT/INDICATIONFOR SURGICAL PROCEDURE: Left carpal tunnel syndrome PREOP DIAGNOSIS: Left carpal tunnel syndrome PLANNED PROCEDURE: Operation Date: 01/31/24 11:40 Proposed Procedures p Carpal Tunnel Release(Left) - Gavin Rubio DO Medications/Allergies* Home Medications Medication Instructions Recorded Confirmed Type mvi,min-folic acid 400 mcg-black 1 tab PO BEDTIME 02/23/21 01/30/24 History coh 40 mg-isoflav 40 mg-jujube tablet (Estroven Menopause) acetaminophen 325 mg tablet 650 mg PO BID Pain 01/04/23 01/30/24 History (Tylenol) turmeric 400 mg capsule 400 mg PO DAILY 01/04/23 01/30/24 History vitamin B complex (B 1 tab PO DAILY 01/04/23 01/30/24 History Complex-Vitamin B12 tablet) furosemide 40 mg tablet 40 mg PO DAILY 12/31/23 01/30/24 History amlodipine 5 mg tablet 5 mg PO DAILY 01/30/24 01/30/24 History lisinopril 40 mg tablet 40 mg PO DAILY 01/30/24 01/30/24 History metformin 750 mg tablet,extended 750 mg PO BID 01/30/24 01/30/24 History release 24 hr rosuvastatin 5 mg tablet 5 mg PO BEDTIME 01/30/24 01/30/24 History Allergies/Adverse Reactions Allergy/AdvReac Type Severity Reaction Status Date / Time No Known Allergies Allergy Verified 01/30/24 14:24 Pertinent History/Comorbid Conditions* Medical History (Updated 12/20/23 @ 09:28 by GELY Bone) Multiple myeloma Chronic kidney disease Degenerative arthritis Obstructive sleep apnea Anemia CHF (congestive heart failure) Type 2 diabetes mellitus Hyperlipidemia Essential hypertension Surgical History (Updated 02/18/23 @ 09:03 by Narayan French MD) History of bone marrow biopsy (09/11/22) History of cholecystectomy History of hysterectomy with bilateral oophorectomy History of tubal ligation History of tonsillectomy History of appendectomy History of bilateral cataract extraction Family History (Updated 07/24/22 @ 13:15 by Daily Wong LPN) Diabetes Mother Sister CAD (coronary artery disease) Mother Sister Suicide Father Cancer Sister Hypertension Mother Social History Smoking and tobacco/nicotine status: former use of tobacco/nicotine Quit status (tobacco/nicotine): has quit using Year quit tobacco: 2002 Former quit date comment: Smoked from age 8 to 2003. Second hand smoke exposure: No Alcohol intake: never Substance/Drug Use: never Adopted: No Caregiver/support person: No Lives independently: Yes Household members: spouse Marital status: Pertinent Exam Findings alert, oriented x 3, operative site marked and procedure specific exam findings Left upper extremity examination demonstrates tenderness to palpation over the carpal tunnel as well as with the positive Tinel's positive median nerve compression test Refer to orthopedic examination on 12/20/2023 for detailed orthopedic examination: Left Hand exam-positive Tinel's and positive Phalen's test. no thenar atrophy, but thenar muscle weakness noted. Full range of motion in fingers and wrist and fingers are warm and well-perfused with normal cap refill under 2 seconds. Radial pulse 2+, no intrinsic muscle weakness noted. A1 rama tenderness over index finger. No mechanical locking or catching of any fingers. Elbow exam-negative Tinel's test Recommendations Surgery/Procedure today Other Plans: Plan to proceed to the OR today for left carpal tunnel release surgery. She understands the ins and outs of the procedure the risk benefits complication alternatives with surgery and through shared decision-making elects proceed with surgical intervention all questions have been answered at this time. She had a previous right carpal tunnel release surgery which is done well and symptoms feel comparable this time with more numbness tingling/burning sensations to her thumb index and middle finger. All questions answered this time we will proceed with OR today. Coding Level of Care Code Acute Code for Ruperto Zepeda
[2024-01-31] MEDS: sodium chloride 0.9% 1,000 ML 30 ML IV (10:25)
[2024-01-31 10:26] LABS: Glucose Point of Care 124 mg/dL (70-110)
[2024-01-31] MEDS: acetaminophen 1,000 MG/100 ML PIGGYBACK 400 MG IV (10:26)
[2024-01-31] MEDS: ketorolac 30 mg/mL INJ IVP (10:29)
--- NOTE | 2024-01-31 10:54 | ANES.PREANE2 ---
Pre-Anesthetic Assessment Height/Weight: Height 1.63 m Weight 153.314 kg Temp Pulse Resp BP Pulse Ox O2 Del Method 97.7 F 75 18 182/59 98 Room Air 01/31/24 09:56 01/31/24 09:56 01/31/24 09:56 01/31/24 09:56 01/31/24 09:56 01/31/24 09:57 Preop Diagnosis: Left carpal tunnel syndrome Operation Date: 01/31/24 11:40 Proposed Procedures p Carpal Tunnel Release(Left) - Gavin Rubio DO Familial anesthetic complications: None Was Beta Bill taken within 24 hours: N/A Was Clonidine taken within 24 hours: N/A Last intake: Intake Last Liquid Date 01/30/24 Last Liquid Time 21:00 Last Solid Date 01/30/24 Last Solid Time 18:00 Social No alcohol and No tobacco Exam alert, oriented x 3, clear to auscultation bilaterally and regular rate & rhythm Airway Mallampati: Class II Dentition: false Pulmonary Asthma and Sleep Apnea CV/HEM Congestive Heart Failure and Hypertension Chronic Renal Insufficiency Metabolic Diabetes Mellitus and Morbid Obesity Anesthetic Plan ASA status: 3 Anesthesia: MAC Risk of > 500 ml blood loss (7ml/kg in children): No Medications/Allergies Home Medications Medication Instructions Recorded Confirmed Last Taken Type mvi,min-folic acid 400 mcg-black 1 tab PO BEDTIME 02/23/21 01/30/24 09/10/22 History coh 40 mg-isoflav 40 mg-jujube tablet (Estroven Menopause) albuterol sulfate 90 mcg/actuation 2 puff inhalation QID PRN 04/25/21 01/30/24 09/10/22 Rx aerosol inhaler (ProAir HFA) shortness of breath or wheezing #6.7 grams nitroglycerin 0.4 mg sublingual 0.4 mg sublingual Q5M PRN chest 09/05/21 01/30/24 Unknown Rx tablet pain #30 tabs albuterol sulfate 2.5 mg/3 mL 2.5 mg (3 mL) inhalation QID PRN 03/29/22 01/30/24 09/10/22 Rx (0.083 %) solution for nebulization shortness of breath or wheezing #75 mL acetaminophen 325 mg tablet 650 mg PO BID Pain 01/04/23 01/30/24 01/24/24 History (Tylenol) turmeric 400 mg capsule 400 mg PO DAILY 01/04/23 01/30/24 Unknown History vitamin B complex (B 1 tab PO DAILY 01/04/23 01/30/24 01/30/24 History Complex-Vitamin B12 tablet) BIPAP supplies #1 ea 05/08/23 01/30/24 Unknown Rx isosorbide mononitrate 30 mg 30 mg PO DAILY #90 tabs 08/06/23 01/31/24 01/31/24 Rx tablet,extended release 24 hr furosemide 40 mg tablet 40 mg PO DAILY 12/31/23 01/30/24 01/30/24 History amlodipine 5 mg tablet 5 mg PO DAILY 01/30/24 01/31/24 01/31/24 History ferrous sulfate 325 mg (65 mg 325 mg PO BID #180 tabs 01/30/24 01/30/24 Unknown Rx iron) tablet (Iron (ferrous sulfate)) lisinopril 40 mg tablet 40 mg PO DAILY 01/30/24 01/30/24 01/30/24 History metformin 750 mg tablet,extended 750 mg PO BID 01/30/24 01/30/24 01/24/24 History release 24 hr rosuvastatin 5 mg tablet 5 mg PO BEDTIME 01/30/24 01/30/24 01/29/24 History Allergies Allergy/AdvReac Type Severity Reaction Status Date / Time No Known Allergies Allergy Verified 01/30/24 14:24 Current Medications Generic Name Dose Route Start Last Admin Trade Name Freq PRN Reason Stop Dose Admin Sodium Chloride 1,000 mls @ 30 mls/hr 01/31/24 09:45 01/31/24 10:25 Sodium Chloride 0.9% IV 02/01/24 09:44 30 mls/hr .Q24H BETTY Administration PFSH Anesthesia Medical History Multiple myeloma Chronic kidney disease Degenerative arthritis Obstructive sleep apnea Anemia CHF (congestive heart failure) Type 2 diabetes mellitus Hyperlipidemia Essential hypertension Surgical History History of bone marrow biopsy (09/11/22) History of cholecystectomy History of hysterectomy with bilateral oophorectomy History of tubal ligation History of tonsillectomy History of appendectomy History of bilateral cataract extraction Family History Mother CAD (coronary artery disease) Diabetes Hypertension Sister CAD (coronary artery disease) Cancer Diabetes Father Suicide Social History Smoking and tobacco/nicotine status: former use of tobacco/nicotine Quit status (tobacco/nicotine): has quit using Year quit tobacco: 2002 Former quit date comment: Smoked from age 8 to 2002. Second hand smoke exposure: No Alcohol intake: never Substance/Drug Use: never Adopted: No Caregiver/support person: No Lives independently: Yes Household members: spouse Marital status: Data Anesthesia Cardiac Studies: Echocardiogram 11/07/23 Sestamibi Stress Test (Cardiology) 11/13/19
[2024-01-31] MEDS: ceFAZolin 2,000 MG in sodium chloride 0.9% (plus) 50 ML 100 MG IV (11:34)
[2024-01-31] MEDS: ceFAZolin 2,000 mg SDV 1000 MG IVP (11:40)
[2024-01-31] MEDS: lidocaine-epi 1% 20 mL INJ 5 ML INJECTION (11:58)
[2024-01-31] MEDS: ROPivacaine 0.5% SDV 30 mL 25 MG INJECTION (11:58)
--- NOTE | 2024-01-31 12:17 | P.BOP_ITS ---
Date of Procedure: 01/31/2024 Surgeon: Gavin Rubio DO Tire Assembler(s): None Procedure(s) performed: Left carpal tunnel release Findings of the procedure(s): Patient found to have left carpal tunnel syndrome underwent procedure as planned without issues or complications Estimated blood loss: 2 mL Specimen(s) removed: None Post-operative diagnosis: Left carpal tunnel syndrome
--- NOTE | 2024-01-31 12:18 | PM.OP ---
Operative Report Date of procedure: January 31, 2024 Surgeon: Gavin Rubio DO Procedure: Preop Diagnosis: Left Carpal Tunnel Syndrome Post-op diagnosis: Same Procedure done: 1. Left carpal tunnel release Surgeon: Gavin Rubio DO Anesthesia: MAC (Local) Estimated blood loss: 2 mL Tourniquet time 6 minutes IV fluids: See anesthesia record Complications: None Findings: See operative report narrative Condition: stable Disposition: same day Brief History: Patient is a pleasant 68 year-old female with left carpal tunnel syndrome. Patient has been worked up in the outpatient setting findings and physical examination consistent with this. Patient had previous carpal tunnel release on the right side and had done well with this symptoms are the same and she wishes to proceed with surgical intervention for left carpal tunnel release. We detailed out patient's risk benefits complication alternatives with surgical and nonsurgical treatment options. Through shared decision making, patient agrees to proceed with surgical intervention of the left carpal tunnel release . Patient understands and agrees with current plan. All questions answered. Patient elects to proceed with surgical intervention. Procedure: Patient seen and evaluated in the preoperative holding area. Consent was reviewed and signed with patient. Correct extremity was marked. Patient was seen evaluated by the anesthesia department once cleared for surgery was brought back to the operative suite. Patient was kept on [facility] in supine position all bony prominences were well-padded patient properly secured to the bed. Left upper extremity was then placed onto an armboard. A nonsterile tourniquet was applied to the left upper arm. Patient underwent anesthesia per the anesthesia department. Patient's left upper extremity was then prepped and draped in standard orthopedic fashion. Final timeout performed. Patient received appropriate preoperative antibiotics. Under sterile aseptic technique patient received local anesthesia over the preplanned carpal tunnel incision site. Esmarch was used to exsanguinate the left upper extremity and tourniquet was insufflated to 250 mmHg. A standard mini open left carpal tunnel incision was made. Starting distally at Moran's cardinal line in line with the fourth ray extending proximally distal to the wrist crease centered over the carpal tunnel. Sharp scalpel incision was made through skin and subcutaneous tissue. Self-retaining retractor was placed and the palmar fascia was identified. This was then split longitudinally and direct visualization of the transverse carpal ligament was then made. I then utilizing scalpel feathered through the transverse carpal ligament until I entered the floor of the transverse carpal tunnel ligament into the carpal tunnel. Next I switched to dissection scissors and completed my release of the transverse carpal ligament distally with care to protect the recurrent motor branch. I completely released into the palmar fat and until no entrapment was noted distally. Care was made to protect the superficial palmar arch during my distal dissection. Next, nasal speculum placed proximally for retraction of soft tissue on top of the Transverse carpal ligament. Next the contents of the carpal tunnel where protected and and subsequently utilizing dissection scissors under loupe magnification completely released the transverse carpal ligament proximally into the antebrachial fascia. Care was made to protect the palmar cutaneous branch by keeping my scissors curved ulnarly. Once completely released, I then placed my Center and had appropriate decompression of the carpal tunnel proximally as well as distally. I then inspected the contents of the carpal tunnel which showed an hourglass shape of the median nerve showing its compression. No masses were noted. Tendons appeared healthy. Wound was then thoroughly irrigated. Tourniquet deflated. Hemostasis satisfactory with bipolar electrocautery. I then closed the incision with interrupted nylon stitches. Xeroform 4 x 4's and a bulky soft dressing was applied to the left upper extremity. Patient was then awakened from anesthesia and taken to PACU in stable condition. Patient tolerated procedure without complications. Disposition: Patient taken to PACU in stable condition recovering well. Dressing clean dry and intact. Patient will receive appropriate discharge instructions as well as pain medication postoperatively. Patient to follow-up with me in the office in 2 weeks. They understand they may be weightbearing as tolerated to the left hand. Patient should keep incision clean dry and intact. Patient understands if any questions or concerns may contact the office.
--- NOTE | 2024-01-31 13:30 | ANE.PACU2 ---
Inpatient post-anesthesia follow up: Airway intact: Yes Vital signs: Temperature 97.1 F Pulse Rate 62 Respiratory Rate 17 Blood Pressure 177/72 Pulse Oximetry 97 Oxygen Delivery Me thod Room Air Oxygen Flow Rate Fraction of Inspir ed Oxygen Hydration adequate: Yes Nausea and vomiting: No Pain level: 1 Mental status: Baseline
== END 2024-01-31 13:48 | disposition home or self-care (01) ==
PROVIDERS: Visit Provider Student in an Organized Health Care Education/Training Program
PROC: (CPT 64721; principal; 2024-01-31 11:40)
DX: G56.02 Carpal tunnel syndrome, left upper limb (principal); E11.22 Type 2 diabetes mellitus with diabetic chronic kidney disease; I13.0 Hypertensive heart and chronic kidney disease with heart failure and stage 1 through stage 4 chronic kidney disease, or unspecified chronic kidney disease; N18.9 Chronic kidney disease, unspecified; G47.33 Obstructive sleep apnea (adult) (pediatric); I50.9 Heart failure, unspecified; E78.5 Hyperlipidemia, unspecified; Z87.891 Personal history of nicotine dependence; E66.01 Morbid (severe) obesity due to excess calories; Z68.43 Body mass index [BMI] 50.0-59.9, adult
CPT/HCPCS: 64721; 36416; 82962; J0131; J0690; J1885; J2704; J2795; J7030

== ENCOUNTER → 2024-02-12 08:19 | Outpatient (BNVA) | payer MEDICARE, OTHER, SELFPAY | PROVIDERS: Visit Provider Physician Assistant | DX: Z98.890 Other specified postprocedural states (principal) | CPT/HCPCS: 99024 ==

== ENCOUNTER 2024-03-06 10:51 | Outpatient (CLI) | payer MEDICARE, OTHER, SELFPAY ==
[2024-03-06 11:44] LABS: Basophils # 0.1 10^3/uL (0.0-0.1); Basophils % 0.9 %; Eosinophils # 0.4 10^3/uL (0.0-0.8); Eosinophils % 4.2 %; Hematocrit 31.5 % (36-47); Lymphocytes # 1.3 10^3/uL (0.8-4.8); Lymphocytes % 13.6 %; Mean Corpuscular HGB Conc 31.1 g/dL (30-55); Mean Corpuscular Hemoglobin 29.8 pg (27-33); Mean Corpuscular Volume 95.7 fl (85-98); Mean Platelet Volume 10.2 fL (7.4-10.4); Monocytes # 0.8 10^3/uL (0.2-0.9); Monocytes % 7.8 %; Neutrophils # 7.14 10^3/uL (1.8-7.7); Neutrophils % 72.8 %; Nucleated Red Blood Cells % 0 %; Platelet Count 262 10^3/cmm (157-399); Red Blood Count 3.29 10^6/uL (3.85-5.65); Red Cell Distribution Width 13.2 % (12.1-15.1); White Blood Count 9.82 10^3/uL (3.29-11.43)
[2024-03-06 12:04] LABS: Anion Gap 13.5 (5-19); Blood Urea Nitrogen 26 mg/dL (8-23); Calcium 9.2 mg/dL (8.5-10.5); Carbon Dioxide 26 mmol/L (22-29); Chloride 103 mmol/L (98-107); Glomerular Filtration Rate 27.9 mL/min (90-130); Glucose 142 mg/dL (65-115); Potassium 4.5 mmol/L (3.5-5.1); Sodium 138 mmol/L (136-145)
[2024-03-06 12:06] LABS: Creatinine Urine, Random 50 mg/dL (28-217); Microalbum Creatinine Ratio Ur 20 mg/dL (0-20); Microalbumin Random Urine 1 ug/dL (0-20)
[2024-03-06 12:10] LABS: Parathyroid Hormone 51.8 pg/mL (15-65)
[2024-03-06 12:18] LABS: 25 Hydroxy Vitamin D 27 ng/mL (30-100)
== END 2024-03-06 10:52 | disposition home or self-care (01) ==
LOC: LAB 10:54
PROVIDERS: Visit Provider Registered Nurse
DX: N18.32 Chronic kidney disease, stage 3b (principal); D63.1 Anemia in chronic kidney disease
CPT/HCPCS: 80069; 82044; 82306; 82310; 83970; 85025

== ENCOUNTER 2024-03-13 12:00 | Outpatient (CLI) | payer MEDICARE, OTHER, SELFPAY ==
--- NOTE | 2024-03-13 12:03 | MM_ITS ---
WS: [id number] BILATERAL SCREENING DIGITAL TOMOSYNTHESIS MAMMOGRAM WITH CAD HISTORY: SCREENING COMPARISON: 02/13/2023, 02/10/2022 Bilateral CC and MLO views with tomosynthesis and synthetic mammography submitted. Computer aided det ection analyzed. Breast composition: There are scattered areas of fibroglandular density. No suspicious masses, microc alcifications or architectural distortion. Scattered calcifications. No mass or distortion. MM/MM scr BI tomosynthesis [id number] IMPRESSION: BI-RADS: 2 - Benign. FOLLOW UP: 1 Year Follow-up
== END 2024-03-13 12:01 | disposition home or self-care (01) ==
LOC: RAD 12:01
PROVIDERS: PCP Family Medicine; Visit Provider Family Medicine
DX: Z12.31 Encounter for screening mammogram for malignant neoplasm of breast (principal); R92.323 Mammographic fibroglandular density, bilateral breasts; R92.1 Mammographic calcification found on diagnostic imaging of breast
CPT/HCPCS: 77063; 77067

== ENCOUNTER 2024-03-19 10:14 | Oncology outpatient (recurring) (ONCR) | payer MEDICARE, OTHER, SELFPAY ==
[2024-03-19 11:14] LABS: Basophils # 0.1 10^3/uL (0.0-0.1); Basophils % 0.8 %; Eosinophils # 0.4 10^3/uL (0.0-0.8); Eosinophils % 4.2 %; Hematocrit 30.6 % (36-47); Lymphocytes # 1.8 10^3/uL (0.8-4.8); Lymphocytes % 17.4 %; Mean Corpuscular HGB Conc 30.7 g/dL (30-55); Mean Corpuscular Volume 94.4 fl (85-98); Mean Platelet Volume 10.2 fL (7.4-10.4); Monocytes # 0.9 10^3/uL (0.2-0.9); Monocytes % 8.7 %; Neutrophils % 68.4 %; Nucleated Red Blood Cells % 0 %; Platelet Count 276 10^3/cmm (157-399); Red Blood Count 3.24 10^6/uL (3.85-5.65); Red Cell Distribution Width 13.2 % (12.1-15.1); White Blood Count 10.09 10^3/uL (3.29-11.43)
[2024-03-19 11:39] LABS: Alanine Aminotransferase 10 U/L (0-33); Alkaline Phosphatase 83 U/L (35-105); Anion Gap 15.2 (5-19); Aspartate Amino Transferase 19 U/L (0-32); Blood Urea Nitrogen 33 mg/dL (8-23); Calcium 8.6 mg/dL (8.5-10.5); Carbon Dioxide 24 mmol/L (22-29); Chloride 106 mmol/L (98-107); Globulin 2.8 g/dL (1.3-4.6); Glomerular Filtration Rate 24.7 mL/min (90-130); Glucose 129 mg/dL (65-115); Osmolality Calculated 299 mOsm/kg (285-295); Potassium 5.2 mmol/L (3.5-5.1); Sodium 140 mmol/L (136-145); Total Bilirubin 0.2 mg/dL (0.15-1.2); Total Protein 6.8 g/dL (6.6-8.7)
[2024-03-19 11:41] LABS: Creatinine Clr Calc Pharmacy 39.8825
[2024-03-19 12:45] LABS: Ferritin 314 ng/mL (15-150); Iron 44 ug/dL (37-145); Percent Saturation 16.7 % (20-50); Total Iron Binding Capacity 263 mcg/dl; Unsaturated Iron Binding 219 ug/dL (112-347)
== END 2024-04-05 23:59 | disposition home or self-care (01) ==
PROVIDERS: Nurse Practitioner; PCP Family Medicine; Visit Provider Internal Medicine Medical Oncology
DX: D50.8 Other iron deficiency anemias (principal); E11.22 Type 2 diabetes mellitus with diabetic chronic kidney disease; D63.1 Anemia in chronic kidney disease; Z87.891 Personal history of nicotine dependence; Z79.84 Long term (current) use of oral hypoglycemic drugs; D47.2 Monoclonal gammopathy; Z98.890 Other specified postprocedural states; C90.00 Multiple myeloma not having achieved remission; Z79.899 Other long term (current) drug therapy; N18.32 Chronic kidney disease, stage 3b
CPT/HCPCS: 36415; 80053; 82728; 83540; 83550; 85025; 99214

== ENCOUNTER 2024-04-01 08:46 | Outpatient (CLI) | payer MEDICARE, OTHER, SELFPAY ==
[2024-04-01 10:04] LABS: Free T4 Free Thyroxine 0.92 ng/dL (0.82-1.77); Thyroid Stimulating Hormone 1.54 uIU/mL (0.27-4.20)
[2024-04-01 10:09] LABS: Estmated Average Glucose 111; Hemoglobin A1C 5.5 % (4.0-6.0)
[2024-04-01 10:30] LABS: Iron 50 ug/dL (37-145)
== END 2024-04-01 08:47 | disposition home or self-care (01) ==
LOC: LAB 08:47
PROVIDERS: PCP Family Medicine; Visit Provider Nurse Practitioner
DX: E11.9 Type 2 diabetes mellitus without complications (principal); R53.83 Other fatigue; C90.00 Multiple myeloma not having achieved remission; D50.8 Other iron deficiency anemias
CPT/HCPCS: 83036; 83540; 84439; 84443

== ENCOUNTER 2024-05-06 10:36 | Oncology outpatient (recurring) (ONCR) | payer MEDICARE, OTHER, SELFPAY ==
[2024-05-06 11:23] LABS: Iron 47 ug/dL (37-145)
== END 2024-05-06 23:59 | disposition home or self-care (01) ==
PROVIDERS: Nurse Practitioner; PCP Family Medicine; Visit Provider Internal Medicine Medical Oncology
DX: E11.22 Type 2 diabetes mellitus with diabetic chronic kidney disease; I13.0 Hypertensive heart and chronic kidney disease with heart failure and stage 1 through stage 4 chronic kidney disease, or unspecified chronic kidney disease; N18.32 Chronic kidney disease, stage 3b; I50.9 Heart failure, unspecified; D63.1 Anemia in chronic kidney disease; D47.2 Monoclonal gammopathy; Z79.899 Other long term (current) drug therapy; Z87.891 Personal history of nicotine dependence; Z79.84 Long term (current) use of oral hypoglycemic drugs; E78.2 Mixed hyperlipidemia
CPT/HCPCS: 36415; 83540; 99214

== ENCOUNTER 2024-06-30 11:14 | Outpatient (CLI) | payer MEDICARE, OTHER, SELFPAY ==
[2024-06-30 12:07] LABS: Basophils # 0.1 10^3/uL (0.0-0.1); Basophils % 0.9 %; Eosinophils # 0.4 10^3/uL (0.0-0.8); Hematocrit 30.1 % (36-47); Lymphocytes # 1.3 10^3/uL (0.8-4.8); Lymphocytes % 15.2 %; Mean Corpuscular HGB Conc 29.9 g/dL (30-55); Mean Corpuscular Hemoglobin 28.7 pg (27-33); Mean Corpuscular Volume 95.9 fl (85-98); Mean Platelet Volume 10.4 fL (7.4-10.4); Monocytes # 0.8 10^3/uL (0.2-0.9); Monocytes % 8.8 %; Neutrophils # 6.16 10^3/uL (1.8-7.7); Neutrophils % 70.5 %; Nucleated Red Blood Cells % 0 %; Platelet Count 246 10^3/cmm (157-399); Red Blood Count 3.14 10^6/uL (3.85-5.65); Red Cell Distribution Width 13.8 % (12.1-15.1); White Blood Count 8.74 10^3/uL (3.29-11.43)
[2024-06-30 12:28] LABS: Albumin Level 4.1 g/dL (3.5-5.2); Blood Urea Nitrogen 37 mg/dL (8-23); Calcium 9.1 mg/dL (8.5-10.5); Carbon Dioxide 23 mmol/L (22-29); Chloride 107 mmol/L (98-107); Glomerular Filtration Rate 24.7 mL/min (90-130); Glucose 89 mg/dL (65-115); Phosphorus 3.1 mg/dL (2.5-4.5); Sodium 143 mmol/L (136-145)
[2024-06-30 12:42] LABS: Creatinine Urine, Random 127 mg/dL (28-217); Microalbum Creatinine Ratio Ur 8 mg/dL (0-20); Microalbumin Random Urine 1 ug/dL (0-20)
[2024-06-30 12:50] LABS: Parathyroid Hormone 74.2 pg/mL (15-65)
== END 2024-06-30 11:15 | disposition home or self-care (01) ==
LOC: LAB 11:29
PROVIDERS: PCP Family Medicine; Visit Provider Registered Nurse
DX: N18.4 Chronic kidney disease, stage 4 (severe) (principal)
CPT/HCPCS: 80069; 82044; 82310; 83970; 85025

== ENCOUNTER → 2024-07-10 14:49 | Outpatient (BNVA) | payer MEDICARE, OTHER, SELFPAY | PROVIDERS: PCP Family Medicine; Visit Provider Internal Medicine | DX: I11.0 Hypertensive heart disease with heart failure (principal); I50.33 Acute on chronic diastolic (congestive) heart failure; E78.2 Mixed hyperlipidemia; E11.9 Type 2 diabetes mellitus without complications; M19.079 Primary osteoarthritis, unspecified ankle and foot | CPT/HCPCS: 99214 ==

== ENCOUNTER 2024-07-18 10:56 | Outpatient (CLI) | payer MEDICARE, OTHER, SELFPAY ==
--- NOTE | 2024-07-18 12:07 | XR_ITS ---
WS: [id number] Chest 2 views, 07/18/2024 Clinical Data: hypoxia Comparison: Portable chest, 05/25/2022 Findings: No nodules, masses or effusions are seen. The heart is normal. The pulmonary vascularity is not increased. No pneumonia or pneumothorax is seen. The aortic arch and descending thoracic aorta show calcification and tortuosity. XR/XR chest 2V* [id number] Impression: Atherosclerosis.
== END 2024-07-18 10:57 | disposition home or self-care (01) ==
PROVIDERS: PCP Family Medicine; Visit Provider Family Medicine
DX: R06.09 Other forms of dyspnea (principal); R09.02 Hypoxemia; I70.0 Atherosclerosis of aorta; R93.89 Abnormal findings on diagnostic imaging of other specified body structures
CPT/HCPCS: 71046

== ENCOUNTER 2024-08-04 10:30 | Oncology outpatient (recurring) (ONCR) | payer MEDICARE, OTHER, SELFPAY ==
[2024-07-28 09:38] LABS: Basophils # 0.1 10^3/uL (0.0-0.1); Basophils % 0.8 %; Eosinophils # 0.4 10^3/uL (0.0-0.8); Eosinophils % 4.3 %; Hematocrit 29.3 % (36-47); Lymphocytes # 1.4 10^3/uL (0.8-4.8); Lymphocytes % 14.4 %; Mean Corpuscular Hemoglobin 28.4 pg (27-33); Mean Corpuscular Volume 94.5 fl (85-98); Mean Platelet Volume 10.2 fL (7.4-10.4); Monocytes # 0.8 10^3/uL (0.2-0.9); Monocytes % 7.9 %; Neutrophils # 6.87 10^3/uL (1.8-7.7); Nucleated Red Blood Cells % 0 %; Platelet Count 224 10^3/cmm (157-399); Red Cell Distribution Width 13.7 % (12.1-15.1); White Blood Count 9.56 10^3/uL (3.29-11.43)
[2024-07-28 10:14] LABS: Alanine Aminotransferase 12 U/L (0-33); Albumin Level 3.9 g/dL (3.5-5.2); Alkaline Phosphatase 67 U/L (35-105); Anion Gap 17.2 (5-19); Aspartate Amino Transferase 15 U/L (0-32); Blood Urea Nitrogen 34 mg/dL (8-23); Calcium 8.9 mg/dL (8.5-10.5); Carbon Dioxide 23 mmol/L (22-29); Chloride 103 mmol/L (98-107); Ferritin 300 ng/mL (15-150); Globulin 2.6 g/dL (1.3-4.6); Glomerular Filtration Rate 29.8 mL/min (90-130); Glucose 154 mg/dL (65-115); Iron 37 ug/dL (37-145); Osmolality Calculated 297 mOsm/kg (285-295); Percent Saturation 12.8 % (20-50); Potassium 5.2 mmol/L (3.5-5.1); Sodium 138 mmol/L (136-145); Thyroid Stimulating Hormone 1.44 uIU/mL (0.27-4.20); Total Bilirubin 0.3 mg/dL (0.15-1.2); Total Iron Binding Capacity 287 mcg/dl; Total Protein 6.5 g/dL (6.6-8.7); Unsaturated Iron Binding 250 ug/dL (112-347); Vitamin B12 813 pg/mL (232-1245)
[2024-07-28 10:15] LABS: Estmated Average Glucose 117; Hemoglobin A1C 5.7 % (4.0-6.0)
[2024-07-28 10:37] LABS: Immunoglobulin IGA 62 mg/dL (70-400); Immunoglobulin IGG 1038 mg/dL (700-1600); Immunoglobulin IGM 43 mg/dL (40-230)
[2024-07-28 12:04] LABS: Folate Level > 20.0 ng/mL (4.8-37.3)
[2024-07-29 09:58] LABS: PROTEIN, TOTAL 6.3 g/dL (6.1-8.1)
[2024-07-29 13:33] LABS: KAPPA LIGHT CHAIN, FREE, SERUM 23.2 mg/L (3.3-19.4); KAPPA/LAMBDA LIGHT CHAINS FREE 0.28 (0.26-1.65); LAMBDA LIGHT CHAIN, FREE, SERU 82.3 mg/L (5.7-26.3)
[2024-07-29 20:15] LABS: ABNORMAL PROTEIN BAND 1 0.7 g/dL (NONE DETECTED); ALBUMIN 3.6 g/dL (3.8-4.8); ALPHA 1 GLOBULIN 0.4 g/dL (0.2-0.3); ALPHA 2 GLOBULIN 0.8 g/dL (0.5-0.9); BETA 1 GLOBULIN 0.4 g/dL (0.4-0.6); BETA 2 GLOBULIN 0.3 g/dL (0.2-0.5); GAMMA GLOBULIN 0.9 g/dL (0.8-1.7)
[2024-08-04 10:08] LABS: Basophils # 0.1 10^3/uL (0.0-0.1); Basophils % 0.9 %; Eosinophils # 0.4 10^3/uL (0.0-0.8); Eosinophils % 3.6 %; Hematocrit 29.4 % (36-47); Lymphocytes # 1.7 10^3/uL (0.8-4.8); Lymphocytes % 17.1 %; Mean Corpuscular HGB Conc 29.9 g/dL (30-55); Mean Corpuscular Hemoglobin 28.6 pg (27-33); Mean Corpuscular Volume 95.5 fl (85-98); Mean Platelet Volume 10.3 fL (7.4-10.4); Monocytes # 0.8 10^3/uL (0.2-0.9); Neutrophils # 6.74 10^3/uL (1.8-7.7); Nucleated Red Blood Cells % 0 %; Platelet Count 256 10^3/cmm (157-399); Red Blood Count 3.08 10^6/uL (3.85-5.65); Red Cell Distribution Width 13.6 % (12.1-15.1); White Blood Count 9.64 10^3/uL (3.29-11.43)
[2024-08-04] MEDS: epoetin alfa-epbx 40,000 unit/ml SDV (non-ESRD oncology clinic) 40000 UNIT SUBCUT (10:52)
== END 2024-08-04 23:59 | disposition home or self-care (01) ==
PROVIDERS: PCP Family Medicine; Visit Provider Internal Medicine Medical Oncology
DX: D63.1 Anemia in chronic kidney disease; Z79.899 Other long term (current) drug therapy; Z53.9 Procedure and treatment not carried out, unspecified reason
CPT/HCPCS: 36415; 80053; 82607; 82728; 82746; 82784; 83036; 83540; 83550; 83883; 84155; 84165; 84443; 85025; 96372; 99214; Q5106

== ENCOUNTER 2024-09-01 10:30 | Oncology outpatient (recurring) (ONCR) | payer MEDICARE, OTHER, SELFPAY ==
[2024-08-11 10:24] LABS: Basophils # 0.1 10^3/uL (0.0-0.1); Eosinophils # 0.6 10^3/uL (0.0-0.8); Eosinophils % 4.7 %; Hematocrit 33.8 % (36-47); Lymphocytes # 1.9 10^3/uL (0.8-4.8); Lymphocytes % 15.5 %; Mean Corpuscular HGB Conc 30.2 g/dL (30-55); Mean Corpuscular Hemoglobin 29.1 pg (27-33); Mean Corpuscular Volume 96.6 fl (85-98); Mean Platelet Volume 9.8 fL (7.4-10.4); Monocytes % 8.1 %; Nucleated Red Blood Cells % 0 %; Platelet Count 317 10^3/cmm (157-399); Red Cell Distribution Width 14.6 % (12.1-15.1); White Blood Count 12.29 10^3/uL (3.29-11.43)
[2024-08-11 10:42] LABS: Alanine Aminotransferase 14 U/L (0-33); Albumin Level 4.2 g/dL (3.5-5.2); Alkaline Phosphatase 70 U/L (35-105); Anion Gap 15.4 (5-19); Aspartate Amino Transferase 16 U/L (0-32); Blood Urea Nitrogen 36 mg/dL (8-23); Calcium 9.4 mg/dL (8.5-10.5); Carbon Dioxide 22 mmol/L (22-29); Chloride 106 mmol/L (98-107); Globulin 2.8 g/dL (1.3-4.6); Glomerular Filtration Rate 26.2 mL/min (90-130); Glucose 140 mg/dL (65-115); Osmolality Calculated 297 mOsm/kg (285-295); Potassium 5.4 mmol/L (3.5-5.1); Sodium 138 mmol/L (136-145); Total Bilirubin 0.3 mg/dL (0.15-1.2)
--- NOTE | 2024-08-11 10:42 | PC.NURSE ---
Informed Dr. Jones and pt of HGB 10.2. Pt did not require Retacrit today. Pt voiced understanding./lc
[2024-08-18 10:36] LABS: Basophils # 0.1 10^3/uL (0.0-0.1); Basophils % 1.2 %; Eosinophils # 0.5 10^3/uL (0.0-0.8); Eosinophils % 5.4 %; Hematocrit 32.8 % (36-47); Lymphocytes # 1.8 10^3/uL (0.8-4.8); Lymphocytes % 18.3 %; Mean Corpuscular HGB Conc 30.2 g/dL (30-55); Mean Corpuscular Volume 96.2 fl (85-98); Monocytes # 0.9 10^3/uL (0.2-0.9); Monocytes % 9.6 %; Neutrophils # 6.29 10^3/uL (1.8-7.7); Neutrophils % 65.1 %; Nucleated Red Blood Cells % 0 %; Platelet Count 233 10^3/cmm (157-399); Red Blood Count 3.41 10^6/uL (3.85-5.65); Red Cell Distribution Width 14.4 % (12.1-15.1); White Blood Count 9.67 10^3/uL (3.29-11.43)
[2024-08-18] MEDS: epoetin alfa-epbx 40,000 unit/ml SDV (non-ESRD oncology clinic) 40000 UNIT SUBCUT (11:22)
[2024-08-25 10:33] LABS: Basophils # 0.1 10^3/uL (0.0-0.1); Eosinophils # 0.5 10^3/uL (0.0-0.8); Eosinophils % 4.5 %; Hematocrit 33.2 % (36-47); Lymphocytes # 1.6 10^3/uL (0.8-4.8); Lymphocytes % 15.7 %; Mean Corpuscular HGB Conc 29.8 g/dL (30-55); Mean Corpuscular Hemoglobin 29.3 pg (27-33); Mean Corpuscular Volume 98.2 fl (85-98); Mean Platelet Volume 9.8 fL (7.4-10.4); Monocytes # 0.8 10^3/uL (0.2-0.9); Monocytes % 7.6 %; Neutrophils # 7.13 10^3/uL (1.8-7.7); Neutrophils % 70.6 %; Nucleated Red Blood Cells % 0 %; Platelet Count 271 10^3/cmm (157-399); Red Blood Count 3.38 10^6/uL (3.85-5.65); Red Cell Distribution Width 15.1 % (12.1-15.1)
[2024-08-25] MEDS: epoetin alfa-epbx 40,000 unit/ml SDV (non-ESRD oncology clinic) 40000 UNIT SUBCUT (11:34)
[2024-09-01 10:40] LABS: Basophils # 0.1 10^3/uL (0.0-0.1); Basophils % 1.1 %; Eosinophils # 0.5 10^3/uL (0.0-0.8); Hematocrit 36.4 % (36-47); Lymphocytes # 1.4 10^3/uL (0.8-4.8); Lymphocytes % 14.4 %; Mean Corpuscular HGB Conc 28.3 g/dL (30-55); Mean Corpuscular Hemoglobin 29.2 pg (27-33); Mean Corpuscular Volume 103.1 fl (85-98); Mean Platelet Volume 9.9 fL (7.4-10.4); Monocytes % 9.6 %; Neutrophils # 6.83 10^3/uL (1.8-7.7); Neutrophils % 69.3 %; Nucleated Red Blood Cells % 0 %; Platelet Count 223 10^3/cmm (157-399); Red Blood Count 3.53 10^6/uL (3.85-5.65); Red Cell Distribution Width 15.2 % (12.1-15.1); White Blood Count 9.86 10^3/uL (3.29-11.43)
--- NOTE | 2024-09-01 10:42 | PC.NURSE ---
HGB 10.3. Per parameters pt does not need Retacrit injection today. Pt voiced understanding and will return as scheduled/lc
== END 2024-09-03 23:59 | disposition home or self-care (01) ==
PROVIDERS: PCP Family Medicine; Visit Provider Internal Medicine Medical Oncology
DX: Z53.9 Procedure and treatment not carried out, unspecified reason; N18.9 Chronic kidney disease, unspecified; D63.1 Anemia in chronic kidney disease; D50.8 Other iron deficiency anemias
CPT/HCPCS: 36415; 80053; 83036; 83880; 85025; 96372; Q5106

== ENCOUNTER 2024-09-02 08:52 | Outpatient (CLI) | payer MEDICARE, OTHER, SELFPAY | END 2024-09-02 08:53 | disposition home or self-care (01) | LOC: RT 08:54 | PROVIDERS: PCP Family Medicine; Visit Provider Family Medicine | DX: R09.02 Hypoxemia (principal) | CPT/HCPCS: 94010 ==

== ENCOUNTER 2024-09-30 14:15 | Oncology outpatient (recurring) (ONCR) | payer MEDICARE, OTHER, SELFPAY ==
[2024-09-08 10:50] LABS: Basophils # 0.1 10^3/uL (0.0-0.1); Basophils % 0.9 %; Eosinophils # 0.4 10^3/uL (0.0-0.8); Lymphocytes # 1.4 10^3/uL (0.8-4.8); Lymphocytes % 14.4 %; Mean Corpuscular HGB Conc 29.7 g/dL (30-55); Mean Corpuscular Hemoglobin 28.3 pg (27-33); Mean Corpuscular Volume 95.1 fl (85-98); Mean Platelet Volume 10.3 fL (7.4-10.4); Monocytes # 0.7 10^3/uL (0.2-0.9); Monocytes % 7.4 %; Neutrophils % 72.9 %; Nucleated Red Blood Cells % 0 %; Platelet Count 247 10^3/cmm (157-399); Red Blood Count 3.68 10^6/uL (3.85-5.65); Red Cell Distribution Width 14.5 % (12.1-15.1); White Blood Count 9.74 10^3/uL (3.29-11.43)
[2024-09-08 11:07] LABS: Alanine Aminotransferase 14 U/L (0-33); Albumin Level 3.9 g/dL (3.5-5.2); Alkaline Phosphatase 67 U/L (35-105); Anion Gap 19.2 (5-19); Aspartate Amino Transferase 18 U/L (0-32); Blood Urea Nitrogen 33 mg/dL (8-23); Calcium 9.1 mg/dL (8.5-10.5); Carbon Dioxide 20 mmol/L (22-29); Chloride 103 mmol/L (98-107); Creatinine Clr Calc Pharmacy 48.1378; Ferritin 231 ng/mL (15-150); Glomerular Filtration Rate 29.8 mL/min (90-130); Glucose 141 mg/dL (65-115); Iron 37 ug/dL (37-145); Osmolality Calculated 294 mOsm/kg (285-295); Percent Saturation 12.4 % (20-50); Potassium 5.2 mmol/L (3.5-5.1); Sodium 137 mmol/L (136-145); Total Bilirubin 0.3 mg/dL (0.15-1.2); Total Iron Binding Capacity 297 mcg/dl; Total Protein 6.9 g/dL (6.6-8.7); Unsaturated Iron Binding 260 ug/dL (112-347)
[2024-09-15 14:31] LABS: Basophils # 0.1 10^3/uL (0.0-0.1); Basophils % 0.7 %; Eosinophils # 0.5 10^3/uL (0.0-0.8); Eosinophils % 4.2 %; Hematocrit 35.2 % (36-47); Lymphocytes % 16.9 %; Mean Corpuscular HGB Conc 29.8 g/dL (30-55); Mean Corpuscular Hemoglobin 27.8 pg (27-33); Mean Corpuscular Volume 93.1 fl (85-98); Mean Platelet Volume 10.4 fL (7.4-10.4); Monocytes # 0.9 10^3/uL (0.2-0.9); Monocytes % 7.8 %; Neutrophils # 8.48 10^3/uL (1.8-7.7); Neutrophils % 70.1 %; Nucleated Red Blood Cells % 0 %; Platelet Count 279 10^3/cmm (157-399); Red Blood Count 3.78 10^6/uL (3.85-5.65); Red Cell Distribution Width 14.4 % (12.1-15.1)
[2024-09-22 14:58] LABS: Basophils # 0.1 10^3/uL (0.0-0.1); Basophils % 1.1 %; Eosinophils # 0.5 10^3/uL (0.0-0.8); Eosinophils % 4.2 %; Hematocrit 38.3 % (36-47); Lymphocytes # 1.9 10^3/uL (0.8-4.8); Lymphocytes % 15.8 %; Mean Corpuscular HGB Conc 27.9 g/dL (30-55); Mean Corpuscular Hemoglobin 27.9 pg (27-33); Mean Corpuscular Volume 99.7 fl (85-98); Mean Platelet Volume 10.7 fL (7.4-10.4); Monocytes # 1.1 10^3/uL (0.2-0.9); Monocytes % 8.7 %; Neutrophils # 8.54 10^3/uL (1.8-7.7); Neutrophils % 69.5 %; Nucleated Red Blood Cells % 0 %; Platelet Count 245 10^3/cmm (157-399); Red Blood Count 3.84 10^6/uL (3.85-5.65); Red Cell Distribution Width 14.4 % (12.1-15.1); White Blood Count 12.28 10^3/uL (3.29-11.43)
[2024-09-30 14:27] LABS: Basophils # 0.1 10^3/uL (0.0-0.1); Basophils % 0.7 %; Eosinophils # 0.4 10^3/uL (0.0-0.8); Eosinophils % 3.8 %; Hematocrit 33.4 % (36-47); Lymphocytes # 1.9 10^3/uL (0.8-4.8); Lymphocytes % 16.3 %; Mean Corpuscular HGB Conc 30.8 g/dL (30-55); Mean Corpuscular Volume 90.8 fl (85-98); Mean Platelet Volume 10.2 fL (7.4-10.4); Monocytes # 0.8 10^3/uL (0.2-0.9); Monocytes % 7.1 %; Neutrophils # 8.17 10^3/uL (1.8-7.7); Neutrophils % 71.7 %; Nucleated Red Blood Cells % 0 %; Platelet Count 262 10^3/cmm (157-399); Red Blood Count 3.68 10^6/uL (3.85-5.65); Red Cell Distribution Width 14.5 % (12.1-15.1); White Blood Count 11.39 10^3/uL (3.29-11.43)
--- NOTE | 2024-09-30 15:22 | PC.NURSE ---
HGB 10.3. Pt did not need injection at this time. Pt voiced understanding/lc
== END 2024-10-04 23:59 | disposition home or self-care (01) ==
PROVIDERS: PCP Family Medicine; Visit Provider Internal Medicine Medical Oncology
DX: Z53.9 Procedure and treatment not carried out, unspecified reason; N18.9 Chronic kidney disease, unspecified; D63.1 Anemia in chronic kidney disease; D50.8 Other iron deficiency anemias
CPT/HCPCS: 36415; 80053; 82728; 83540; 83550; 85025; 99214

== ENCOUNTER 2024-11-03 12:00 | Oncology outpatient (recurring) (ONCR) | payer MEDICARE, OTHER, SELFPAY ==
[2024-10-06 14:22] LABS: Basophils # 0.1 10^3/uL (0.0-0.1); Eosinophils # 0.5 10^3/uL (0.0-0.8); Eosinophils % 4.8 %; Hematocrit 34.8 % (36-47); Lymphocytes # 1.7 10^3/uL (0.8-4.8); Lymphocytes % 18.5 %; Mean Corpuscular HGB Conc 29.6 g/dL (30-55); Mean Corpuscular Hemoglobin 27.5 pg (27-33); Mean Platelet Volume 10.5 fL (7.4-10.4); Monocytes # 0.7 10^3/uL (0.2-0.9); Monocytes % 7.8 %; Neutrophils # 6.32 10^3/uL (1.8-7.7); Neutrophils % 67.4 %; Nucleated Red Blood Cells % 0 %; Platelet Count 243 10^3/cmm (157-399); Red Blood Count 3.74 10^6/uL (3.85-5.65); Red Cell Distribution Width 14.6 % (12.1-15.1); White Blood Count 9.37 10^3/uL (3.29-11.43)
--- NOTE | 2024-10-06 14:31 | PC.NURSE ---
HGB 10.3 Pt did not need Retracrit at this time. Pt voiced understanding/lc
--- NOTE | 2024-10-10 11:15 | USCV_ITS ---
Alicja Flaherty Age: 68 Gender: F : 1955 Exam Date: 10/10/2024 11:08 Ordering Phys: Sybil Meehan MD Technologist: MANSI [place] [facility] [place]ication: Edema, SoB BP: 157 / 67 HR: 66 Rhythm: Sinus Technical Quality: Adequate MEASUREMENTS (Male / Female) Normal Values 2D ECHO LV Diastolic Diameter PLAX 6.0 cm 4.2 - 5.9 / 3.9 - 5.3 cm IVS Diastolic Thickness 1.0 cm 0.6 - 1.0 / 0.6 - 0.9 cm IVS Systolic Thickness 1.8 cm LVPW Diastolic Thickness 1.7 cm 0.6 - 1.0 / 0.6 - 0.9 cm LVPW Systolic Thickness 1.5 cm LVOT Diameter 1.9 cm LV Ejection Fraction 2D Teich 56.6 % LV Ejection Fraction MOD 4C 64.0 % LV Ejection Fraction MOD 2C 47.1 % LV Ejection Fraction 2C AL 47.6 % LA Diameter 3.9 cm RA Systolic Volume 4C AL 54.9 ml RA Systolic Volume 4C MOD 53.9 ml LA Sys Volume AL 53.4 cm cubed LA Sys Volume Index AL 19.2 cm cubed/m squared Aorta at Sinotubular Diameter 2.9 cm IVC Diameter 2.7 cm M-MODE LA Ao Ratio MM 1.6 MV E Point Septal Separation 1.3 cm AV Cusp Separation MM 1.7 cm DOPPLER AV Peak Velocity 162.0 cm/s LVOT Peak Velocity 145.0 cm/s AV Area Cont Eq vti 2.7 cm squared AV Area Cont Eq pk 2.6 cm squared MV Peak Velocity 99.0 cm/s MV Area PHT 3.9 cm squared Mitral E to A Ratio 1.2 TV Peak Velocity 189.0 cm/s TR Peak Velocity 287.0 cm/s TR Peak Gradient 32.9 mmHg TV Peak E Velocity 75.0 cm/s PV Peak Velocity 162.0 cm/s FINDINGS Left Ventricle Normal left ventricular size, systolic function and wall thickness, with no regional wall motion abnormalities. Left ventricular ejection fraction is estimated at 60 %. Grade I/IV diastolic dysfunction (abnormal relaxation filling pattern), normal to mildly elevated filling pressures. Right Ventricle The right ventricle is normal in size and function. Right Atrium The right atrium is normal in size. Left Atrium The left atrium is normal in size. Mitral Valve Structurally normal mitral valve without significant stenosis or prolapse. There is no mitral regurgitation. Aortic Valve Structurally normal aortic valve without significant sclerosis or stenosis. There is no aortic regurgitation. Tricuspid Valve Structurally normal tricuspid valve without significant stenosis or regurgitation. Pulmonary artery systolic pressure is normal. Pulmonic Valve Structurally normal pulmonic valve without significant stenosis. There is no pulmonic regurgitation. Pericardium Normal pericardium without effusion. Aorta Normal ascending aorta dimension. IVC The inferior vena cava appears normal. CONCLUSIONS Normal left ventricular size, systolic function and wall thickness, with no regional wall motion abnormalities. Left ventricular ejection fraction is estimated at 60 %. Grade I/IV diastolic dysfunction (abnormal relaxation filling pattern), normal to mildly elevated filling pressures. There is no pericardial effusion. No significant valve abnormalities. Right atrial pressure is around 5 mm of mercury. Africa Carr MD (Electronically Signed) Final Date: 13 October 2024 22:17 S
[2024-10-13 14:23] LABS: Basophils # 0.1 10^3/uL (0.0-0.1); Basophils % 0.8 %; Eosinophils # 0.4 10^3/uL (0.0-0.8); Eosinophils % 3.8 %; Hematocrit 34.1 % (36-47); Lymphocytes # 2.2 10^3/uL (0.8-4.8); Lymphocytes % 19.8 %; Mean Corpuscular HGB Conc 29.6 g/dL (30-55); Mean Corpuscular Hemoglobin 27.6 pg (27-33); Mean Corpuscular Volume 93.2 fl (85-98); Mean Platelet Volume 10.5 fL (7.4-10.4); Monocytes # 0.8 10^3/uL (0.2-0.9); Monocytes % 7.5 %; Neutrophils # 7.37 10^3/uL (1.8-7.7); Neutrophils % 67.6 %; Nucleated Red Blood Cells % 0 %; Platelet Count 228 10^3/cmm (157-399); Red Blood Count 3.66 10^6/uL (3.85-5.65); Red Cell Distribution Width 14.7 % (12.1-15.1); White Blood Count 10.91 10^3/uL (3.29-11.43)
--- NOTE | 2024-10-13 14:44 | PC.NURSE ---
HGB 10.10. Informed pt she did not need injection today per parameters. Pt voiced understanding. Pt to return to [facility] as scheduled/lc
[2024-10-20 13:43] LABS: Basophils # 0.1 10^3/uL (0.0-0.1); Basophils % 0.9 %; Eosinophils # 0.4 10^3/uL (0.0-0.8); Eosinophils % 3.9 %; Hematocrit 33.1 % (36-47); Lymphocytes # 1.7 10^3/uL (0.8-4.8); Lymphocytes % 15.7 %; Mean Corpuscular HGB Conc 30.8 g/dL (30-55); Mean Corpuscular Volume 90.9 fl (85-98); Mean Platelet Volume 10.3 fL (7.4-10.4); Monocytes # 0.9 10^3/uL (0.2-0.9); Monocytes % 8.3 %; Neutrophils # 7.77 10^3/uL (1.8-7.7); Neutrophils % 70.6 %; Nucleated Red Blood Cells % 0 %; Platelet Count 246 10^3/cmm (157-399); Red Blood Count 3.64 10^6/uL (3.85-5.65); Red Cell Distribution Width 14.9 % (12.1-15.1); White Blood Count 11.01 10^3/uL (3.29-11.43)
[2024-10-20 14:04] LABS: Alanine Aminotransferase 15 U/L (0-33); Alkaline Phosphatase 69 U/L (35-105); Anion Gap 17.8 (5-19); Aspartate Amino Transferase 17 U/L (0-32); Blood Urea Nitrogen 32 mg/dL (8-23); Calcium 8.7 mg/dL (8.5-10.5); Carbon Dioxide 20 mmol/L (22-29); Chloride 106 mmol/L (98-107); Ferritin 258 ng/mL (15-150); Globulin 2.8 g/dL (1.3-4.6); Glucose 86 mg/dL (65-115); Iron 40 ug/dL (37-145); Osmolality Calculated 294 mOsm/kg (285-295); Percent Saturation 13.8 % (20-50); Potassium 4.8 mmol/L (3.5-5.1); Sodium 139 mmol/L (136-145); Total Bilirubin 0.3 mg/dL (0.15-1.2); Total Iron Binding Capacity 289 mcg/dl; Total Protein 6.8 g/dL (6.6-8.7); Unsaturated Iron Binding 249 ug/dL (112-347)
[2024-10-21 06:22] LABS: PROTEIN, TOTAL 6.5 g/dL (6.1-8.1)
[2024-10-21 14:48] LABS: KAPPA LIGHT CHAIN, FREE, SERUM 21.5 mg/L (3.3-19.4); KAPPA/LAMBDA LIGHT CHAINS FREE 0.25 (0.26-1.65); LAMBDA LIGHT CHAIN, FREE, SERU 85.5 mg/L (5.7-26.3)
[2024-10-22 15:36] LABS: ABNORMAL PROTEIN BAND 1 0.7 g/dL (NONE DETECTED); ALBUMIN 3.7 g/dL (3.8-4.8); ALPHA 1 GLOBULIN 0.4 g/dL (0.2-0.3); ALPHA 2 GLOBULIN 0.8 g/dL (0.5-0.9); BETA 1 GLOBULIN 0.4 g/dL (0.4-0.6); BETA 2 GLOBULIN 0.3 g/dL (0.2-0.5)
[2024-11-03 11:07] LABS: Basophils # 0.1 10^3/uL (0.0-0.1); Basophils % 0.9 %; Eosinophils # 0.4 10^3/uL (0.0-0.8); Eosinophils % 4.3 %; Hematocrit 33.7 % (36-47); Lymphocytes # 1.5 10^3/uL (0.8-4.8); Lymphocytes % 15.9 %; Mean Corpuscular HGB Conc 29.7 g/dL (30-55); Mean Corpuscular Hemoglobin 27.9 pg (27-33); Mean Corpuscular Volume 94.1 fl (85-98); Mean Platelet Volume 10.4 fL (7.4-10.4); Monocytes # 0.7 10^3/uL (0.2-0.9); Monocytes % 7.5 %; Neutrophils % 70.9 %; Nucleated Red Blood Cells % 0 %; Platelet Count 232 10^3/cmm (157-399); Red Blood Count 3.58 10^6/uL (3.85-5.65); Red Cell Distribution Width 15.1 % (12.1-15.1); White Blood Count 9.31 10^3/uL (3.29-11.43)
== END 2024-11-03 23:59 | disposition home or self-care (01) ==
PROVIDERS: Internal Medicine Medical Oncology; Nurse Practitioner Family; PCP Family Medicine; Visit Provider Family Medicine
DX: D50.8 Other iron deficiency anemias; Z53.9 Procedure and treatment not carried out, unspecified reason
CPT/HCPCS: 36415; 80053; 82728; 83540; 83550; 83883; 84155; 84165; 85025; 93306; 99214

== ENCOUNTER → 2024-11-10 11:32 | Outpatient (BNVA) | payer MEDICARE, OTHER, SELFPAY | PROVIDERS: PCP Family Medicine; Visit Provider Family Medicine | DX: E11.9 Type 2 diabetes mellitus without complications (principal); E78.2 Mixed hyperlipidemia | CPT/HCPCS: 80061; 83036 ==

== ENCOUNTER 2024-12-01 12:45 | Oncology outpatient (recurring) (ONCR) | payer MEDICARE, OTHER, SELFPAY ==
[2024-11-17 11:50] LABS: Hematocrit 31.1 % (36-47); Hemoglobin 9.60 g/dL (11.27-16.99); Mean Corpuscular HGB Conc 30.9 g/dL (30-55); Mean Corpuscular Hemoglobin 27.8 pg (27-33); Mean Corpuscular Volume 90.1 fl (85-98); Nucleated Red Blood Cells % 0 %; Platelet Count 228 10^3/cmm (157-399); Red Blood Count 3.45 10^6/uL (3.85-5.65); White Blood Count 10.31 10^3/uL (3.29-11.43)
[2024-11-17] MEDS: epoetin alfa-epbx 40,000 unit/ml SDV (non-ESRD oncology clinic) 40000 UNIT SUBCUT (12:51)
[2024-12-01 13:11] LABS: Hematocrit 33.1 % (36-47); Hemoglobin 9.90 g/dL (11.27-16.99); Mean Corpuscular HGB Conc 29.9 g/dL (30-55); Mean Corpuscular Hemoglobin 27.9 pg (27-33); Mean Corpuscular Volume 93.2 fl (85-98); Nucleated Red Blood Cells % 0 %; Platelet Count 225 10^3/cmm (157-399); Red Blood Count 3.55 10^6/uL (3.85-5.65); White Blood Count 10.12 10^3/uL (3.29-11.43)
[2024-12-01 13:35] LABS: Alanine Aminotransferase 15 U/L (0-33); Albumin Level 3.9 g/dL (3.5-5.2); Alkaline Phosphatase 71 U/L (35-105); Anion Gap 18.8 (5-19); Aspartate Amino Transferase 17 U/L (0-32); Blood Urea Nitrogen 39 mg/dL (8-23); Calcium 8.9 mg/dL (8.5-10.5); Carbon Dioxide 23 mmol/L (22-29); Chloride 104 mmol/L (98-107); Creatinine Clr Calc Pharmacy 36.3327; Ferritin 258 ng/mL (15-150); Globulin 3.0 g/dL (1.3-4.6); Glucose 105 mg/dL (65-115); Iron 28 ug/dL (37-145); Osmolality Calculated 302 mOsm/kg (285-295); Potassium 4.8 mmol/L (3.5-5.1); Sodium 141 mmol/L (136-145); Total Iron Binding Capacity 274 mcg/dl; Total Protein 6.9 g/dL (6.6-8.7); Unsaturated Iron Binding 246 ug/dL (112-347)
[2024-12-01] MEDS: epoetin alfa-epbx 40,000 unit/ml SDV (non-ESRD oncology clinic) 40000 UNIT SUBCUT (14:21)
== END 2024-12-04 23:59 | disposition home or self-care (01) ==
PROVIDERS: Nurse Practitioner Family; PCP Family Medicine; Visit Provider Family Medicine
DX: D50.8 Other iron deficiency anemias; R03.0 Elevated blood-pressure reading, without diagnosis of hypertension; D47.2 Monoclonal gammopathy; N18.32 Chronic kidney disease, stage 3b; Z87.891 Personal history of nicotine dependence; Z79.899 Other long term (current) drug therapy; Z53.9 Procedure and treatment not carried out, unspecified reason
CPT/HCPCS: 36415; 80053; 82728; 83540; 83550; 85025; 96372; 99214; Q5106

== ENCOUNTER → 2024-12-17 09:11 | Outpatient (BNVA) | payer MEDICARE, OTHER, SELFPAY | PROVIDERS: PCP Family Medicine; Visit Provider Student in an Organized Health Care Education/Training Program | DX: M65.332 Trigger finger, left middle finger (principal); M79.642 Pain in left hand | CPT/HCPCS: 73130; 99214 ==

== ENCOUNTER 2024-12-22 08:15 | Oncology outpatient (recurring) (ONCR) | payer MEDICARE, OTHER, SELFPAY ==
[2024-12-08 09:47] LABS: Hematocrit 32.8 % (36-47); Hemoglobin 9.90 g/dL (11.27-16.99); Mean Corpuscular HGB Conc 30.2 g/dL (30-55); Mean Corpuscular Hemoglobin 27.8 pg (27-33); Mean Corpuscular Volume 92.1 fl (85-98); Nucleated Red Blood Cells % 0 %; Platelet Count 275 10^3/cmm (157-399); Red Blood Count 3.56 10^6/uL (3.85-5.65); White Blood Count 11.05 10^3/uL (3.29-11.43)
[2024-12-08 10:05] LABS: Alanine Aminotransferase 17 U/L (0-33); Albumin Level 3.9 g/dL (3.5-5.2); Alkaline Phosphatase 74 U/L (35-105); Anion Gap 16.5 (5-19); Aspartate Amino Transferase 19 U/L (0-32); Blood Urea Nitrogen 43 mg/dL (8-23); Calcium 9.3 mg/dL (8.5-10.5); Carbon Dioxide 22 mmol/L (22-29); Chloride 105 mmol/L (98-107); Globulin 3.0 g/dL (1.3-4.6); Glucose 161 mg/dL (65-115); Osmolality Calculated 302 mOsm/kg (285-295); Potassium 4.5 mmol/L (3.5-5.1); Sodium 139 mmol/L (136-145); Total Protein 6.9 g/dL (6.6-8.7)
[2024-12-08] MEDS: epoetin alfa-epbx 40,000 unit/ml SDV (non-ESRD oncology clinic) 40000 UNIT SUBCUT (10:22)
[2024-12-15 10:05] LABS: Hematocrit 35.0 % (36-47); Hemoglobin 10.70 g/dL (11.27-16.99); Mean Corpuscular HGB Conc 30.6 g/dL (30-55); Mean Corpuscular Hemoglobin 27.9 pg (27-33); Mean Corpuscular Volume 91.1 fl (85-98); Nucleated Red Blood Cells % 0 %; Platelet Count 273 10^3/cmm (157-399); Red Blood Count 3.84 10^6/uL (3.85-5.65); White Blood Count 12.53 10^3/uL (3.29-11.43)
--- NOTE | 2024-12-15 10:21 | PC.NURSE ---
HGB 10.7. Result reviewed with pt. Per parameters pt does not need Retacrit injection today. Pt voiced understanding/lc
[2024-12-15 10:24] LABS: Alanine Aminotransferase 15 U/L (0-33); Albumin Level 4.0 g/dL (3.5-5.2); Alkaline Phosphatase 73 U/L (35-105); Anion Gap 18.2 (5-19); Aspartate Amino Transferase 17 U/L (0-32); Blood Urea Nitrogen 37 mg/dL (8-23); Calcium 8.9 mg/dL (8.5-10.5); Carbon Dioxide 19 mmol/L (22-29); Chloride 107 mmol/L (98-107); Globulin 3.0 g/dL (1.3-4.6); Glucose 140 mg/dL (65-115); Osmolality Calculated 301 mOsm/kg (285-295); Potassium 4.2 mmol/L (3.5-5.1); Sodium 140 mmol/L (136-145); Total Protein 7.0 g/dL (6.6-8.7)
[2024-12-22 08:17] LABS: Hematocrit 34.8 % (36-47); Hemoglobin 10.40 g/dL (11.27-16.99); Mean Corpuscular HGB Conc 29.9 g/dL (30-55); Mean Corpuscular Hemoglobin 28.0 pg (27-33); Mean Corpuscular Volume 93.5 fl (85-98); Nucleated Red Blood Cells % 0 %; Platelet Count 240 10^3/cmm (157-399); Red Blood Count 3.72 10^6/uL (3.85-5.65); White Blood Count 10.65 10^3/uL (3.29-11.43)
[2024-12-22 08:34] LABS: Alanine Aminotransferase 14 U/L (0-33); Albumin Level 3.9 g/dL (3.5-5.2); Alkaline Phosphatase 80 U/L (35-105); Anion Gap 15.3 (5-19); Aspartate Amino Transferase 20 U/L (0-32); Blood Urea Nitrogen 47 mg/dL (8-23); Calcium 8.8 mg/dL (8.5-10.5); Carbon Dioxide 22 mmol/L (22-29); Chloride 105 mmol/L (98-107); Globulin 3.1 g/dL (1.3-4.6); Glucose 133 mg/dL (65-115); Osmolality Calculated 298 mOsm/kg (285-295); Potassium 5.3 mmol/L (3.5-5.1); Sodium 137 mmol/L (136-145); Total Protein 7.0 g/dL (6.6-8.7)
== END 2024-12-27 23:59 | disposition home or self-care (01) ==
PROVIDERS: PCP Family Medicine; Visit Provider Internal Medicine Medical Oncology
DX: D50.8 Other iron deficiency anemias; N18.9 Chronic kidney disease, unspecified; D63.1 Anemia in chronic kidney disease; Z53.9 Procedure and treatment not carried out, unspecified reason
CPT/HCPCS: 36415; 80053; 85025; 96372; Q5106

== ENCOUNTER 2024-12-26 06:05 | Day surgery (SDC) | payer MEDICARE, OTHER, SELFPAY ==
[2024-12-26] VITALS (9 sets, daily range): BP systolic 112–180; BP diastolic 42–71; PULSE 56–74; RESP 18–20; TEMP 36.1; O2SAT 96–98; BMI 54.5
[2024-12-26] MEDS: acetaminophen 1,000 MG/100 ML PIGGYBACK 400 MG IV (06:53)
--- NOTE | 2024-12-26 06:54 | W.PM.OPSUD ---
Surgery/Procedure H&P Update DATE OF PROCEDURE: December 26, 2024 DATE H&P PERFORMED: 12/17/24 H&P UPDATE INFORMATION: I have reviewed H&P completed within last 30 days, I have examined patient prior to procedure and No changes to prior documentation PREOP DIAGNOSIS: Left middle finger trigger PRIMARY INDICATION FOR PROCEDURE: Left middle finger trigger PLANNED PROCEDURE: Operation Date: 12/26/24 08:05 Proposed Procedures p left middle finger trigger release(Left) - Gavin Rubio DO
--- NOTE | 2024-12-26 06:55 | ANES.PREANE2 ---
Pre-Anesthetic Assessment Height/Weight: Height 1.68 m Weight 153.314 kg Temp Pulse Resp BP Pulse Ox O2 Del Method 97.0 F L 74 20 H 180/71 98 Room Air 12/26/24 06:38 12/26/24 06:38 12/26/24 06:38 12/26/24 06:38 12/26/24 06:38 12/26/24 06:38 Preop Diagnosis: Left middle finger trigger Operation Date: 12/26/24 08:05 Proposed Procedures p left middle finger trigger release(Left) - Gavin Rubio DO Familial anesthetic complications: none Was Beta Bill taken within 24 hours: N/A Was Clonidine taken within 24 hours: N/A Last intake: Intake Last Liquid Date 12/25/24 Last Liquid Time 17:00 Last Solid Date 12/25/24 Last Solid Time 17:00 Social No alcohol and No tobacco Exam alert, oriented x 3, clear to auscultation bilaterally and regular rate & rhythm Airway Mallampati: Class IV Dentition: other (missing) Comments: Comments: large neck circumference Pulmonary Sleep Apnea CV/HEM Congestive Heart Failure and Hypertension Chronic Renal Insufficiency Metabolic Diabetes Mellitus, Hyperlipidemia and Morbid [place] [facility] [place] [place] Anesthetic Plan ASA status: 4 Anesthesia: Choice Other: Has done well with a MAC for CTR last april at 153 kg Risk of > 500 ml blood loss (7ml/kg in children): No Medications/Allergies Home Medications ?Medication ?Instructions ?Recorded ?Confirmed ?Last Taken ?Type albuterol sulfate 2.5 mg/3 mL 2.5 mg (3 mL) inhalation QID PRN 03/29/22 12/26/24 12/25/24 Rx (0.083 %) solution for nebulization shortness of breath or wheezing #75 mL acetaminophen 325 mg tablet 650 mg PO BID Pain 01/04/23 12/26/24 12/25/24 History (Tylenol) BIPAP supplies #1 ea 05/08/23 12/26/24 Unknown Rx ferrous sulfate 325 mg (65 mg 325 mg PO BID #180 tabs 01/30/24 12/26/24 12/25/24 Rx iron) tablet (Iron (ferrous sulfate)) cholecalciferol (vitamin D3) 50 50 mcg PO DAILY 07/09/24 12/26/24 12/25/24 History mcg (2,000 unit) tablet supplemental oxygen #1 ea 03/05/25 08/22/25 Unknown Rx diclofenac sodium 1 % topical gel 4 g topical QID PRN arthritis pain 11/10/24 12/26/24 12/25/24 Rx (Voltaren Arthritis Pain) #100 grams amoxicillin 875 mg-potassium 1 tab PO Q12H #14 tabs 12/19/24 12/26/24 12/25/24 Rx clavulanate 125 mg tablet furosemide 40 mg tablet 40 mg PO DAILY #90 tabs 12/19/24 12/26/24 12/25/24 Rx isosorbide mononitrate 30 mg See Rx Instructions .Route 12/19/24 12/26/24 12/26/24 05:45 Rx tablet,extended release 24 hr .COMPLEX #90 tabs lisinopril 40 mg tablet 40 mg PO DAILY #90 tabs 12/19/24 12/26/24 12/25/24 Rx metformin 750 mg tablet,extended 750 mg PO BID #90 tabs 12/19/24 12/26/24 12/25/24 Rx release 24 hr nitroglycerin 0.4 mg sublingual 0.4 mg sublingual Q5M PRN chest 12/19/24 12/26/24 Unknown Rx tablet pain #30 tabs rosuvastatin 5 mg tablet 5 mg PO BEDTIME #90 tabs 12/19/24 12/26/24 12/25/24 Rx Allergies Allergy/AdvReac Type Severity Reaction Status Date / Time No Known Allergies Allergy Verified 12/19/24 12:48 PFSH Anesthesia Medical History Multiple myeloma Stage 3b chronic kidney disease Degenerative arthritis Obstructive sleep apnea Anemia CHF (congestive heart failure) Type 2 diabetes mellitus Hyperlipidemia Essential hypertension Surgical History History of bilateral carpal tunnel release History of bone marrow biopsy (09/11/22) History of cholecystectomy History of hysterectomy with bilateral oophorectomy History of tubal ligation History of tonsillectomy History of appendectomy History of bilateral cataract extraction Family History Mother CAD (coronary artery disease) Diabetes Hypertension Stroke Sister CAD (coronary artery disease) Cancer Diabetes Father Suicide Brother Pancreatic cancer Sister Colon cancer Lung cancer Social History Smoking and tobacco/nicotine status: never used tobacco/nicotine Quit status (tobacco/nicotine): has quit using Year quit tobacco: 2002 Former quit date comment: Smoked from age 8 to 2002. 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
[2024-12-26 07:32] LABS: Potassium 5.5 mmol/L (3.5-5.1)
[2024-12-26] MEDS: ceFAZolin 3,000 MG in sodium chloride 0.9% (plus) 100 ML 200 MG IV (07:44)
[2024-12-26] MEDS: ROPivacaine 0.5% SDV 30 mL 150 MG INJECTION (08:08)
--- NOTE | 2024-12-26 08:22 | P.BOP_ITS ---
Date of Procedure: 12/26/2024 Surgeon: Gavin Rubio DO Clinical Material Handler(s): None Procedure(s) performed: Left middle finger trigger release Findings of the procedure(s): Underwent procedure as planned without issues or complications Estimated blood loss: 2 mL Specimen(s) removed: None Post-operative diagnosis: Left middle finger trigger
--- NOTE | 2024-12-26 08:23 | PM.OP ---
Operative Report Date of procedure: December 26, 2024 Surgeon: Gavin Rubio DO Procedure: Preoperative diagnosis: Left middle finger trigger Post-op diagnosis: Same Procedure done: Left?middle?finger?trigger?release Surgeon: Gavin Rubio DO Estimated blood loss: 2cc Tourniquet time 7mins Complications: None Condition: stable Disposition: same day Brief History: Patient's been seen and worked up in the outpatient setting and findings consistent with preoperative diagnosis of Left?middle?finger?trigger.? He is failed conservative treatment.? Continues to have mechanical locking and catching.? Severe pain as well.? We talked about treatment options nonoperative versus operative intervention.? ?Patient understands the risk benefits complication alternatives of surgical nonsurgical treatment options.? Understanding his risks with surgery he elects proceed with surgical intervention.? Consent obtained in the preop.? Here today to proceed with surgical intervention.? All questions answered. Procedure: Patient was seen and evaluated in the preoperative holding area.? Consent was reviewed and signed with patient.? Seen evaluated by Anesthesia Department.? Once cleared for surgery was brought back to the operative suite.? Placed in supine position on the OR table all bony prominences well-padded patient properly secured to the bed.? Patient's Left arm was then placed to the armboard.? A nonsterile tourniquet applied to the Left upper arm.? Patient's Left upper extremity was then prepped and draped in standard orthopedic fashion.? Final timeout performed.? Patient received appropriate preoperative antibiotics. Esmarch tourniquet was used exsanguinate the Left upper extremity tourniquet insufflated to 250 mmHg. Under sterile aseptic technique local digital block was performed to the Left?middle?finger.? Once appropriately anesthetized a standard oblique incision was made centering over the A1 rama following patient's flexor crease.? Sharp scalpel incision was made only through skin and then switched to Littler dissection scissors and spread longitudinally directly over the flexor tendon sheath.? I then mobilized both radially and ulnarly and Kasdan retractors were used and placed by my back office medical assistant to protect neurovascular bundle.? Next I visualized the A1 rama and this was incised with a scalpel.? I then switched to dissection scissors and released the A1 rama both proximally as well as distally to its entirety.? Significant tendon sheath fluid was noted consistent with inflammation.? Mild fraying of the flexor tendons noted but no tear.? At this point I utilized a rag nail and pulled the tendons FDS and FDP out of the incision and no?triggering was noted.? I then had anesthesia wake up the patient and patient was able to actively flex and extend with no?triggering.? This point thorough irrigation was performed.? Tourniquet deflated hemostasis satisfactory with bipolar.? I then subsequently closed the incision with interrupted nylon suture.? Xeroform 4 x 4's, Kerlix and an Carl wrap was applied for a bulky soft dressing.? Patient was then subsequently awakened from anesthesia and taken to PACU in stable condition tolerated procedure without issues. Disposition: Patient taken back in stable condition recovering well.? Patient will receive appropriate discharge instruction as well as pain medication postoperatively.? Patient to follow-up with me in the office in 2 weeks for repeat evaluation and incision check.? Patient understands that any questions or concerns and contact the office.? All questions answered.
--- NOTE | 2024-12-26 09:25 | ANE.PACU2 ---
Inpatient post-anesthesia follow up: Airway intact: Yes Vital signs: Temperature 97.0 F Pulse Rate 56 Respiratory Rate 18 Blood Pressure 130/61 Pulse Oximetry 98 Oxygen Delivery Me thod Room Air Oxygen Flow Rate Fraction of Inspir ed Oxygen Hydration adequate: Yes Nausea and vomiting: No Pain level: 1 Mental status: Baseline
== END 2024-12-26 09:22 | disposition home or self-care (01) ==
PROVIDERS: Anesthesiology; PCP Family Medicine; Visit Provider Student in an Organized Health Care Education/Training Program
PROC: (CPT 26055; principal; 2024-12-26 07:55)
DX: M65.332 Trigger finger, left middle finger (principal); G47.33 Obstructive sleep apnea (adult) (pediatric); E11.22 Type 2 diabetes mellitus with diabetic chronic kidney disease; I12.9 Hypertensive chronic kidney disease with stage 1 through stage 4 chronic kidney disease, or unspecified chronic kidney disease; N18.32 Chronic kidney disease, stage 3b; D64.9 Anemia, unspecified; I50.9 Heart failure, unspecified; E78.5 Hyperlipidemia, unspecified; Z79.84 Long term (current) use of oral hypoglycemic drugs; Z87.891 Personal history of nicotine dependence
CPT/HCPCS: 26055; 36415; 36416; 82962; 84132; J0131; J0690; J1885; J2704; J2795; J3010; J7030; J9999